=== PATIENT | female | born 1940 ===

== ENCOUNTER 2016-07-01 15:51 | Observation (INO) | payer MEDICARE, BC ==
--- NOTE | 2016-07-01 18:33 | ED ---
General Adult HPI - General Chief complaint: GI Bleed Stated complaint: RECTAL BLEEDING X 1 WEEK Time Seen by Provider: 07/01/16 18:12 Source: patient, RN notes reviewed Mode of arrival: ambulatory Limitations: no limitations - History of Present Illness Initial comments: Patient's a 75-year-old female who presents emergency room today with chief complaint of a bug stools. Patient does admit that she noticed blood in the stool 2 days ago. She states she woke up with mucus and bright red blood. States that he had normal bowel movement afterwards. States that 2 days later had another episode where some blood. States she went to the family doctor also surgeon. States she was scheduled for colonoscopy is coming Monday. Patient states was going to take the prednisone but was worried because she started noticing of blood again. States called the on-call nurse who advised come here to the emergency room. Patient does admit that she is on blood thinner due to A. fib. She denies any other complaints or symptoms. States never had colonoscopy in the past. Patient denies any recent fever, chills, shortness of breath, chest pain, back pain, nausea or vomiting, numbness or tingling, dysuria or hematuria, constipation or diarrhea, headaches or visual changes, or any other complaints. - Related Data Home Medications Medication Instructions Recorded Confirmed ALPRAZolam [Xanax] 0.75 mg PO BID 12/11/13 07/01/16 Atenolol [Tenormin] 75 mg PO BID@0700,1900 12/11/13 07/01/16 Flecainide [Tambocor] 100 mg PO BID 12/11/13 07/01/16 Rivaroxaban [Xarelto] 20 mg PO DAILY@1630 12/11/13 07/01/16 Anastrozole [Arimidex] 1 mg PO DAILY 07/01/16 07/01/16 Cholecalciferol [Vitamin D3] 5,000 unit PO DAILY 07/01/16 07/01/16 Vitamin C/Biotin [Hair, Skin and 1 tab PO DAILY 07/01/16 07/01/16 Nails] Allergies Allergy/AdvReac Type Severity Reaction Status Date / Time Penicillins Allergy Red face Verified 07/01/16 18:39 Oral steroids Allergy Red face Uncoded 07/01/16 18:39 Review of Systems ROS Statement: Those systems with pertinent positive or pertinent negative responses have been documented in the HPI. ROS Other: All systems not noted in ROS Statement are negative. Past Medical History Past Medical History: Atrial Fibrillation, CVA/TIA, Hypertension Additional Past Medical History / Comment(s): breast CA History of Any Multi-Drug Resistant Organisms: None Reported Past Surgical History: Adenoidectomy, Appendectomy, Section, Hysterectomy, Tonsillectomy Additional Past Surgical History / Comment(s): right mastectomy Past Psychological History: Anxiety Smoking Status: Former smoker Past Alcohol Use History: None Reported Past Drug Use History: None Reported General Exam - General Exam Comments Initial Comments: General: The patient is awake and alert, in no distress, and does not appear acutely ill. Eye: Pupils are equal, round and reactive to light, extra-ocular movements are intact. No nystagmus. There is normal conjunctiva bilaterally. No signs of icterus. Ears, nose, mouth and throat: There are moist mucous membranes and no oral lesions. Neck: The neck is supple, there is no tenderness or JVD. Cardiovascular: There is a regular rate and rhythm. No murmur, rub or gallop is appreciated. Respiratory: Lungs are clear to auscultation, respirations are non-labored, breath sounds are equal. No wheezes, stridor, rales, or rhonchi. Gastrointestinal: Soft, non-distended, non-tender abdomen without masses or organomegaly noted. There is no rebound or guarding present. No CVA tenderness. Bowel sounds are unremarkable. Musculoskeletal: Normal ROM, no tenderness. Strength 5/5. Sensation intact. Pulses equal bilaterally 2+. Neurological: A&O x 3. CN II-XII intact, There are no obvious motor or sensory deficits. Coordination appears grossly intact. Speech is normal. Skin: Skin is warm and dry and no rashes or lesions are noted. Psychiatric: Cooperative, appropriate mood & affect, normal judgment. : Normal rectal tone. Limitations: no limitations Course Vital Signs 07/01/16 15:58 Temperature 97.1 F L Pulse Rate 83 Respiratory 18 Rate Blood Pressure 194/84 O2 Sat by Pulse 100 Oximetry Medical Decision Making - Medical Decision Making Patient reexamined at about signs of distress. Patient's labs show stable hemoglobin. Patient's positive. Patient is on Xeralto. She also will be held. Patient will be admitted for serial CBC. Case discussed with the physician with consult to Dr. Hill who she is scheduled to have colonoscopy. - Lab Data Result diagrams: 07/01/16 18:30 07/01/16 18:30 Lab Results 07/01/16 07/01/16 07/01/16 Range/Units 18:30 18:30 18:30 WBC 6.5 (3.8-10.6) k/uL RBC 4.78 (3.80-5.40) m/uL Hgb 16.1 H (11.4-16.0) gm/dL Hct 47.3 H (34.0-46.0) % MCV 98.9 (80.0-100.0) fL MCH 33.6 (25.0-35.0) pg MCHC 34.0 (31.0-37.0) g/dL RDW 13.1 (11.5-15.5) % Plt Count 213 (150-450) k/uL Neutrophils % 64 % Lymphocytes % 21 % Monocytes % 8 % Eosinophils % 2 % Basophils % 1 % Neutrophils # 4.2 (1.3-7.7) k/uL Lymphocytes # 1.4 (1.0-4.8) k/uL Monocytes # 0.5 (0-1.0) k/uL Eosinophils # 0.1 (0-0.7) k/uL Basophils # 0.1 (0-0.2) k/uL PT (9.0-12.0) sec INR (<1.1) APTT (22.0-30.0) sec Sodium 143 (137-145) mmol/L Potassium 4.4 (3.5-5.1) mmol/L Chloride 106 (98-107) mmol/L Carbon Dioxide 25 (22-30) mmol/L Anion Gap 12 mmol/L BUN 17 (7-17) mg/dL Creatinine 0.80 (0.52-1.04) mg/dL Est GFR (MDRD) Af Amer >60 (>60 ml/min/1.73 sqM) Est GFR (MDRD) Non-Af >60 (>60 ml/min/1.73 sqM) Glucose 98 (74-99) mg/dL Calcium 9.2 (8.4-10.2) mg/dL Total Bilirubin 1.0 (0.2-1.3) mg/dL AST 26 (14-36) U/L ALT 28 (9-52) U/L Alkaline Phosphatase 120 (38-126) U/L Total Protein 7.0 (6.3-8.2) g/dL Albumin 4.1 (3.5-5.0) g/dL Stool Occult Blood Positive H (Negative) 07/01/16 Range/Units 18:30 WBC (3.8-10.6) k/uL RBC (3.80-5.40) m/uL Hgb (11.4-16.0) gm/dL Hct (34.0-46.0) % MCV (80.0-100.0) fL MCH (25.0-35.0) pg MCHC (31.0-37.0) g/dL RDW (11.5-15.5) % Plt Count (150-450) k/uL Neutrophils % % Lymphocytes % % Monocytes % % Eosinophils % % Basophils % % Neutrophils # (1.3-7.7) k/uL Lymphocytes # (1.0-4.8) k/uL Monocytes # (0-1.0) k/uL Eosinophils # (0-0.7) k/uL Basophils # (0-0.2) k/uL PT 12.4 H (9.0-12.0) sec INR 1.3 (<1.1) APTT 29.6 (22.0-30.0) sec Sodium (137-145) mmol/L Potassium (3.5-5.1) mmol/L Chloride (98-107) mmol/L Carbon Dioxide (22-30) mmol/L Anion Gap mmol/L BUN (7-17) mg/dL Creatinine (0.52-1.04) mg/dL Est GFR (MDRD) Af Amer (>60 ml/min/1.73 sqM) Est GFR (MDRD) Non-Af (>60 ml/min/1.73 sqM) Glucose (74-99) mg/dL Calcium (8.4-10.2) mg/dL Total Bilirubin (0.2-1.3) mg/dL AST (14-36) U/L ALT (9-52) U/L Alkaline Phosphatase (38-126) U/L Total Protein (6.3-8.2) g/dL Albumin (3.5-5.0) g/dL Stool Occult Blood (Negative) Disposition Clinical Impression: GI bleed Disposition: ADMITTED IP TO THIS [facility] Condition: Good Time of Disposition: 19:36
[2016-07-01 18:59] LABS: Basophils # (A) 0.1 k/uL (0-0.2); Basophils % (A) 1 %; CH 33.8; CHCM 34.3; Eosinophils # (A) 0.1 k/uL (0-0.7); Eosinophils % (A) 2 %; HCT 47.3 % (34.0-46.0); HDW 2.62; HGB 16.1 gm/dL (11.4-16.0); Luc # (Auto) 0.22; Luc % (Auto) 3; Lymphocytes # (A) 1.4 k/uL (1.0-4.8); Lymphocytes % (A) 21 %; MCH 33.6 pg (25.0-35.0); MCV 98.9 fL (80.0-100.0); Monocytes # (A) 0.5 k/uL (0-1.0); Monocytes % (A) 8 %; Neutrophils # (A) 4.2 k/uL (1.3-7.7); Neutrophils % (A) 64 %; RBC 4.78 m/uL (3.80-5.40); RDW 13.1 % (11.5-15.5); WBC 6.5 k/uL (3.8-10.6); WBC (Perox) 6.65
[2016-07-01 19:10] LABS: INR 1.3 (<1.1); Partial Thromboplastin Time 29.6 sec (22.0-30.0); Prothrombin Time 12.4 sec (9.0-12.0)
[2016-07-01 19:11] LABS: ALT 28 U/L (9-52); AST 26 U/L (14-36); Alkaline Phosphatase 120 U/L (38-126); Anion Gap 12 mmol/L; Blood Urea Nitrogen 17 mg/dL (7-17); Calcium 9.2 mg/dL (8.4-10.2); Carbon Dioxide 25 mmol/L (22-30); Chloride 106 mmol/L (98-107); Glucose 98 mg/dL (74-99); Non-African American GFR(MDRD) >60 (>60 ml/min/1.73 sqM); Potassium 4.4 mmol/L (3.5-5.1); Sodium 143 mmol/L (137-145)
[2016-07-01] MEDS ORDERED: SODIUM CHLORIDE 0.9% 1,000 ML IV ONE (19:36)
[2016-07-01] MEDS ORDERED: NALOXONE 0.4 MG/ML 1 ML VIAL IV PRN (19:36)
[2016-07-01] MEDS ORDERED: ONDANSETRON 4 MG/2 ML VIAL IVP PRN (19:36)
[2016-07-01] MEDS ORDERED: PANTOPRAZOLE 40 MG/10 ML VIAL IVP STA (19:36)
--- NOTE | 2016-07-01 19:48 | XR ---
EXAMINATION TYPE: XR KUB upright - 2V DATE OF EXAM: 07/01/2016 7:09 PM COMPARISON: NONE HISTORY: Pain with rectal bleeding for 2 weeks TECHNIQUE: 2 upright views FINDINGS: The bowel gas pattern is normal. No pneumatosis or pneumoperitoneum. The soft tissues and s keletal structures are negative for acute findings. Visualized lung bases and pleural spaces are unremarkable other than mildly elevated left hemidiaphra gm, etiology unclear. IMPRESSION: No acute radiographic process.
[2016-07-01] MEDS ORDERED: LORazepam 1 MG TAB PO STA (19:58)
[2016-07-01 20:22] LABS: Amorphous Sediment,Urine Occasional /hpf; Appearance,Urine Cloudy (Clear); Bacteria,Urine Rare /hpf; Bilirubin,Urine Negative (Negative); Glucose,Urine (UA) Negative (Negative); Ketones,Urine Negative (Negative); Leukocyte Esterase,Urine Large (Negative); Mucus,Urine Rare /hpf; Nitrite,Urine Negative (Negative); PH, Urine 5.5 (5.0-8.0); Particle Count 4644; Protein,Urine Negative (Negative); RBC,Urine 5 /hpf (0-5); Specific Gravity,Urine 1.007 (1.001-1.035); Squamous Epithelial Cell,Urine 2 /hpf (0-4); UA Billing (MACRO vs. MICRO) MICRO; Urobilinogen,Urine <2.0 mg/dL (<2.0); WBC,Urine 45 /hpf (0-5)
[2016-07-01 22:29] LABS: CH 33.4; CHCM 33.8; HDW 2.62; HGB 15.6 gm/dL (11.4-16.0); MCH 33.6 pg (25.0-35.0); MCHC 33.8 g/dL (31.0-37.0); MCV 99.3 fL (80.0-100.0); Mean Platelet Volume 9.4; RBC 4.63 m/uL (3.80-5.40); RDW 13.2 % (11.5-15.5); WBC 5.8 k/uL (3.8-10.6)
[2016-07-01] MEDS: LORazepam 1 MG TAB PO PRN (22:42)
[2016-07-01 22:55] VITALS: BMI 26.6
[2016-07-01] MEDS: FLECAINIDE 50 MG TAB PO SCH (23:40)
[2016-07-01] MEDS: ANASTROZOLE 1 MG TAB PO SCH (23:44)
[2016-07-02 07:18] LABS: Basophils # (A) 0.1 k/uL (0-0.2); Basophils % (A) 1 %; CH 33.3; CHCM 33.6; Eosinophils # (A) 0.1 k/uL (0-0.7); Eosinophils % (A) 2 %; HCT 46.6 % (34.0-46.0); HDW 2.63; HGB 15.3 gm/dL (11.4-16.0); Luc # (Auto) 0.18; Luc % (Auto) 3; Lymphocytes # (A) 1.4 k/uL (1.0-4.8); Lymphocytes % (A) 26 %; MCH 32.7 pg (25.0-35.0); MCHC 32.9 g/dL (31.0-37.0); MCV 99.6 fL (80.0-100.0); Mean Platelet Volume 7.8; Monocytes # (A) 0.4 k/uL (0-1.0); Monocytes % (A) 7 %; Neutrophils # (A) 3.3 k/uL (1.3-7.7); Neutrophils % (A) 61 %; RBC 4.68 m/uL (3.80-5.40); RDW 13.1 % (11.5-15.5); WBC 5.4 k/uL (3.8-10.6); WBC (Perox) 5.51
[2016-07-02 07:27] LABS: ALT 25 U/L (9-52); AST 19 U/L (14-36); Alkaline Phosphatase 109 U/L (38-126); Anion Gap 9 mmol/L; Blood Urea Nitrogen 13 mg/dL (7-17); Carbon Dioxide 28 mmol/L (22-30); Chloride 107 mmol/L (98-107); Glucose 95 mg/dL (74-99); INR 1.2 (<1.1); Non-African American GFR(MDRD) >60 (>60 ml/min/1.73 sqM); Potassium 4.5 mmol/L (3.5-5.1); Prothrombin Time 11.8 sec (9.0-12.0); Sodium 144 mmol/L (137-145); Total Protein 6.3 g/dL (6.3-8.2)
[2016-07-02] MEDS: FLECAINIDE 50 MG TAB PO SCH (08:29)
[2016-07-02] MEDS: ANASTROZOLE 1 MG TAB PO SCH ×2 (08:31→08:33)
[2016-07-02] MEDS: LORazepam 1 MG TAB PO PRN ×2 (09:05→15:34)
[2016-07-02] MEDS ORDERED: IOHEXOL 350 MG/ML 25 ML BOTTLE (ORAL USE) PO PRN ×2 (11:56→12:18)
[2016-07-02] MEDS: PANTOPRAZOLE 40 MG/10 ML VIAL IVP SCH (12:15)
--- NOTE | 2016-07-02 12:23 | P.GSCN ---
History of Present Illness Consult date: 07/02/16 Reason for Consult: GI bleed, mucousy diarrhea History of present illness: This is a 75-year-old female who was admitted to the hospitalist for complaints of rectal bleeding. Patient states that she started to have rectal bleeding and frequent bowel movements last week. She is seen Dr. Hill. She apparently scheduled for colonoscopy on Monday. Past Medical History Past Medical History: Atrial Fibrillation, CVA/TIA, Hypertension Additional Past Medical History / Comment(s): breast CA History of Any Multi-Drug Resistant Organisms: None Reported Past Surgical History: Adenoidectomy, Appendectomy, Section, Hysterectomy, Tonsillectomy Additional Past Surgical History / Comment(s): right mastectomy Past Psychological History: Anxiety Smoking Status: Former smoker Past Alcohol Use History: None Reported Past Drug Use History: None Reported Medications and Allergies Home Medications Medication Instructions Recorded Confirmed Type ALPRAZolam [Xanax] 0.75 mg PO BID 12/11/13 07/01/16 History Atenolol [Tenormin] 75 mg PO BID@0700,1900 12/11/13 07/01/16 History Flecainide [Tambocor] 100 mg PO BID 12/11/13 07/01/16 History Rivaroxaban [Xarelto] 20 mg PO DAILY@1630 12/11/13 07/01/16 History Anastrozole [Arimidex] 1 mg PO DAILY 07/01/16 07/01/16 History Cholecalciferol [Vitamin D3] 5,000 unit PO DAILY 07/01/16 07/01/16 History Vitamin C/Biotin [Hair, Skin and 1 tab PO DAILY 07/01/16 07/01/16 History Nails] Allergies Allergy/AdvReac Type Severity Reaction Status Date / Time Penicillins Allergy Red face Verified 07/01/16 18:39 Oral steroids Allergy Red face Uncoded 07/01/16 18:39 Surgical - Exam Vital Signs Temp Pulse Resp BP Pulse Ox 97.1 F L 83 18 194/84 100 07/01/16 15:58 07/01/16 15:58 07/01/16 15:58 07/01/16 15:58 07/01/16 15:58 - General well developed, no distress - Eyes PERRL - ENT normal pinna - Neck no masses - Respiratory normal expansion - Cardiovascular Rhythm: regular - Abdomen Abdomen: soft, non tender Results - Labs 07/02/16 07:00 07/02/16 07:00 Abnormal Lab Results - Last 24 Hours (Table) 07/02/16 Range/Units 07:00 Hct 46.6 H (34.0-46.0) % Diabetes panel 07/02/16 Range/Units 07:00 Sodium 144 (137-145) mmol/L Potassium 4.5 (3.5-5.1) mmol/L Chloride 107 (98-107) mmol/L Carbon Dioxide 28 (22-30) mmol/L BUN 13 (7-17) mg/dL Creatinine 0.79 (0.52-1.04) mg/dL Glucose 95 (74-99) mg/dL Calcium 9.0 (8.4-10.2) mg/dL AST 19 (14-36) U/L ALT 25 (9-52) U/L Alkaline Phosphatase 109 (38-126) U/L Total Protein 6.3 (6.3-8.2) g/dL Albumin 3.6 (3.5-5.0) g/dL Calcium panel 07/02/16 Range/Units 07:00 Calcium 9.0 (8.4-10.2) mg/dL Albumin 3.6 (3.5-5.0) g/dL Pituitary panel 07/02/16 Range/Units 07:00 Sodium 144 (137-145) mmol/L Potassium 4.5 (3.5-5.1) mmol/L Chloride 107 (98-107) mmol/L Carbon Dioxide 28 (22-30) mmol/L BUN 13 (7-17) mg/dL Creatinine 0.79 (0.52-1.04) mg/dL Glucose 95 (74-99) mg/dL Calcium 9.0 (8.4-10.2) mg/dL Adrenal panel 07/02/16 Range/Units 07:00 Sodium 144 (137-145) mmol/L Potassium 4.5 (3.5-5.1) mmol/L Chloride 107 (98-107) mmol/L Carbon Dioxide 28 (22-30) mmol/L BUN 13 (7-17) mg/dL Creatinine 0.79 (0.52-1.04) mg/dL Glucose 95 (74-99) mg/dL Calcium 9.0 (8.4-10.2) mg/dL Total Bilirubin 1.0 (0.2-1.3) mg/dL AST 19 (14-36) U/L ALT 25 (9-52) U/L Alkaline Phosphatase 109 (38-126) U/L Total Protein 6.3 (6.3-8.2) g/dL Albumin 3.6 (3.5-5.0) g/dL Assessment and Plan Plan: GI bleed and mucousy bowel movements. Patient will undergo colonoscopy Dr. Hill. She will receive bowel prep tomorrow.
[2016-07-02] MEDS ORDERED: cloNIDine HCL 0.1 MG TAB PO PRN (15:31)
[2016-07-02] MEDS ORDERED: hydrALAZINE HCL 20 MG/ML 1 ML VIAL IVP PRN (15:31)
[2016-07-02 15:55] LABS: Appearance,Urine Clear (Clear); Bacteria,Urine Rare /hpf; Bilirubin,Urine Negative (Negative); Glucose,Urine (UA) Negative (Negative); Ketones,Urine Negative (Negative); Leukocyte Esterase,Urine Moderate (Negative); Mucus,Urine Rare /hpf; Nitrite,Urine Negative (Negative); PH, Urine 5.5 (5.0-8.0); Particle Count 1166; Protein,Urine Negative (Negative); Specific Gravity,Urine 1.005 (1.001-1.035); Squamous Epithelial Cell,Urine <1 /hpf (0-4); UA Billing (MACRO vs. MICRO) MICRO; Urobilinogen,Urine <2.0 mg/dL (<2.0); WBC,Urine 4 /hpf (0-5)
--- NOTE | 2016-07-02 17:36 | HP ---
DATE OF ADMISSION: CHIEF COMPLAINT: Gastrointestinal bleed. HISTORY OF PRESENT ILLNESS: This 75-year-old woman with the past medical history of multiple medical problems such as history of atrial fibrillation, history of cerebrovascular accident, TIA, history of hypertension, history of breast cancer, history of anxiety being followed by Dr. Judith Loo as well as Cardiology from [facility], was complaining of passing mucus per rectum and as well as some lower gastrointestinal bleeding for last several days. The patient had some outpatient appointments with Dr. Hill and apparently colonoscopy was scheduled but because of increasing difficulties and other problems, the patient came to [facility] and was admitted for further evaluation and treatment. There is no significant fever, rigors or chills. Minimal discomfort in the abdomen was noted the first day. No history of headache, loss of consciousness, seizures. PAST MEDICAL HISTORY: History of atrial fibrillation, CVA, TIA, hypertension, history of breast cancer, adenoidectomy, appendectomy, history of anxiety. Medications prior to admission include home medications are: 1. Vitamin C. 2. Biotin 1 tablet p.o. daily. 3. Xarelto 20 mg p.o. daily. 4. Tambocor 100 mg p.o. b.i.d. 5. Vitamin D3 5000 daily. 6. Tenormin 75 mg p.o. daily. 7. Arimidex 1 mg p.o. daily. 8. Xanax 0.75 mg p.o. daily. ALLERGIES: PENICILLIN FAMILY HISTORY: No history of heart disease or strokes in the family. SOCIAL HISTORY: The patient is a director of [employer]. Previous history of smoking. No history of current smoking or alcohol intake. REVIEW OF SYSTEMS: ENT: No diminished vision. CARDIOVASCULAR: No angina or palpitations. RESPIRATORY: As mentioned earlier. GI: As mentioned earlier. : No dysuria. NERVOUS SYSTEM: As mentioned earlier. ALLERGY/IMMUNOLOGY: No asthma. MUSCULOSKELETAL: As mentioned earlier. HEMATOLOGY/ONCOLOGY: As mentioned earlier. ENDOCRINE: As mentioned earlier. CONSTITUTIONAL: As mentioned earlier. DERMATOLOGY: Negative. RHEUMATOLOGY: Negative. PSYCHIATRY: As mentioned earlier. PHYSICAL EXAMINATION: The patient is alert and oriented x3. Pulse is 53, blood pressure 219/95 improved to 153/71, respiration 16, temperature 97.2, pulse ox 97% on room air. HEENT: Conjunctivae normal. Oral mucosa moist. NECK: No jugular venous distention. CARDIOVASCULAR: S1 and S2, muffled. No S3, no S4. RESPIRATORY: Breath sounds diminished at the bases. No rhonchi, no crackles. ABDOMEN: Soft, nontender. No mass palpable. No ascites. Bowel sounds present. Otherwise, no guarding, no rigidity LEGS: No edema, no swelling. NERVOUS SYSTEM: Higher function as mentioned. Moves all four limbs. No focal motor deficits. LYMPHATIC: No lymphadenopathy in the neck, axillae or groin. SKIN: No ulcer, rash or bleeding. LABS: Hemoglobin 16.1, 15.6. and 15.3. INR is 1.3. UA noted. ASSESSMENT: 1. Acute lower gastrointestinal bleeding for evaluation, rule out colitis or diverticulosis. 2. Urinary tract infection possibly. 3. On Xarelto. 4. Atrial fibrillation. 5. History of cerebrovascular accident, transient ischemic attack. 6. Hypertension. 7. History of breast cancer. 8. History of adenoidectomy. 9. History of appendectomy. 10. History of section. 11. History of anxiety. 12. Remote history of nicotine dependence. 13. FULL CODE. RECOMMENDATIONS AND DISCUSSION: In this 75-year-old woman who presents with multiple complex medical issues, we will monitor the patient closely. Continue the current medications, symptomatic treatment. Will closely follow with Surgery for possible colonoscopy. The patient is on Xarelto also. Will also obtain a Cardiac consultation. Repeat labs will be ordered. Home medications will be continued and would also recommend to hold Xarelto for now because of continued bleeding episodes over the past one week. The prognosis is guarded because of multiple complex medical issues. Further recommendations to follow. Discussed with patient who understands. Copy of dictation forwarded to Dr. Judith Loo who is the primary physician. BALTAZAR
[2016-07-02] MEDS: ATENOLOL 25 MG TAB PO SCH (17:51)
--- NOTE | 2016-07-02 18:23 | CT ---
EXAMINATION TYPE: CT abdomen pelvis wo con DATE OF EXAM: 07/02/2016 4:24 PM COMPARISON: NONE HISTORY: Rectal bleeding x [address] DLP: 629.30 mGycm Automated exposure control for dose reduction was used. FINDINGS: There is dependent atelectasis at the lung bases. There is no pleural or pericardial fluid. There is cardiomegaly. Within the abdomen, the liver, spleen and gallbladder appear normal. Spleen is upper limits of normal in size. Both adrenal glands appear normal. There is no evidence of hydronephrosis or nephrolithiasis. Limited views of the pancreas demonstrates some pancreatic calcifications but no focal mass. There ar e vascular calcifications throughout the study. There is no significant retrocrural, iliac or inguinal adenopathy. The bladder is unremarkable. The u terus and ovaries are not visualized. There is wall thickening and pericolic inflammatory change in the rectosigmoid junction. There is ext ensive diverticular change and smooth muscle hypertrophy throughout the sigmoid region. The appendix is not visualized. Small bowel loops are unremarkable. No free fluid and no free air is seen. There are degenerative changes in the hips as well as the lower lumbar facets. There is extensive deg enerative disc disease and there are vacuum phenomena is present at L2-3 and L4-5. There is hypertrop hic spondylosis in the dorsal spine. There are retrograde listhesis of L1 on L2 and L2 on L3 which ar e degenerative in nature. IMPRESSION: 1. CARDIOMEGALY. 2. BORDERLINE SPLENOMEGALY. 3. EXTENSIVE DIVERTICULAR CHANGE. 4. MUCOSAL THICKENING AND PERICOLIC INFLAMMATORY CHANGE AT THE RECTOSIGMOID JUNCTION. THIS MAY BE SEC ONDARY TO DIVERTICULITIS. COLITIS COULD NOT BE EXCLUDED. 5. DEGENERATIVE CHANGES IN THE SPINE.
[2016-07-02] MEDS ORDERED: ATENOLOL 25 MG TAB PO SCH (19:00)
--- NOTE | 2016-07-02 20:45 | PN ---
Mrs. Pedroza is a 75-year-old female with a history of paroxysmal atrial fibrillation who presented with lower GI bleeding. She has history of atrial fibrillation on and off and has been maintained on flecainide and Xarelto and has been followed by Dr. Andres at [facility]. She has had the bleeding recently and was evaluated by Dr. Hill to undergo colonoscopy, but because of the persistent bleeding, came into the emergency room and was subsequently admitted. Patient does not feel any palpitation recently. Her breathing has been stable. She has no chest pain. No syncope. No PND, orthopnea. No peripheral edema. She had a prior cardiac workup done a few years ago and according to her, was unremarkable. Her coronary risk factors are remarkable for hypertension. She is nondiabetic, nonsmoker. Her medications include: 1. Atenolol 75 mg twice a day. 2. Flecainide 100 mg twice a day. 3. Xarelto 20 mg daily. 4. Vitamin D. REVIEW OF SYSTEMS: RESPIRATORY: She has no recent wheezing. No cough. No history of documented obstructive lung disease. GI: She had a history of GI bleeding in the past. Workup has been negative except for hemorrhoids. : No dysuria or hematuria. NERVOUS: She had the one episode of visual disturbance and subsequently diagnosed with ocular migraine. PHYSICAL EXAMINATION: A 75-year-old female; alert, oriented, in no apparent distress. Blood pressure running in the 150s with a heart rate in the 50s. According to the patient, she has significant white coat syndrome. HEAD: Normocephalic. EYES: Sclerae anicteric. NECK: Good carotid upstroke. No bruit. No jugular venous distention. LUNGS: Clear to auscultation. HEART: Regular rate and rhythm. S1, S2. No S3. No rub. ABDOMEN: Soft, nontender. Positive bowel sounds. No organomegaly. EXTREMITIES: No edema. Intact distal pulses. Lab data revealed hemoglobin of 15.3. BUN and creatinine 13 and 0.79, potassium 4.5. She is heme positive. EKG revealed sinus mechanism with sinus bradycardia and PACs. IMPRESSION: 1. Gastrointestinal bleeding. Workup in progress. 2. White coat syndrome hypertension. 3. Paroxysmal atrial fibrillation, remains in normal sinus rhythm. RECOMMENDATION: I agree with your plan of holding the Xarelto at this time. Patient is being evaluated to undergo colonoscopy on Monday. From the cardiac standpoint, there is no evidence of active arrhythmia or active disease. Depending on her progress, further recommendation will be made. Thank you for this consult. Will follow with you.
[2016-07-02] MEDS: ALPRAZolam 0.25 MG TAB PO SCH (21:07)
[2016-07-02] MEDS: LEVOFLOXACIN 500MG-D5W PMX 500 MG in DEXTROSE/WATER 1 100ML.BAG IVPB SCH (21:07)
[2016-07-02] MEDS ORDERED: FLECAINIDE 50 MG TAB PO SCH (22:00)
[2016-07-03] MEDS: ANASTROZOLE 1 MG TAB PO SCH ×2 (00:03→23:26)
[2016-07-03 01:08] LABS: Basophils % (A) 1 %; CH 33.3; CHCM 33.9; Eosinophils # (A) 0.2 k/uL (0-0.7); Eosinophils % (A) 3 %; HDW 2.61; HGB 14.4 gm/dL (11.4-16.0); Luc # (Auto) 0.21; Luc % (Auto) 4; Lymphocytes # (A) 1.6 k/uL (1.0-4.8); Lymphocytes % (A) 33 %; MCH 33.2 pg (25.0-35.0); MCHC 33.5 g/dL (31.0-37.0); MCV 98.9 fL (80.0-100.0); Mean Platelet Volume 8.5; Monocytes # (A) 0.4 k/uL (0-1.0); Monocytes % (A) 8 %; Neutrophils # (A) 2.5 k/uL (1.3-7.7); Neutrophils % (A) 51 %; RBC 4.34 m/uL (3.80-5.40); RDW 12.9 % (11.5-15.5); WBC (Perox) 4.67
[2016-07-03] MEDS: ATENOLOL 25 MG TAB PO SCH ×2 (06:30→18:36)
[2016-07-03] MEDS: CHOLECALCIFEROL 1,000 UNIT TAB PO SCH (08:14)
[2016-07-03] MEDS: PANTOPRAZOLE 40 MG/10 ML VIAL IVP SCH (08:15)
[2016-07-03] MEDS: ALPRAZolam 0.25 MG TAB PO SCH ×2 (08:16→22:03)
[2016-07-03 08:59] LABS: Basophils % (A) 1 %; CH 33.2; CHCM 33.2; Eosinophils # (A) 0.1 k/uL (0-0.7); Eosinophils % (A) 2 %; HCT 47.2 % (34.0-46.0); HDW 2.64; HGB 15.8 gm/dL (11.4-16.0); Luc % (Auto) 5; Lymphocytes # (A) 0.8 k/uL (1.0-4.8); Lymphocytes % (A) 18 %; MCH 33.8 pg (25.0-35.0); MCHC 33.5 g/dL (31.0-37.0); MCV 100.8 fL (80.0-100.0); Mean Platelet Volume 8.2; Monocytes # (A) 0.3 k/uL (0-1.0); Monocytes % (A) 7 %; Neutrophils % (A) 68 %; RBC 4.68 m/uL (3.80-5.40); RDW 13.1 % (11.5-15.5); WBC 4.5 k/uL (3.8-10.6); WBC (Perox) 4.62
[2016-07-03 09:11] LABS: Anion Gap 13 mmol/L; Blood Urea Nitrogen 10 mg/dL (7-17); Calcium 9.2 mg/dL (8.4-10.2); Carbon Dioxide 24 mmol/L (22-30); Chloride 106 mmol/L (98-107); Glucose 110 mg/dL (74-99); Non-African American GFR(MDRD) >60 (>60 ml/min/1.73 sqM); Potassium 4.4 mmol/L (3.5-5.1); Sodium 143 mmol/L (137-145)
[2016-07-03] MEDS: FLECAINIDE 50 MG TAB PO SCH ×2 (09:39→22:03)
[2016-07-03] MEDS ORDERED: PEG 3350-NA SULF,BICARB,CL/KCL 4,000 ML BOTTLE PO ONE (10:27)
--- NOTE | 2016-07-03 10:27 | P.PN ---
Subjective Principal diagnosis: Colitis The patient states she feels better today. She states she has no pain. She is wondering if she needs to stay in the hospital. Objective - Vital Signs Vital signs: Vital Signs Temp 97.4 F L 07/03/16 07:00 Pulse 64 07/03/16 07:00 Resp 16 07/03/16 07:00 BP 168/82 07/03/16 07:00 Pulse Ox 97 07/03/16 07:00 Intake & Output 07/02/16 07/03/16 07/03/16 18:59 06:59 18:59 Intake Total 300 Balance 300 Intake: Oral 300 Other: Voiding Method Toilet # Voids 3 1 - Constitutional General appearance: Present: cooperative - Gastrointestinal Gastrointestinal Comment(s): Abdomen soft. There is no significant tenderness - Labs CBC & Chem 7: 07/03/16 08:17 07/03/16 08:17 Labs: Abnormal Lab Results - Last 24 Hours (Table) 07/02/16 07/03/16 07/03/16 Range/Units 15:35 08: 08:17 Hct 47.2 H (34.0-46.0) % MCV 100.8 H (80.0-100.0) fL Lymphocytes # 0.8 L (1.0-4.8) k/uL Glucose 110 H (74-99) mg/dL Ur Leukocyte Esterase Moderate H (Negative) Urine WBC Clumps Rare H (None) /hpf Urine Bacteria Rare H (None) /hpf Urine Mucus Rare H (None) /hpf Microbiology - Last 24 Hours (Table) 07/02/16 15:35 Urine Culture - Preliminary Urine,Clean Catch Assessment and Plan Plan: CT scans performed yesterday which shows evidence of rectosigmoid inflammation. There is also extensive diverticular changes. I discussed patient that she will undergo colonoscopy Dr. Hill. I discussed through that I'm not sure Dr. Hill schedule and she will decide tomorrow when she will do her colonoscopy.
[2016-07-03] MEDS ORDERED: METOCLOPRAMIDE 5 MG TAB PO ONE (16:30)
--- NOTE | 2016-07-03 17:17 | PN ---
This 75-year-old woman who was admitted with lower gastrointestinal bleeding, mucosy diarrhea is being closely monitored. Abdominal and pelvis CAT scan has been done yesterday which showed cardiomegaly borderline splenomegaly and extensive diverticular disease and mucosal thickening and pericolic inflammatory changes at the rectus junction and degenerative joint disease of the spine was also noted. Surgery is planning colonoscopy tomorrow. Cardiology also has seen the patient and advised to continue to hold Xarelto at this time. PAST MEDICAL HISTORY: Reviewed. REVIEW OF SYSTEMS: CARDIOVASCULAR: No angina or palpitations. RESPIRATORY: As mentioned earlier. GASTROINTESTINAL: As mentioned earlier. : No dysuria. CENTRAL NERVOUS SYSTEM: No numbness or weakness. Current medications are: 1. Xanax 0.5 . 2. Arimidex 1 mg daily. 3. Tenormin 75 b.i.d. 4. Vitamin D3, 5000. 5. Catapres 0.1 q4h. 6. Tambocor, 100 mg p.o. b.i.d. 7. Apresoline 10 mg q.4h p.r.n. 8. Levaquin 500 mg every 24 hours. 9. Ativan 1 mg p.o. daily. 10. Narcan 0.2 q.2 p.r.n. 11. Zofran 4 mg q.8h p.r.n. 12. Protonix 40 mg IV daily. PHYSICAL EXAMINATION: The patient is alert and oriented times three. Pulse 64, blood pressure 160/82, respiratory rate 16, temperature 97.4, pulse ox 97% on room air. HEENT: Conjunctivae normal. Oral mucosa moist. NECK: No jugular venous distention. No carotid bruit. No lymph node enlargement. CARDIOVASCULAR: S1, S2 muffled. RESPIRATORY: Breath sounds diminished at the bases. No rhonchi. No crackles. ABDOMEN: Soft. Mild diffuse discomfort. No guarding. No rigidity. No mass palpable. Legs: No edema. No swelling. Nervous system: Higher functions as mentioned earlier. Moves all four limbs. No focal deficits. LYMPHATICS: No lymph nodes palpable in the neck, axillae or groin. SKIN: No ulcer, rash or bleeding. LABS: CMP within normal limits. Otherwise, glucose 110, UA noted. Cultures are pending, MCV 100.8. ASSESSMENT: 1. Acute lower gastrointestinal bleed for evaluation rule out colitis or diverticulitis. 2. Urinary tract infection possibly. 3. On Xarelto. 4. Atrial fibrillation. 5. History of cerebrovascular accident, transient ischemic attack. 6. Hypertension. 7. History of breast cancer. 8. History of adenoidectomy. 9. History of appendectomy 10. History of section. 11. History of anxiety. 12. Remote history of nicotine dependence. 13. FULL CODE. RECOMMENDATIONS AND DISCUSSION: Recommend to continue current medications, continue with monitoring, symptomatic treatment. Otherwise, at this time, I would recommend continue with antibiotics. Closely monitor and discussed with the patient at length and cardiology input appreciated. Colonoscopy tomorrow. Further recommendations to follow. MTDD
[2016-07-03] MEDS: LORazepam 1 MG TAB PO PRN (17:41)
[2016-07-03 19:54] LABS: Basophils # (A) 0.1 k/uL (0-0.2); Basophils % (A) 1 %; CH 33.5; CHCM 33.1; Eosinophils # (A) 0.1 k/uL (0-0.7); Eosinophils % (A) 2 %; HCT 50.2 % (34.0-46.0); HDW 2.64; HGB 16.5 gm/dL (11.4-16.0); Luc # (Auto) 0.18; Luc % (Auto) 3; Lymphocytes # (A) 1.4 k/uL (1.0-4.8); Lymphocytes % (A) 26 %; MCH 33.3 pg (25.0-35.0); MCHC 32.8 g/dL (31.0-37.0); MCV 101.7 fL (80.0-100.0); Macrocytosis Slight; Mean Platelet Volume 8.1; Monocytes # (A) 0.5 k/uL (0-1.0); Monocytes % (A) 8 %; Neutrophils # (A) 3.3 k/uL (1.3-7.7); Neutrophils % (A) 60 %; RBC 4.94 m/uL (3.80-5.40); RDW 13.1 % (11.5-15.5); WBC 5.6 k/uL (3.8-10.6); WBC (Perox) 5.55
[2016-07-03] MEDS: LEVOFLOXACIN 500MG-D5W PMX 500 MG in DEXTROSE/WATER 1 100ML.BAG IVPB SCH (20:52)
[2016-07-04] MEDS ORDERED: METOCLOPRAMIDE 5 MG TAB PO ONE (05:00)
[2016-07-04] MEDS: ATENOLOL 25 MG TAB PO SCH ×2 (06:31→17:30)
[2016-07-04] MEDS: PANTOPRAZOLE 40 MG/10 ML VIAL IVP SCH (07:51)
[2016-07-04 09:08] LABS: Anion Gap 18 mmol/L; Blood Urea Nitrogen 7 mg/dL (7-17); Calcium 9.8 mg/dL (8.4-10.2); Carbon Dioxide 19 mmol/L (22-30); Chloride 107 mmol/L (98-107); Glucose 85 mg/dL (74-99); Non-African American GFR(MDRD) >60 (>60 ml/min/1.73 sqM); Potassium 4.8 mmol/L (3.5-5.1); Sodium 144 mmol/L (137-145)
[2016-07-04] MEDS: ALPRAZolam 0.25 MG TAB PO SCH ×2 (09:15→20:57)
[2016-07-04] MEDS: CHOLECALCIFEROL 1,000 UNIT TAB PO SCH (09:29)
[2016-07-04] MEDS: FLECAINIDE 50 MG TAB PO SCH ×2 (09:36→20:58)
[2016-07-04 09:59] LABS: Basophils % (A) 1 %; CH 33.1; Eosinophils # (A) 0.1 k/uL (0-0.7); Eosinophils % (A) 2 %; HDW 2.63; Luc % (Auto) 3; Lymphocytes % (A) 27 %; MCH 32.9 pg (25.0-35.0); MCHC 32.6 g/dL (31.0-37.0); Mean Platelet Volume 8.4; Monocytes # (A) 0.3 k/uL (0-1.0); Monocytes % (A) 8 %; Neutrophils # (A) 2.3 k/uL (1.3-7.7); Neutrophils % (A) 60 %; RBC 5.15 m/uL (3.80-5.40); RDW 13.1 % (11.5-15.5); WBC 3.8 k/uL (3.8-10.6); WBC (Perox) 3.63
[2016-07-04] MEDS ORDERED: LACTATED RINGERS 1,000 ML IV ONE (14:28)
[2016-07-04] MEDS ORDERED: LIDOCAINE 1% INJ 10MG/ML (20 ML MDV) ONE (14:40)
[2016-07-04] MEDS ORDERED: PROPOFOL 10 MG/ML 20 ML VIAL IV ONE (14:40)
--- NOTE | 2016-07-04 14:45 | P.PN ---
Progress Note - Text The patient had been scheduled for colonoscopy with possible hemorrhoid banding today. Will proceed here.
--- NOTE | 2016-07-04 15:10 | P.PCN ---
Date of Procedure: 07/04/16 Preoperative Diagnosis: Rectal bleeding, change in bowel habits Postoperative Diagnosis: Same, atypical mucosa 20 cm with possible stricture 30 cm Procedure(s) Performed: Incomplete colonoscopy with biopsy Anesthesia: MAC Surgeon: Elana Hill Pathology: other (20 cm) Condition: stable Disposition: PACU Indications for Procedure: The patient had been worked up as outpatient because of change in bowel habits with diarrhea and rectal bleeding. She had had a oh patient colonoscopy scheduled today. However, She was admitted to the hospital Monday due to the complaints of bleeding and prepped over the weekend. Operative Findings: The patient is taken to the endoscopy suite where colonoscope is passed to about 30 cm. At 20 cm there is an area of mucosal edema and erythema. I'm able to pass the scope beyond that to about 30 cm however at that location there is either severe angulation or stricture. She was repositioned several times and risk perforation so the procedure was discontinued at that point. The scope was withdrawn to 30 cm and several cold biopsies were obtained of the mucosa. She had some small internal hemorrhoids on retroflexion of the scope. She tolerated the procedure without difficulty and is taken recovery room in satisfactory condition. I'll discuss this with patient and family. She needs a barium enema to evaluate the area further. Further recommendations to follow.
--- NOTE | 2016-07-04 16:17 | P.PN ---
Progress Note - Text The colonoscopy was unable to be completed due to either an acute angulation of the colon or a stricture at 30 cm. There was localized mucosal atypia and edema at 30 cm. This is possibly due to inflammatory bowel disease or less likely malignancy. This was discussed with patient and family. Additional testing is ordered. I will see her on with further recommendations to follow.
[2016-07-04] MEDS: LORazepam 1 MG TAB PO PRN (16:30)
--- NOTE | 2016-07-04 17:45 | PN ---
This 75 -year-old woman who was admitted with lower gastrointestinal bleeding and significant mucus in the abdomen was suspected to have colitis or diverticulitis. The patient is being closely monitored. The patient has been scheduled for colonoscopy today by surgery. No chest pain. No palpitations. No fever. Patient has go apparently panic attack and anxiety this morning. On exam, alert and oriented times three. Pulse 56, blood pressure ntd , respirations 19, temperature 97.7, pulse ox 97% on room air. HEENT: Conjunctivae normal. NECK: No jugular venous distention. CARDIOVASCULAR: S1, S2 muffled. RESPIRATORY: Breath sounds diminished at the bases. No rhonchi, no crackles. ABDOMEN: Soft, nontender. No mass palpable. LEGS: No edema. No swelling. CENTRAL NERVOUS SYSTEM: No focal deficits. LABS: MCV 101. WBC 3.8. ASSESSMENT: 1. Gastrointestinal bleeding for evaluation rule out colitis or diverticulitis. 2. Urinary tract infection possibly, was on Xarelto, on hold. 3. Atrial fibrillation, proximal. 4. History of cerebrovascular accident, transient ischemic attack. 5. Hypertension. 6. History of breast cancer. 7. History of adenoidectomy. 8. History of appendectomy. 9. History of section. 10. History of anxiety. 11. Remote history nicotine dependence. 12. FULL CODE. RECOMMENDATIONS AND DISCUSSION: In this 75-year-old woman who presented with multiple complex medical issues, we will monitor the patient closely. Continue the current medications. Continue symptomatic treatment. Otherwise, repeat labs. Otherwise, colonoscopy with surgery. Guarded prognosis. Further recommendations to follow. MTDD
[2016-07-04 18:20] LABS: Basophils % (A) 1 %; CH 33.4; CHCM 33.2; Eosinophils # (A) 0.1 k/uL (0-0.7); Eosinophils % (A) 2 %; HCT 48.8 % (34.0-46.0); HDW 2.64; HGB 16.1 gm/dL (11.4-16.0); Luc # (Auto) 0.14; Luc % (Auto) 3; Lymphocytes # (A) 1.1 k/uL (1.0-4.8); Lymphocytes % (A) 26 %; MCH 33.5 pg (25.0-35.0); MCHC 33.1 g/dL (31.0-37.0); MCV 101.1 fL (80.0-100.0); Mean Platelet Volume 7.6; Monocytes # (A) 0.3 k/uL (0-1.0); Monocytes % (A) 8 %; Neutrophils # (A) 2.7 k/uL (1.3-7.7); Neutrophils % (A) 61 %; RBC 4.82 m/uL (3.80-5.40); RDW 13.1 % (11.5-15.5); WBC 4.5 k/uL (3.8-10.6); WBC (Perox) 4.51
[2016-07-04 23:37] VITALS: RESP 20
[2016-07-04] MEDS: ANASTROZOLE 1 MG TAB PO SCH (23:38)
[2016-07-05] MEDS: ATENOLOL 25 MG TAB PO SCH (05:38)
[2016-07-05 07:30] VITALS: BP 130/65; PULSE 55; TEMP 98.1
[2016-07-05] MEDS: PANTOPRAZOLE 40 MG/10 ML VIAL IVP SCH (07:33)
[2016-07-05] MEDS: CHOLECALCIFEROL 1,000 UNIT TAB PO SCH (07:33)
[2016-07-05] MEDS: ALPRAZolam 0.25 MG TAB PO SCH (07:33)
[2016-07-05 09:49] LABS: Basophils % (A) 1 %; CH 33.5; CHCM 33.7; Eosinophils # (A) 0.1 k/uL (0-0.7); Eosinophils % (A) 2 %; HDW 2.62; HGB 16.6 gm/dL (11.4-16.0); Luc # (Auto) 0.14; Luc % (Auto) 3; Lymphocytes # (A) 1.2 k/uL (1.0-4.8); Lymphocytes % (A) 22 %; MCH 33.1 pg (25.0-35.0); MCHC 33.2 g/dL (31.0-37.0); MCV 99.9 fL (80.0-100.0); Mean Platelet Volume 7.9; Monocytes # (A) 0.4 k/uL (0-1.0); Monocytes % (A) 8 %; Neutrophils # (A) 3.4 k/uL (1.3-7.7); Neutrophils % (A) 64 %; RBC 5.01 m/uL (3.80-5.40); WBC 5.2 k/uL (3.8-10.6); WBC (Perox) 5.39
[2016-07-05] MEDS: FLECAINIDE 50 MG TAB PO SCH (09:56)
[2016-07-05 11:06] LABS: Anion Gap 16 mmol/L; Blood Urea Nitrogen 10 mg/dL (7-17); Calcium 9.7 mg/dL (8.4-10.2); Carbon Dioxide 21 mmol/L (22-30); Chloride 104 mmol/L (98-107); Glucose 84 mg/dL (74-99); Non-African American GFR(MDRD) >60 (>60 ml/min/1.73 sqM); Potassium 4.5 mmol/L (3.5-5.1); Sodium 141 mmol/L (137-145)
--- NOTE | 2016-07-06 13:53 | DS ---
DATE OF ADMISSION: 07/01/2016 DATE OF DISCHARGE: 07/05/2016 DATE OF SERVICE: 07/05/2016 FINAL DIAGNOSES: 1. Acute gastrointestinal bleeding for evaluation to rule out colitis or diverticulitis, status post colonoscopy. 2. Urinary tract infection, possibly. 3. Was on Xarelto, on hold. 4. Atrial fibrillation, paroxysmal. 5. History of cerebrovascular accident, transient ischemic attack. 6. Hypertension. 7. History of breast cancer. 8. History of adenoidectomy. 9. History of appendectomy. 10. History of section. 11. Anxiety, not otherwise specified. 12. Remote history of nicotine dependence. 13. FULL CODE. DISCHARGE DISPOSITION: Patient will be discharged in a stable condition with guarded prognosis. HISTORY OF PRESENT ILLNESS: This is a 75-year-old woman with a past medical history of multiple medical problems admitted with acute GI bleeding and as well as significant mucus in the blood. Patient was treated conservatively. Dr. Hill was consulted and Dr. Hill performed a colonoscopy that showed multiple findings including atypical mucosa 20 cm and possible stricture of 30 cm. Biopsies were taken. Dr. Hill has recommended the patient to followup patient in the outpatient setting with barium enema and the biopsy reports. On exam, vitals are stable. CARDIOVASCULAR SYSTEM: S1, S2. ABDOMEN: Soft. NERVOUS SYSTEM: No focal deficits. The patient was kept in the hospital because of the recurrent symptoms and multiple medical issues as mentioned earlier which was not possible in an outpatient setting. The prognosis is extremely guarded because of the multiple medical issues. Patient is extremely anxious as the patient also had an episode of panic attack while in the hospital one morning. See orders and multiple consultations and other notes for further details. Discharge advice: Diet is clear liquids until the barium enema and Xarelto on hold to be restarted after the barium testing and after clearance from Surgery. Other medications are: 1. Xanax 0.75p.o. b.i.d. 2. Arimidex 1 mg daily. 3. Tenormin 75 mg p.o. b.i.d. 4. Vitamin D3 five thousand daily. 5. Tambocor 100 mg p.o. b.i.d. Follow up with Dr. Treviño after discharge. Please follow up with Dr. Hill's detailed endoscopic research for further information.
== END 2016-07-05 13:52 | disposition home or self-care (01) ==
LOC: EC 15:51 → 5MS5E 20:57 → 4MS4W 07-02 10:31
PROVIDERS: ADMIT Hospitalist; ATTEND Hospitalist
DX: K92.2 Gastrointestinal hemorrhage, unspecified (principal); Z79.01 Long term (current) use of anticoagulants; Z79.811 Long term (current) use of aromatase inhibitors; I48.0 Paroxysmal atrial fibrillation; Z86.73 Personal history of transient ischemic attack (TIA), and cerebral infarction without residual deficits; I11.9 Hypertensive heart disease without heart failure; Z85.3 Personal history of malignant neoplasm of breast; Z90.11 Acquired absence of right breast and nipple; Z90.710 Acquired absence of both cervix and uterus; Z87.891 Personal history of nicotine dependence; F41.9 Anxiety disorder, unspecified; K64.8 Other hemorrhoids
CPT/HCPCS: 96374 ×2; 99285 ×2; 36415; 93005; 88305; 80053 ×2; 80048 ×3; 82378; 85025 ×5; 85027; 85610 ×2; 85730; 82272; 81001 ×2; 87040; 87324; 83993; 87086; 74000; 74176; 45380; 96375; G0378 ×5; J0360; J1956 ×2; J2001; S0170 ×3; J2704; C9113 ×4; 96365; 96366; 96376

== ENCOUNTER → 2016-07-06 | Outpatient (CLI) | payer MEDICARE, BC ==
--- NOTE | 2016-07-06 15:57 | FL ---
EXAMINATION TYPE: FL barium enema DATE OF EXAM: 07/06/2016 11:30 AM COMPARISON: NONE HISTORY: Incomplete colonoscopy TECHNIQUE: A double contrast barium enema study is performed. Contrast refluxed through the colon. T his was drained and then refilled with air. Multiple images were obtained with fluoroscopy and overhe ad radiographs. FINDINGS: Cable Spooler view of the abdomen is obtained and felt to be noncontributory. Contrast fills the cecum. Some reflux into the terminal ileum was evident. There are a few small scattered diverticuli within the redundant sigmoid colon. No persistent filling defects are evident. No circumferential area of narrowing is evident. Left and right lateral decubit us views are obtained. IMPRESSION: 1. Mild diverticulosis. 2. No suspicious changes within the colon.
== END | disposition home or self-care (01) ==
LOC: RADFLMAIN 09:04
PROVIDERS: ATTEND Hospitalist
DX: K57.30 Diverticulosis of large intestine without perforation or abscess without bleeding (principal)
CPT/HCPCS: 74270

== ENCOUNTER → 2017-08-09 | Outpatient (CLI) | payer MEDICARE, BC ==
--- NOTE | 2017-08-09 21:11 | US ---
EXAMINATION TYPE: US thyroid st tissue head/neck DATE OF EXAM: 08/09/2017 COMPARISON: 05/21/2013 thyroid ultrasound CLINICAL HISTORY: E04.1 SINGLE THYROID NODULE. GLAND SIZE: Right Lobe: 5.2 x 2.0 x 1.8 cm Overall Parenchyma: heterogenous Left Lobe: 5.1 x 2.3 x 2.0 cm Overall Parenchyma: heterogeneous Isthmus Thickness: 0.4 cm NODULES RIGHT: # of nodules measured on right: 3 1. 1.6 X 0.9 x 1.5 cm hypoechoic mixed nodule at the mid pole with well-defined margins; . This no dule is wider than tall and shows intranodular vascularity. Prior size: 1.6 x 1.0 x 1.6 cm 2. 0.6 X 0.5 x 0.7 cm hypoechoic cystic nodule at the mid pole with well-defined margins; . This no dule is wider than tall and shows no intranodular vascularity. Prior size: Not previously measured 3. 0.8 X 0.3 x 0.6 cm echogenic solid calcified nodule at the lower pole with well-defined margins; . This nodule is wider than tall and shows no intranodular vascularity. Prior size: 0.8 cm LEFT: # of nodules measured on left: 1 1. 2.4 X 1.5 x 2.0 cm hypoechoic solid nodule at the mid pole with well-defined margins; interrupte d peripheral calcification. This nodule is wider than tall and shows intranodular vascularity. Prior size: 2.2 x 1.5 x 1.8 cm ISTHMUS: # of nodules measured in the isthmus: 0 Bilateral neck scanned, no evidence of lymphadenopathy. Redemonstration of heterogeneous normal-sized thyroid with scattered stable nodules. No new suspiciou s nodules are identified IMPRESSION: Heterogeneous multinodular normal-sized thyroid redemonstrated felt Stable. No new nodules are seen.
== END | disposition home or self-care (01) ==
LOC: RADUSWWP 16:07
PROVIDERS: ATTEND Family Medicine
DX: E04.1 Nontoxic single thyroid nodule (principal); E04.2 Nontoxic multinodular goiter
CPT/HCPCS: 76536

== ENCOUNTER → 2017-11-17 | Outpatient (CLI) | payer MEDICARE, BC ==
--- NOTE | 2017-11-17 08:28 | CT ---
EXAMINATION TYPE: CT brain wo con DATE OF EXAM: 11/17/2017 HISTORY: Head injury, history of breast CA CT DLP: 1121 mGycm. Automated Exposure Control for Dose Reduction was Utilized. TECHNIQUE: CT scan of the head is performed without contrast. COMPARISON: Prior CT brain August 11, 2010. FINDINGS: There is no acute intracranial hemorrhage or midline shift identified. There is diffuse v entricular and sulcal prominence consistent with diffuse age-related cerebral atrophy. There is low- attenuation in the periventricular white matter consistent with chronic small vessel ischemic change. The globes are intact and the visualized sinuses are clear. The calvarium is intact. IMPRESSION: No acute intracranial hemorrhage or midline shift. There is mild diffuse cerebral atrop hy and chronic small vessel ischemic change redemonstrated. Slight progression from 2011 CT is noted .
== END | disposition home or self-care (01) ==
LOC: RADCTMAIN 07:53
PROVIDERS: ATTEND Internal Medicine Medical Oncology
DX: C50.411 Malignant neoplasm of upper-outer quadrant of right female breast (principal); G31.9 Degenerative disease of nervous system, unspecified; I67.82 Cerebral ischemia
CPT/HCPCS: 70450

== ENCOUNTER → 2018-02-07 | Outpatient (CLI) | payer MEDICARE, BC ==
[2018-02-07 12:24] LABS: Basophils % (A) 1 %; Eosinophils % (A) 0 %; HCT 43.4 % (34.0-46.0); HGB 13.6 gm/dL (11.4-16.0); Hypochromasia Slight; Lymphocytes % (A) 27 %; MCH 29.8 pg (25.0-35.0); MCHC 31.5 g/dL (31.0-37.0); MCV 94.5 fL (80.0-100.0); Monocytes # (A) 0.3 k/uL (0-1.0); Monocytes % (A) 7 %; Neutrophils # (A) 2.3 k/uL (1.3-7.7); Neutrophils % (A) 61 %; Platelet Count 206 k/uL (150-450); RBC 4.59 m/uL (3.80-5.40); WBC 3.8 k/uL (3.8-10.6)
[2018-02-07 14:30] LABS: Erythrocyte Sedimentation Rate 20 mm/hr (0-20)
[2018-02-07 17:54] LABS: Albumin 4.2 g/dL (3.80-4.90); Albumin/Globulin Ratio 1.83 (1.20-2.10); Anion Gap 6.9 mmol/L (4.00-12.00); Calcium 9.1 mg/dL (8.7-10.3); Carbon Dioxide 24.1 mmol/L (21.6-31.8); Globulin 2.3 g/dL (2.1-3.7); Potassium 4.3 mmol/L (3.5-5.5); Total Protein 6.5 g/dL (6.2-8.2)
[2018-02-07 18:48] LABS: Rheumatoid Factor 10 IU/mL (0-15)
== END | disposition home or self-care (01) ==
LOC: LABWHC1 11:20
PROVIDERS: ATTEND Family Medicine
DX: D72.819 Decreased white blood cell count, unspecified (principal); I10 Essential (primary) hypertension
CPT/HCPCS: 36415; 80053; 84443; 85025; 85652; 86038; 86431

== ENCOUNTER → 2018-04-12 | Outpatient (CLI) | payer MEDICARE, BC ==
[2018-04-12 16:32] LABS: Albumin/Globulin Ratio 1.67 (1.20-2.10); Anion Gap 10.4 mmol/L (4.00-12.00); Calcium 8.7 mg/dL (8.7-10.3); Carbon Dioxide 23.6 mmol/L (21.6-31.8); Globulin 2.4 g/dL (1.6-3.3); Potassium 4.1 mmol/L (3.5-5.5); Total Protein 6.4 g/dL (6.2-8.2)
== END ==
LOC: LABWHC1 10:22
PROVIDERS: ATTEND Internal Medicine Medical Oncology
DX: C50.411 Malignant neoplasm of upper-outer quadrant of right female breast (principal)
CPT/HCPCS: 36415; 80053

== ENCOUNTER → 2018-06-19 | Outpatient (CLI) | payer MEDICARE, BC ==
--- NOTE | 2018-06-20 09:08 | US ---
EXAMINATION TYPE: US kidneys/renal and bladder DATE OF EXAM: 06/19/2018 COMPARISON: NONE CLINICAL HISTORY: R31.0 GROSS HEMATURIA. EXAM MEASUREMENTS: Right Kidney: 9.8 x 3.8 x 4.6 cm Left Kidney: 10.4 x 4.5 x 4.5 cm Right Kidney: No hydronephrosis or masses seen Left Kidney: No hydronephrosis or masses seen Bladder: Mild urinary bladder wall thickening. Bilateral Jets seen: yes Normal Post Void Residual: There is no evidence for hydronephrosis at this point in time. No nephrolithiasis is seen. No desiree s are identified. The urinary bladder is anechoic. Bilateral ureteral jets are seen. IMPRESSION: Mild urinary bladder wall thickening of uncertain etiology.
== END | disposition home or self-care (01) ==
LOC: RADUSWWP 16:12
PROVIDERS: ATTEND Urology
DX: N32.89 Other specified disorders of bladder (principal)
CPT/HCPCS: 76770

== ENCOUNTER → 2018-08-20 | Outpatient (CLI) | payer MEDICARE, BC ==
[2018-08-20 10:25] LABS: Basophils % (A) 0 %; Eosinophils % (A) 1 %; HCT 42.5 % (34.0-46.0); Hypochromasia Slight; Lymphocytes # (A) 0.9 k/uL (1.0-4.8); Lymphocytes % (A) 28 %; MCH 29.4 pg (25.0-35.0); MCHC 30.7 g/dL (31.0-37.0); MCV 95.8 fL (80.0-100.0); Mean Platelet Volume 8.3; Monocytes # (A) 0.2 k/uL (0-1.0); Monocytes % (A) 6 %; Neutrophils # (A) 1.9 k/uL (1.3-7.7); Neutrophils % (A) 61 %; Platelet Count 194 k/uL (150-450); RBC 4.44 m/uL (3.80-5.40); RDW 15.7 % (11.5-15.5); WBC 3.1 k/uL (3.8-10.6)
[2018-08-20 17:29] LABS: Albumin/Globulin Ratio 1.67 (1.60-3.17); Anion Gap 12.4 mmol/L (4.00-12.00); Calcium 8.5 mg/dL (8.7-10.3); Carbon Dioxide 22.6 mmol/L (21.6-31.8); Globulin 2.4 g/dL (1.6-3.3); Potassium 4.5 mmol/L (3.5-5.5); Total Bilirubin 0.8 mg/dL (0.2-1.2); Total Protein 6.4 g/dL (6.2-8.2)
== END | disposition home or self-care (01) ==
LOC: LABWHC1 09:18
PROVIDERS: ATTEND Internal Medicine Gastroenterology
DX: R94.5 Abnormal results of liver function studies (principal)
CPT/HCPCS: 36415; 80053; 85025

== ENCOUNTER 2018-09-28 09:47 | Emergency (ER) | payer MEDICARE, BC ==
[2018-09-28 09:55] VITALS: RESP 18
--- NOTE | 2018-09-28 10:49 | ED ---
General Adult HPI - General Chief complaint: ENT Stated complaint: cough/weakness Time Seen by Provider: 09/28/18 10:07 Source: patient, RN notes reviewed, old records reviewed Mode of arrival: ambulatory Limitations: no limitations - History of Present Illness Initial comments: Patient is a 70-year-old female presents restarted today with 3 weeks of cough, and fatigue. Patient states that she was treated for sinus infection with Ceftin year, possibly 2 weeks ago. She completed 10 day course of the Ceftin. Patient states she is continued to have coughing. She states this to dry cough. She saw her PCP and then was started on loratadine and montelukast. Patient states that she has had no specific fevers this time. She denies any change in urination or bowel habits. Denies any associated chest pain. - Related Data Home Medications Medication Instructions Recorded Confirmed ALPRAZolam [Xanax] 0.75 mg PO BID 12/11/13 07/01/16 Atenolol [Tenormin] 75 mg PO BID@0700,1900 12/11/13 07/01/16 Flecainide [Tambocor] 100 mg PO BID 12/11/13 07/01/16 Anastrozole [Arimidex] 1 mg PO DAILY 07/01/16 07/01/16 Cholecalciferol [Vitamin D3] 5,000 unit PO DAILY 07/01/16 07/01/16 Previous Rx's Medication Instructions Recorded LORazepam [Ativan] 0.5 mg PO BID #8 tab 03/19/17 Azithromycin [Zithromax Z-pack] 250 mg PO DIRECTED #6 tab 09/28/18 Promethazine/Dextromethorphan 5 ml PO TID #120 ml 09/28/18 [Phenergan DM Syrup] Allergies Allergy/AdvReac Type Severity Reaction Status Date / Time Penicillins Allergy Red face Verified 09/28/18 09:50 Oral steroids Allergy Red face Uncoded 09/28/18 09:50 Review of Systems ROS Statement: Those systems with pertinent positive or pertinent negative responses have been documented in the HPI. ROS Other: All systems not noted in ROS Statement are negative. Past Medical History Past Medical History: Atrial Fibrillation, Hypertension Additional Past Medical History / Comment(s): breast CA. colitis. History of Any Multi-Drug Resistant Organisms: None Reported Past Surgical History: Adenoidectomy, Appendectomy, Section, Hysterectomy, Tonsillectomy Additional Past Surgical History / Comment(s): right lumpectomy. left ovary removed 1967. Past Psychological History: Anxiety Smoking Status: Former smoker Past Alcohol Use History: None Reported Past Drug Use History: None Reported General Exam - General Exam Comments Initial Comments: This is a 78-year-old female. Alert and oriented 3. No significant distress. Limitations: no limitations General appearance: alert, in no apparent distress Head exam: Present: atraumatic, normocephalic, normal inspection Eye exam: Present: normal appearance, PERRL, EOMI. Absent: scleral icterus, conjunctival injection, periorbital swelling ENT exam: Present: normal exam, mucous membranes moist, other (Boggy erythematous turbinates.) Neck exam: Present: normal inspection. Absent: tenderness, meningismus, lymphadenopathy Respiratory exam: Present: normal lung sounds bilaterally. Absent: respiratory distress, wheezes, rales, rhonchi, stridor Cardiovascular Exam: Present: regular rate, normal rhythm, normal heart sounds. Absent: systolic murmur, diastolic murmur, rubs, gallop, clicks GI/Abdominal exam: Present: soft, normal bowel sounds. Absent: distended, tenderness, guarding, rebound, rigid Extremities exam: Present: normal inspection, full ROM, normal capillary refill. Absent: tenderness, pedal edema, joint swelling, calf tenderness Back exam: Present: normal inspection Course Vital Signs 09/28/18 09/28/18 09/28/18 09:50 11:00 11:07 Temperature 99 F Pulse Rate 58 L 60 60 Respiratory 18 Rate Blood Pressure 181/71 O2 Sat by Pulse 95 Oximetry EKG Findings - EKG Comments: EKG Findings:: EKG performed at 1126 or sinus bradycardia with sinus arrhythmia. Ventricular rate of 55 beats were minute. Was 28 and also conspicuous ration 102 ms. QT QTc is 470/457 ms. Medical Decision Making - Medical Decision Making 70-year-old female with cough congestion, fatigue for the past few days. She states the cough however 3 weeks. This demonstrated to have relatively clear. Vital signs are stable. Patient concerned that things were getting worse into her chest came in for chest x-ray. Chest shows possibility of early infiltrate right heart size. Patient EKG was reviewed and normal. Patient's was started on IV fluids lab work obtained. Lab work shows normal white blood cell count. Given IV dose of Solu-Medrol and Rocephin to cover for pneumonia. I discussed the case with the Patient for treatment are Patient would benefit from outpatient treatment as well. Patient states she agrees to be treated outpatient with close follow up her primary care doctor. Will discharge Patient with azithromycin. Her questions answered. - Lab Data Result diagrams: 09/28/18 11:19 09/28/18 11: Lab Results 09/28/18 09/28/18 Range/Units 11:19 11:19 WBC 9.2 (3.8-10.6) k/uL RBC 4.08 (3.80-5.40) m/uL Hgb 12.1 (11.4-16.0) gm/dL Hct 38.0 (34.0-46.0) % MCV 93.1 (80.0-100.0) fL MCH 29.7 (25.0-35.0) pg MCHC 31.9 (31.0-37.0) g/dL RDW 14.7 (11.5-15.5) % Plt Count 250 (150-450) k/uL Neutrophils % 82 % Lymphocytes % 11 % Monocytes % 5 % Eosinophils % 0 % Basophils % 0 % Neutrophils # 7.5 (1.3-7.7) k/uL Lymphocytes # 1.0 (1.0-4.8) k/uL Monocytes # 0.4 (0-1.0) k/uL Eosinophils # 0.0 (0-0.7) k/uL Basophils # 0.0 (0-0.2) k/uL Sodium 139 (137-145) mmol/L Potassium 4.4 (3.5-5.1) mmol/L Chloride 107 (98-107) mmol/L Carbon Dioxide 22 (22-30) mmol/L Anion Gap 10 mmol/L BUN 15 (7-17) mg/dL Creatinine 0.80 (0.52-1.04) mg/dL Est GFR (CKD-EPI)AfAm 82 (>60 ml/min/1.73 sqM) Est GFR (CKD-EPI)NonAf 71 (>60 ml/min/1.73 sqM) Glucose 106 H (74-99) mg/dL Calcium 8.9 (8.4-10.2) mg/dL Total Bilirubin 0.9 (0.2-1.3) mg/dL AST 31 (14-36) U/L ALT 24 (9-52) U/L Alkaline Phosphatase 134 H (38-126) U/L Total Protein 6.9 (6.3-8.2) g/dL Albumin 3.6 (3.5-5.0) g/dL - Radiology Data Radiology results: report reviewed Borderline heart size and chronic proximal changes. 2 peripheral left basilar atelectasis versus early developing infiltrate. Disposition Clinical Impression: Pneumonia Disposition: HOME SELF-CARE Condition: Good Instructions (If sedation given, give patient instructions): Community Acquired Pneumonia (ED) Additional Instructions: Continue ALLERGY decongestant medicine. Use the cough syrup and complete antibiotic as prescribed. Have close follow-up with her primary care doctor. Return to the emergency department if any alarming signs or symptoms occur. Prescriptions: Promethazine/Dextromethorphan [Phenergan DM Syrup] 5 ml PO TID #120 ml Azithromycin [Zithromax Z-pack] 250 mg PO DIRECTED #6 tab Is patient prescribed a controlled substance at d/c from ED?: No Referrals: Judith Loo MD [Primary Care Provider] - 1-2 days Time of Disposition: 12:21
--- NOTE | 2018-09-28 10:49 | XR ---
EXAMINATION TYPE: XR chest 2V DATE OF EXAM: 09/28/2018 COMPARISON: 03/24/2013 HISTORY: 78-year-old female with pain TECHNIQUE: PA and lateral views FINDINGS: Heart borderline in size. Some mild patchy peripheral left basilar density. Diffuse interstitial prom inence appears chronic. Elongation of the thoracic aorta. IMPRESSION: 1. Borderline heart size and chronic parenchymal changes. 2. New patchy peripheral left basilar atelectasis versus early developing infiltrate.
[2018-09-28] MEDS ORDERED: methylPREDNISolone SOD SUCCI 125 MG/2 ML VIAL IM ONE (10:52)
[2018-09-28] MEDS ORDERED: cefTRIAXone 1,000 MG VIAL (IM USE) IM STA (10:52)
[2018-09-28] MEDS ORDERED: AZITHROMYCIN 500 MG TAB PO STA (10:52)
[2018-09-28] MEDS ORDERED: IPRATROPIUM-ALBUTEROL 3 ML NEB INHALATION STA (10:52)
[2018-09-28] MEDS ORDERED: cefTRIAXone IN SWFI 1,000 MG/10 ML SYRINGE IVP STA (11:20)
[2018-09-28] MEDS ORDERED: methylPREDNISolone SOD SUCCI 125 MG/2 ML VIAL IV STA (11:21)
[2018-09-28 11:46] LABS: Basophils % (A) 0 %; Eosinophils % (A) 0 %; HGB 12.1 gm/dL (11.4-16.0); Lymphocytes % (A) 11 %; MCH 29.7 pg (25.0-35.0); MCHC 31.9 g/dL (31.0-37.0); MCV 93.1 fL (80.0-100.0); Mean Platelet Volume 7.5; Monocytes # (A) 0.4 k/uL (0-1.0); Monocytes % (A) 5 %; Neutrophils # (A) 7.5 k/uL (1.3-7.7); Neutrophils % (A) 82 %; Platelet Count 250 k/uL (150-450); RBC 4.08 m/uL (3.80-5.40); RDW 14.7 % (11.5-15.5); WBC 9.2 k/uL (3.8-10.6)
[2018-09-28 11:54] LABS: Albumin 3.6 g/dL (3.5-5.0); Calcium 8.9 mg/dL (8.4-10.2); Potassium 4.4 mmol/L (3.5-5.1); Total Bilirubin 0.9 mg/dL (0.2-1.3); Total Protein 6.9 g/dL (6.3-8.2)
[2018-09-28 12:25] VITALS: BP 143/56; PULSE 52; TEMP 98.3
== END 2018-09-28 12:35 | disposition home or self-care (01) ==
LOC: EC 09:47
DX: J18.9 Pneumonia, unspecified organism (principal); I48.91 Unspecified atrial fibrillation; I10 Essential (primary) hypertension; F41.9 Anxiety disorder, unspecified; Z85.3 Personal history of malignant neoplasm of breast; Z87.891 Personal history of nicotine dependence; Z79.899 Other long term (current) drug therapy; Z88.0 Allergy status to penicillin; Z88.8 Allergy status to other drugs, medicaments and biological substances; Z53.8 Procedure and treatment not carried out for other reasons
CPT/HCPCS: 36415; 94640; 80053; 85025; 87040; 71046; 99285; 96374; 96375; J2930; J0696

== ENCOUNTER → 2018-11-15 | Outpatient (CLI) | payer MEDICARE, BC ==
[2018-11-15 10:52] LABS: Basophils # (A) 0.1 k/uL (0-0.2); Basophils % (A) 1 %; Eosinophils % (A) 1 %; HCT 37.2 % (34.0-46.0); HGB 11.2 gm/dL (11.4-16.0); Hypochromasia Marked; Lymphocytes # (A) 1.1 k/uL (1.0-4.8); Lymphocytes % (A) 33 %; MCH 27.8 pg (25.0-35.0); MCHC 30.1 g/dL (31.0-37.0); MCV 92.3 fL (80.0-100.0); Monocytes # (A) 0.3 k/uL (0-1.0); Monocytes % (A) 8 %; Neutrophils # (A) 1.8 k/uL (1.3-7.7); Neutrophils % (A) 53 %; Platelet Count 229 k/uL (150-450); RBC 4.03 m/uL (3.80-5.40); WBC 3.3 k/uL (3.8-10.6)
[2018-11-15 16:06] LABS: African American GFR (CKD) 55.7 (60.0-200.0); Albumin 4.1 g/dL (3.80-4.90); Albumin/Globulin Ratio 1.78 (1.60-3.17); Anion Gap 8.9 mmol/L (4.00-12.00); BUN/Creat Ratio 23.64 Ratio (12.00-20.00); Calcium 8.7 mg/dL (8.7-10.3); Carbon Dioxide 21.1 mmol/L (21.6-31.8); Globulin 2.3 g/dL (1.6-3.3); Potassium 4.8 mmol/L (3.5-5.5); Total Bilirubin 0.8 mg/dL (0.3-1.2); Total Protein 6.4 g/dL (6.2-8.2)
== END | disposition home or self-care (01) ==
LOC: LABWHC1 09:35
PROVIDERS: ATTEND Internal Medicine Gastroenterology
DX: R94.5 Abnormal results of liver function studies (principal)
CPT/HCPCS: 36415; 80053; 85025

== ENCOUNTER → 2018-12-26 | Outpatient (CLI) | payer MEDICARE, BC ==
[2018-12-26 14:03] LABS: HCT 34.2 % (34.0-46.0); HGB 10.6 gm/dL (11.4-16.0); Hypochromasia Marked; MCH 26.1 pg (25.0-35.0); Mean Platelet Volume 7.6; Platelet Count 244 k/uL (150-450); RBC 4.06 m/uL (3.80-5.40); RDW 15.1 % (11.5-15.5); WBC 3.8 k/uL (3.8-10.6)
[2018-12-26 14:07] LABS: MCV 84.4 fL (80.0-100.0)
[2018-12-26 14:16] LABS: Lymphocytes # (M) 0.95 k/uL (1.0-4.8); Monocytes # (M) 0.49 k/uL (0-1.0); Neutrophils % (M) 62 %; Nucleated Red Blood Cells 0 /100 WBC (0-0); Total Cells Counted 100
== END | disposition home or self-care (01) ==
LOC: LABWHC1 12:42
PROVIDERS: ATTEND Nurse Practitioner
DX: K92.1 Melena (principal)
CPT/HCPCS: 36415; 85025

== ENCOUNTER 2018-12-28 07:54 | Day surgery (SDC) | payer MEDICARE, BC ==
[2018-12-27 09:00] VITALS: BMI 25.8
[~2018-12-28 07:54] MED LIST: LACTATED RINGERS 1,000 ML IV SCH
[2018-12-28] MEDS ORDERED: LIDOCAINE 1% 20 ML VIAL (10MG/ML) FOR IV START INTRADERMA ONE (08:35)
[2018-12-28] MEDS ORDERED: LIDOCAINE 1% INJ 10MG/ML (20 ML MDV) ONE (08:56)
[2018-12-28] MEDS ORDERED: PROPOFOL 10 MG/ML 20 ML VIAL IV ONE (08:56)
--- NOTE | 2018-12-28 09:21 | P.PCN ---
Date of Procedure: 12/28/18 Procedure(s) Performed: BRIEF HISTORY: Patient is a 78-year-old, pleasant, white female, scheduled for an upper endoscopy as a part of evaluation of anemia and melena for the last 1 week duration. She has A. fib and has been on Xarelto which has been on hold for 2 days. Last blood was 10.3 g/dL. His and scheduled for an upper endoscopy to evaluate further. PROCEDURE PERFORMED: Esophagogastroduodenoscopy with biopsy and argon plasma coagulation. PREOPERATIVE DIAGNOSIS: Melena/anemia of 1 day duration. IV sedation per anesthesia. PROCEDURE: After informed consent was obtained, the patient was brought into the endoscopy unit. IV sedation was administered by Anesthesia under continuous monitoring. Initially the Olympus GIF-140 video endoscope was inserted into the mouth. Esophagus intubated without any difficulty. It was gradually advanced into the stomach and duodenum and carefully examined. The bulb and the second part of the duodenum appeared normal. The scope at this time was withdrawn to the stomach, adequately insufflated with air, and upon careful examination, mucosa of the antrum, body, and has diffuse gastritis and several small areas with some old blood noted , though there was no active bleeding. Using argon plasma coagulation the small erythematous spots were all coagulated. Biopsies were also done from the antrum to rule out H. pylori infection. The cardia and the fundus appeared normal. The scope was then withdrawn into the esophagus. The GE junction was located at 39 cm from the incisors. The esophagus appeared normal. There were no erosions or ulcerations seen and the patient tolerated the procedure well. IMPRESSION: 1. Diffuse gastritis involving the body and antrum of the stomach with several small erythematous areas with old blood status post argon plasma coagulation. 2. No evidence of esophagitis or peptic ulcer disease. RECOMMENDATIONS: The findings of this examination were discussed with the patient as well as a family. She'll be started on Prilosec 20 mg daily. She will resume Xarelto today. She will follow with the biopsy results and will be seen in office in 3-4 weeks..
[2018-12-28 09:23] VITALS: TEMP 98.3
[2018-12-28 09:37] VITALS: BP 178/78; PULSE 78; RESP 18
== END 2018-12-28 09:54 | disposition home or self-care (01) ==
LOC: ORWHC2ENDO 07:54
PROVIDERS: ATTEND Internal Medicine Gastroenterology
DX: D64.9 Anemia, unspecified (principal); K92.1 Melena; K29.50 Unspecified chronic gastritis without bleeding; I10 Essential (primary) hypertension; I48.91 Unspecified atrial fibrillation; G43.B0 Ophthalmoplegic migraine, not intractable; K52.9 Noninfective gastroenteritis and colitis, unspecified; Z87.891 Personal history of nicotine dependence; Z87.01 Personal history of pneumonia (recurrent); Z85.3 Personal history of malignant neoplasm of breast; Z79.01 Long term (current) use of anticoagulants; Z79.899 Other long term (current) drug therapy; Z88.0 Allergy status to penicillin; Z88.8 Allergy status to other drugs, medicaments and biological substances; Z90.710 Acquired absence of both cervix and uterus; Z90.89 Acquired absence of other organs; Z90.49 Acquired absence of other specified parts of digestive tract; Z98.890 Other specified postprocedural states
CPT/HCPCS: 88305; 43239; 43255; J2001; J2704

== ENCOUNTER → 2019-02-11 | Outpatient (CLI) | payer MEDICARE, BC ==
[2019-02-11 14:22] LABS: Anisocytosis Slight; HCT 32.1 % (34.0-46.0); HGB 9.9 gm/dL (11.4-16.0); Hypochromasia Marked; MCHC 30.7 g/dL (31.0-37.0); MCV 84.5 fL (80.0-100.0); Mean Platelet Volume 7.9; Platelet Count 266 k/uL (150-450); RBC 3.79 m/uL (3.80-5.40); RDW 17.8 % (11.5-15.5); WBC 4.1 k/uL (3.8-10.6)
[2019-02-11 15:22] LABS: Basophils # (M) 0.08 k/uL (0-0.2); Lymphocytes # (M) 1.31 k/uL (1.0-4.8); Monocytes # (M) 0.25 k/uL (0-1.0); Neutrophils % (M) 60 %; Nucleated Red Blood Cells 0 /100 WBC (0-0); Total Cells Counted 100
[2019-02-11 21:28] LABS: % Iron Saturation 59.38 (12.00-45.00)
[2019-02-11 21:39] LABS: Ferritin 15.8 ng/mL (10.0-291.0)
== END | disposition home or self-care (01) ==
LOC: LABWHC1 12:36
PROVIDERS: ATTEND Internal Medicine Gastroenterology
DX: K92.1 Melena (principal)
CPT/HCPCS: 36415; 82728; 83540; 83550; 85025

== ENCOUNTER → 2019-02-25 | Outpatient (CLI) | payer MEDICARE, BC ==
[2019-02-25 13:00] LABS: Anisocytosis Slight; HCT 35.4 % (34.0-46.0); Hypochromasia Marked; MCH 26.8 pg (25.0-35.0); MCHC 31.1 g/dL (31.0-37.0); MCV 86.4 fL (80.0-100.0); Mean Platelet Volume 7.1; Platelet Count 258 k/uL (150-450); RDW 19.4 % (11.5-15.5); WBC 4.5 k/uL (3.8-10.6)
[2019-02-25 13:20] LABS: Lymphocytes # (M) 0.86 k/uL (1.0-4.8); Monocytes # (M) 0.32 k/uL (0-1.0); Neutrophils # (M) 3.33 k/uL (1.3-7.7); Neutrophils % (M) 74 %; Nucleated Red Blood Cells 0 /100 WBC (0-0); Total Cells Counted 100
[2019-02-25 13:22] LABS: Poikilocytosis (M) Present
[2019-02-25 19:11] LABS: % Iron Saturation 17.15 (12.00-45.00)
== END | disposition home or self-care (01) ==
LOC: LABWHC1 11:41
PROVIDERS: ATTEND Internal Medicine Gastroenterology
DX: K92.1 Melena (principal)
CPT/HCPCS: 36415; 82728; 83540; 83550; 85025

== ENCOUNTER → 2019-03-05 | Day surgery (SDC) | payer MEDICARE, BC ==
[2019-02-27 11:25] VITALS: BMI 25.1
[~2019-03-05] MED LIST changes: -LACTATED RINGERS 1,000 ML IV SCH; +SIMETHICONE 40 MG/0.6 ML DROPS 2,000 MG/30 ML BOTTLE PO ONE
== END ==
LOC: ORWHC2ENDO 07:03
PROVIDERS: ATTEND Internal Medicine Gastroenterology
DX: D50.0 Iron deficiency anemia secondary to blood loss (chronic) (principal); K29.70 Gastritis, unspecified, without bleeding; K52.9 Noninfective gastroenteritis and colitis, unspecified; K57.30 Diverticulosis of large intestine without perforation or abscess without bleeding; I48.91 Unspecified atrial fibrillation; Z79.01 Long term (current) use of anticoagulants; Z88.8 Allergy status to other drugs, medicaments and biological substances; Z88.0 Allergy status to penicillin
CPT/HCPCS: 91110

== ENCOUNTER → 2019-04-25 | Outpatient (CLI) | payer MEDICARE, BC ==
[2019-04-25 11:57] LABS: Anisocytosis Slight; Basophils % (A) 1 %; Eosinophils % (A) 0 %; HCT 39.5 % (34.0-46.0); HGB 12.2 gm/dL (11.4-16.0); Hypochromasia Moderate; Lymphocytes # (A) 1.1 k/uL (1.0-4.8); Lymphocytes % (A) 25 %; MCH 27.6 pg (25.0-35.0); MCHC 30.9 g/dL (31.0-37.0); MCV 89.3 fL (80.0-100.0); Mean Platelet Volume 8.9; Monocytes # (A) 0.3 k/uL (0-1.0); Monocytes % (A) 6 %; Neutrophils # (A) 2.9 k/uL (1.3-7.7); Neutrophils % (A) 64 %; Platelet Count 242 k/uL (150-450); RBC 4.42 m/uL (3.80-5.40); RDW 18.7 % (11.5-15.5); WBC 4.5 k/uL (3.8-10.6)
[2019-04-25 16:31] LABS: % Iron Saturation 4.03 (12.00-45.00); Ferritin 10.4 ng/mL (10.0-291.0)
== END | disposition home or self-care (01) ==
LOC: LABWHC1 10:57
PROVIDERS: ATTEND Internal Medicine Gastroenterology
DX: K92.1 Melena (principal)
CPT/HCPCS: 36415; 82728; 83540; 83550; 85025

== ENCOUNTER → 2019-06-20 | Day surgery (SDC) | payer MEDICARE, BC ==
[2019-06-19 09:51] VITALS: BMI 25.1
[~2019-06-20] MED LIST changes: +ATROPINE SULFATE 0.1 MG/ML 10ML SYRINGE ONE; +GLYCOPYRROLATE 0.2 MG/ML 2 ML VIAL ONE; +LACTATED RINGERS 1,000 ML IV SCH; +LIDOCAINE 1% (10MG/ML) FOR IV START INTRADERMA PRN; +LIDOCAINE 1% INJ 10MG/ML (20 ML MDV) ONE; +PROPOFOL 10 MG/ML 20 ML VIAL IV ONE; -SIMETHICONE 40 MG/0.6 ML DROPS 2,000 MG/30 ML BOTTLE PO ONE
[2019-06-20 09:53] VITALS: TEMP 98.4
--- NOTE | 2019-06-20 11:00 | P.PCN ---
Date of Procedure: 06/20/19 Procedure(s) Performed: BRIEF HISTORY: Patient is a 78-year-old pleasant female scheduled for an elective colonoscopy as a part of abnormal CT colonography that was done last week. It revealed a 3.5 cm x 3 cm broad-based polyp in the ascending colon. Patient has been on Xarelto for A. fib which is on hold for the last 2 days. PROCEDURE PERFORMED: Colonoscopy with submucosal injection, snare polypectomy, Endo Clip placement and tattooing with Unique ink. PREOPERATIVE DIAGNOSIS: Abnormal CT colonography that showed a large ascending colon polyp. IV sedation per Anesthesia. PROCEDURE: After informed consent was obtained, the patient, was brought into the endoscopy unit. IV sedation was administered by Anesthesia under continuous monitoring. Digital rectal examination was normal. Initially the Olympus CF-160 flexible video colonoscope was then inserted in the rectum, gradually advanced into the cecum without any difficulty. Careful examination was performed as the scope was gradually being withdrawn. Ileocecal valve and the appendiceal orifice were visualized and appeared normal. Prep was excellent. In the base of the cecum there were 2 nonbleeding arterial venous malformations measuring about 5 mm and 1 cm in size seen and no endoscopic intervention done. In the ascending colon there was a 4 x 4 centimeters broad-based polyp with central depression noted. It appeared noncancerous and hence I decided to proceed with polypectomy. Submucosal injection was performed with orise, and approximately 7 mL was injected. Following this snare polypectomy was performed in a piecemeal fashion and almost 75% the polyp was removed. At this time endoclips were placed at the site of polypectomy to prevent post-polypectomy bleed. Tattooing was performed using Unique ink in the proximal and distal margin of the polyp. The transverse colon, descending colon, sigmoid colon, and rectum appeared normal. Scattered sigmoidal diverticulosis seen. Retroflexion was performed in the rectum and no lesions were seen. The patient tolerated the procedure well. IMPRESSION: 1. A 4 x 4 cm broad based polyp involving the mid ascending colon status post submucosal injection followed by snare polypectomy, Endo Clip placement and tattooing with Unique ink (75% the polyp removed) 2. 2 nonbleeding arterial venous malformation is noted in the base of the cecum. 3. Scattered sigmoid diverticulosis. RECOMMENDATIONS: Findings of this examination were discussed with the patient as well as her family. She'll be seen in office next week to discuss the biopsy results and will plan a repeat colonoscopy versus surgical intervention.
[2019-06-20 11:13] VITALS: BP 166/74; PULSE 49; RESP 20
== END ==
LOC: ORWHC2ENDO 09:26
PROVIDERS: ATTEND Internal Medicine Gastroenterology
DX: D12.2 Benign neoplasm of ascending colon (principal); Q27.33 Arteriovenous malformation of digestive system vessel; K57.30 Diverticulosis of large intestine without perforation or abscess without bleeding; I48.91 Unspecified atrial fibrillation; I10 Essential (primary) hypertension; E78.5 Hyperlipidemia, unspecified; K21.9 Gastro-esophageal reflux disease without esophagitis; Z88.0 Allergy status to penicillin; Z79.01 Long term (current) use of anticoagulants; Z79.899 Other long term (current) drug therapy; Z79.811 Long term (current) use of aromatase inhibitors; Z85.3 Personal history of malignant neoplasm of breast; Z98.890 Other specified postprocedural states; Z88.8 Allergy status to other drugs, medicaments and biological substances; Z87.891 Personal history of nicotine dependence
CPT/HCPCS: 88305; 45385; 45381; J2001; J0461; J2704; 45382

== ENCOUNTER → 2019-11-28 | Outpatient (CLI) | payer MEDICARE, BC ==
--- NOTE | 2019-11-28 15:20 | XR ---
EXAMINATION TYPE: XR sacrum coccyx DATE OF EXAM: 11/28/2019 COMPARISON: NONE HISTORY: 79-year-old female sacrococcygeal disorders, coccyx pain, M53.3 TECHNIQUE: 3 views FINDINGS: SI joints appear symmetric and intact. There may be some mild degenerative subarticular sclerosis on the right. Suboptimal delineation to the articular side of the sacrum. No displaced or angulated sacr al or coccygeal fracture seen. IMPRESSION: There may be mild degenerative change at the right SI joint. No displaced or angulated temporal bone fracture seen.
== END | disposition home or self-care (01) ==
LOC: RADXRMAIN 14:37
PROVIDERS: ATTEND Family Medicine
DX: M53.3 Sacrococcygeal disorders, not elsewhere classified (principal)
CPT/HCPCS: 72220

== ENCOUNTER → 2020-05-06 | Outpatient (CLI) | payer MEDICARE, BC | END | disposition home or self-care (01) | LOC: LABWHC1 16:04 | PROVIDERS: ATTEND Internal Medicine Cardiovascular Disease | DX: I48.0 Paroxysmal atrial fibrillation (principal) | CPT/HCPCS: 36415; 80181 ==

== ENCOUNTER 2020-08-20 08:51 | Emergency (ER) | payer MEDICARE, BC ==
--- NOTE | 2020-08-20 09:20 | ED ---
General Adult HPI - General Chief complaint: GI Bleed Stated complaint: Rectal bleeding Time Seen by Provider: 08/20/20 09:01 Source: patient Mode of arrival: wheelchair Limitations: no limitations - History of Present Illness Initial comments: Dictation was produced using Spot[employer] dictation software. please excuse any grammatical, word or spelling errors. This patient was cared for during a federal and state declared state of emergency secondary to Covid 19 Chief Complaint: 79-year-old female past medical history of A. fib, take ant icoagulation, clonic polyps presents emergency department for GI bleeding History of Present Illness: 79-year-old female presents to the emergency department for GI bleeding. Patient has since history of large colonic polyps. She is known to our surgeon Dr. Maynor Whitten and one of our GI doctors Dr. Treviño. Back in June patient had a colonoscopy showed large mucosal polyp. Patient was referred to [facility] for clonic tonic rollover due to availability of specialized instrumentation. 3 days ago patient had this colonoscopy with 2 polyps removed and a large mucosal polyp removed. Patient is doing fine post- procedurally until this morning she had a large episode of profuse GI bleeding. Patient is scared. She denies any nausea vomiting. She has no abdominal pain. Denies any fever, chills or night sweats. The ROS documented in this emergency department record has been reviewed and confirmed by me. Those systems with pertinent positive or negative responses have been documented in the HPI. All other systems are other negative and/or noncontributory. PHYSICAL EXAM: General Impression: Alert and oriented x3, not in acute distress HEENT: Normocephalic atraumatic, extra-ocular movements intact, pupils equal and reactive to light bilaterally, mucous membranes moist. Cardiovascular: Heart regular rate and rhythm Chest: Able to complete full sentences, no retractions, no tachypnea Abdomen: abdomen soft, non-tender, non-distended, no organomegaly Musculoskeletal: Pulses present and equal in all extremities, no peripheral edema Motor: no focal deficits noted Neurological: CN II-XII grossly intact, no focal motor or sensory deficits noted Skin: Intact with no visualized rashes Psych: Normal affect and mood ED course: 79-year-old male presents to the emergency department for profuse GI bleeding status post mucosal resection polypectomy done at [facility]. Triage Vital signs upon arrival shows blood pressure 223/89, worse vital signs within acceptable limits. Dr. Levine was contacted and sent down his nurse practitioner to evaluate the patient at bedside.. They did evaluate colonoscopy report that patient has at bedside. Their recommendation was transferred back to [facility] under the care of GI doctor , Dr. Santos. Dr. Levine explains that there are limitations to the instrumentation capabilities. Repeat blood pressure is still hypertensive. Patient started on hydralazine for BP control. Case discussed with Dr. Guadarrama at [facility] who is willing to accept patients care. This is blood pressure is improved after labetalol admi nistration. Patient given Protonix. Patient not actively bleeding at this time and has stable vital signs. No indication for Xarelto reversal or aggressive blood transfusion. Patient will be transferred for direct admission to [facility]. - Related Data Home Medications Medication Instructions Recorded Confirmed Flecainide [Tambocor] 100 mg PO BID 12/11/13 06/19/19 Anastrozole [Arimidex] 1 mg PO DAILY 07/01/16 06/19/19 Cholecalciferol [Vitamin D3] 5,000 unit PO DAILY 07/01/16 06/19/19 Mesalamine [Lialda] 4 tab PO DAILY 12/27/18 06/19/19 Rivaroxaban [Xarelto] 20 mg PO DAILY 12/27/18 06/19/19 Sertraline [Zoloft] 50 mg PO HS 12/27/18 06/19/19 Vitamin C/Biotin [Hair, Skin and 1 each PO DAILY 12/27/18 06/19/19 Nails] atenoloL [Tenormin] 50 mg PO QAM 12/27/18 06/19/19 hydrALAZINE HCL [Apresoline] 25 mg PO BID 12/27/18 06/19/19 lisinopriL 40 mg PO QAM 12/27/18 06/19/19 Ferrous Sulfate [Feosol] 325 mg PO DAILY 02/27/19 06/19/19 Omeprazole 20 mg PO QAM 02/27/19 06/19/19 Allergies Allergy/AdvReac Type Severity Reaction Status Date / Time Penicillins AdvReac Red face Verified 08/20/20 09:00 Oral steroids AdvReac Red face Uncoded 08/20/20 09:00 Review of Systems ROS Statement: Those systems with pertinent positive or pertinent negative responses have been documented in the HPI. ROS Other: All systems not noted in ROS Statement are negative. Past Medical History Past Medical History: Atrial Fibrillation, Cancer, Hypertension Additional Past Medical History / Comment(s): hx rt breast CA-2017-no radiation or chemo. colitis. hx of ocular migraine History of Any Multi-Drug Resistant Organisms: None Reported Past Surgical History: Adenoidectomy, Appendectomy, Section, Hysterectomy, Tonsillectomy Additional Past Surgical History / Comment(s): right lumpectomy. left ovary removed 1967. Past Anesthesia/Blood Transfusion Reactions: No Reported Reaction Past Psychological History: Anxiety Smoking Status: Never smoker Past Alcohol Use History: None Reported Past Drug Use History: None Reported - Past Family History Mother Family Medical History: Cancer General Exam Limitations: no limitations Course Vital Signs 08/20/20 08/20/20 08/20/20 08:53 10:26 11:20 Temperature 97.8 F 98 F Pulse Rate 60 57 L 59 L Respiratory 18 18 22 Rate Blood Pressure 223/89 238/100 207/79 O2 Sat by Pulse 96 98 98 Oximetry 08/20/20 11:33 Temperature Pulse Rate Respiratory Rate Blood Pressure 198/85 O2 Sat by Pulse Oximetry Medical Decision Making - Lab Data Result diagrams: 08/20/20 09:23 08/20/20 09:23 Lab Results 08/20/20 08/20/20 08/20/20 Range/Units 09:23 09:23 09:23 WBC 5.4 (3.8-10.6) k/uL RBC 4.45 (3.80-5.40) m/uL Hgb 14.2 (11.4-16.0) gm/dL Hct 44.8 (34.0-46.0) % MCV 100.5 H (80.0-100.0) fL MCH 32.0 (25.0-35.0) pg MCHC 31.8 (31.0-37.0) g/dL RDW 13.9 (11.5-15.5) % Plt Count 171 (150-450) k/uL MPV 9.1 Neutrophils % 67 % Lymphocytes % 22 % Monocytes % 5 % Eosinophils % 3 % Basophils % 1 % Neutrophils # 3.6 (1.3-7.7) k/uL Lymphocytes # 1.2 (1.0-4.8) k/uL Monocytes # 0.3 (0-1.0) k/uL Eosinophils # 0.2 (0-0.7) k/uL Basophils # 0.0 (0-0.2) k/uL Macrocytosis Slight PT 10.4 (9.0-12.0) sec INR 1.0 (<1.2) APTT 27.2 (22.0-30.0) sec Sodium 140 (137-145) mmol/L Potassium 4.4 (3.5-5.1) mmol/L Chloride 109 H (98-107) mmol/L Carbon Dioxide 23 (22-30) mmol/L Anion Gap 8 mmol/L BUN 27 H (7-17) mg/dL Creatinine 1.07 H (0.52-1.04) mg/dL Est GFR (CKD-EPI)AfAm 57 (>60 ml/min/1.73 sqM) Est GFR (CKD-EPI)NonAf 50 (>60 ml/min/1.73 sqM) Glucose 105 H (74-99) mg/dL Calcium 8.7 (8.4-10.2) mg/dL Coronavirus (PCR) (Not Detectd) Blood Type Blood Type Recheck Bld Type Recheck Status Antibody Screen Spec Expiration Date 08/20/20 08/20/20 Range/Units 09:53 10:30 WBC (3.8-10.6) k/uL RBC (3.80-5.40) m/uL Hgb (11.4-16.0) gm/dL Hct (34.0-46.0) % MCV (80.0-100.0) fL MCH (25.0-35.0) pg MCHC (31.0-37.0) g/dL RDW (11.5-15.5) % Plt Count (150-450) k/uL MPV Neutrophils % % Lymphocytes % % Monocytes % % Eosinophils % % Basophils % % Neutrophils # (1.3-7.7) k/uL Lymphocytes # (1.0-4.8) k/uL Monocytes # (0-1.0) k/uL Eosinophils # (0-0.7) k/uL Basophils # (0-0.2) k/uL Macrocytosis PT (9.0-12.0) sec INR (<1.2) APTT (22.0-30.0) sec Sodium (137-145) mmol/L Potassium (3.5-5.1) mmol/L Chloride (98-107) mmol/L Carbon Dioxide (22-30) mmol/L Anion Gap mmol/L BUN (7-17) mg/dL Creatinine (0.52-1.04) mg/dL Est GFR (CKD-EPI)AfAm (>60 ml/min/1.73 sqM) Est GFR (CKD-EPI)NonAf (>60 ml/min/1.73 sqM) Glucose (74-99) mg/dL Calcium (8.4-10.2) mg/dL Coronavirus (PCR) Not Detected (Not Detectd) Blood Type O Positive Blood Type Recheck No Previous Record Bld Type Recheck Status CABO Indicated Antibody Screen NEGATIVE Spec Expiration Date 08/23/2020 - 235 Critical Care Time Critical Care Time: Yes Total Critical Care Time: 33 Disposition Clinical Impression: GI bleed Disposition: OTHER INSTITUTION NOT DEFINED Condition: Fair Referrals: Judith Loo MD [Primary Care Provider] - 1-2 days - Out of Hospital Transfer - Req. Specs Out of Hospital Transfer - Requested Specifics: [facility])
[2020-08-20 09:38] LABS: Basophils % (A) 1 %; Eosinophils # (A) 0.2 k/uL (0-0.7); Eosinophils % (A) 3 %; HCT 44.8 % (34.0-46.0); HGB 14.2 gm/dL (11.4-16.0); Lymphocytes # (A) 1.2 k/uL (1.0-4.8); Lymphocytes % (A) 22 %; MCHC 31.8 g/dL (31.0-37.0); MCV 100.5 fL (80.0-100.0); Macrocytosis Slight; Mean Platelet Volume 9.1; Monocytes # (A) 0.3 k/uL (0-1.0); Monocytes % (A) 5 %; Neutrophils # (A) 3.6 k/uL (1.3-7.7); Neutrophils % (A) 67 %; Platelet Count 171 k/uL (150-450); RBC 4.45 m/uL (3.80-5.40); RDW 13.9 % (11.5-15.5); WBC 5.4 k/uL (3.8-10.6)
[2020-08-20 09:46] LABS: Partial Thromboplastin Time 27.2 sec (22.0-30.0); Prothrombin Time 10.4 sec (9.0-12.0)
[2020-08-20 09:53] LABS: Calcium 8.7 mg/dL (8.4-10.2); Potassium 4.4 mmol/L (3.5-5.1)
[2020-08-20] MEDS ORDERED: LABETALOL 5 MG/ML VIAL MDV IVP STA (10:27)
[2020-08-20] MEDS ORDERED: hydrALAZINE HCL 20 MG/ML 1 ML VIAL IVP STA ×3 (10:29→11:56)
[2020-08-20] MEDS ORDERED: PANTOPRAZOLE 40 MG/10 ML VIAL IVP STA (11:39)
[2020-08-20] MEDS ORDERED: LORazepam 2 MG/ML INJ IV STA (13:08)
[2020-08-20 14:13] LABS: HCT 39.3 % (34.0-46.0); HGB 13.7 gm/dL (11.4-16.0); MCH 34.6 pg (25.0-35.0); MCHC 34.7 g/dL (31.0-37.0); MCV 99.7 fL (80.0-100.0); Mean Platelet Volume 8.7; Platelet Count 145 k/uL (150-450); RBC 3.95 m/uL (3.80-5.40); RDW 13.3 % (11.5-15.5); WBC 4.3 k/uL (3.8-10.6)
[2020-08-20 16:04] VITALS: RESP 18; TEMP 97.7
[2020-08-20 17:01] VITALS: BP 178/79; PULSE 65
== END 2020-08-20 18:58 | disposition other institution (70) ==
LOC: EC 08:51
DX: K92.2 Gastrointestinal hemorrhage, unspecified (principal); I48.91 Unspecified atrial fibrillation; I10 Essential (primary) hypertension; G43.909 Migraine, unspecified, not intractable, without status migrainosus; F41.9 Anxiety disorder, unspecified; Z20.822 Contact with and (suspected) exposure to COVID-19; Z87.19 Personal history of other diseases of the digestive system; Z85.3 Personal history of malignant neoplasm of breast; Z79.01 Long term (current) use of anticoagulants; Z88.0 Allergy status to penicillin; Z90.721 Acquired absence of ovaries, unilateral
CPT/HCPCS: 99291 ×2; 96374 ×2; 96375 ×3; 96376 ×2; 36415; 86900; 86901; 80048; 85025; 85027; 85610; 85730; 86850; 87635; J2060; J0360; C9113

== ENCOUNTER 2020-12-23 08:18 | Inpatient (IN) | payer MEDICARE, BC ==
[2020-12-23] MEDS ORDERED: SODIUM CHLORIDE 0.9% 1,000 ML IV STA (08:41)
[2020-12-23] MEDS ORDERED: MORPHINE SULFATE 4 MG/ML SYRINGE IV STA (08:41)
[2020-12-23] MEDS ORDERED: ONDANSETRON 4 MG/2 ML VIAL IVP STA (08:41)
--- NOTE | 2020-12-23 08:52 | ED ---
General Adult HPI - General Chief complaint: Abdominal Pain Stated complaint: Abd pain Time Seen by Provider: 12/23/20 08:30 Source: patient, family, RN notes reviewed Mode of arrival: ambulatory Limitations: no limitations - History of Present Illness Initial comments: 80-year-old female with atrial fibrillation, hypertension, colitis, diverticulosis presents to the emergency room for abdominal pain. Patient states yesterday she started to have a lower abdominal pain. Patient states it starts on the left and radiates to the right. She admits to nausea but denies vomiting. Patient denies diarrhea but does state she has had some mucousy stool with streaks of blood. Patient does take Xarelto for afib. Patient states she has had several colonoscopies within the past few years for removal of a polyp. Was told she has diverticulosis. She denies fevers. Patient has no other complaints at this time including shortness of breath, chest pain, vomiting, headache, or visual changes. - Related Data Home Medications Medication Instructions Recorded Confirmed Flecainide [Tambocor] 100 mg PO BID 12/11/13 06/19/19 Anastrozole [Arimidex] 1 mg PO DAILY 07/01/16 06/19/19 Cholecalciferol [Vitamin D3] 5,000 unit PO DAILY 07/01/16 06/19/19 Mesalamine [Lialda] 4 tab PO DAILY 12/27/18 06/19/19 Rivaroxaban [Xarelto] 20 mg PO DAILY 12/27/18 06/19/19 Sertraline [Zoloft] 50 mg PO HS 12/27/18 06/19/19 Vitamin C/Biotin [Hair, Skin and 1 each PO DAILY 12/27/18 06/19/19 Nails] atenoloL [Tenormin] 50 mg PO QAM 12/27/18 06/19/19 hydrALAZINE HCL [Apresoline] 25 mg PO BID 12/27/18 06/19/19 lisinopriL 40 mg PO QAM 12/27/18 06/19/19 Ferrous Sulfate [Feosol] 325 mg PO DAILY 02/27/19 06/19/19 Omeprazole 20 mg PO QAM 02/27/19 06/19/19 Allergies Allergy/AdvReac Type Severity Reaction Status Date / Time Penicillins AdvReac Red face Verified 12/23/20 08:24 Oral steroids AdvReac Red face Uncoded 08/20/20 09:00 Review of Systems ROS Statement: Those systems with pertinent positive or pertinent negative responses have been documented in the HPI. ROS Other: All systems not noted in ROS Statement are negative. Past Medical History Past Medical History: Atrial Fibrillation, Cancer, Hypertension Additional Past Medical History / Comment(s): hx rt breast CA-2017-no radiation or chemo. colitis. hx of ocular migraine History of Any Multi-Drug Resistant Organisms: None Reported Past Surgical History: Adenoidectomy, Appendectomy, Section, Hysterectomy, Tonsillectomy Additional Past Surgical History / Comment(s): right lumpectomy. left ovary removed 1967. colon polyp removal Past Anesthesia/Blood Transfusion Reactions: No Reported Reaction Past Psychological History: Anxiety Smoking Status: Never smoker Past Alcohol Use History: None Reported Past Drug Use History: None Reported - Past Family History Mother Family Medical History: Cancer General Exam Limitations: no limitations General appearance: alert, in no apparent distress Head exam: Present: atraumatic Eye exam: Present: normal appearance, PERRL, EOMI. Absent: scleral icterus, conjunctival injection ENT exam: Present: normal exam, mucous membranes moist Neck exam: Present: normal inspection, full ROM. Absent: tenderness Respiratory exam: Present: normal lung sounds bilaterally. Absent: respiratory distress, wheezes Cardiovascular Exam: Present: regular rate, normal rhythm, normal heart sounds GI/Abdominal exam: Present: soft, tenderness (Mild left lower quadrant abdominal tenderness and suprapubic tenderness), normal bowel sounds. Absent: distended, guarding, rebound Rectal exam: Present: normal inspection, normal rectal tone, other (Mitzi PIÑA at bedside) Neurological exam: Present: alert Course Vital Signs 12/23/20 12/23/20 08:24 10:25 Temperature 98 F 101.3 F H Pulse Rate 60 50 L Respiratory 18 19 Rate Blood Pressure 170/72 171/66 O2 Sat by Pulse 94 L 91 L Oximetry EKG Findings - EKG Comments: EKG Findings:: Junctional rhythm, ventricular rate 47, QRS duration 106, QTC 449 Medical Decision Making - Medical Decision Making Patient presents with initially normal vitals. She did end up developing a fever of 101.3 with a bradycardic pulse rate of 50. She does have a history of bradycardia. EKG obtained showed a junctional rhythm. Laboratory vision did show mild acidosis. CMP is unremarkable. Urinalysis is unremarkable. Coronavirus is not detected. CT abdomen and pelvis shows findings consistent with severe acute diverticulitis and enhancing flagmen noted in the left ovary region. Possible fistula. Cannot exclude contained perforation. Suspect positive occult blood is related to diverticulitis. Case was discussed with Dr. Odom. Requests medicine admission. Updated the patient is on blood thinners, does not feel this is surgical. Admission accepted by Dr. Ji. Patient was started on Levaquin and Flagyl given he has a history of penicillin ALLERGY of skin turning red. Sepsis diagnosis made at 1037, blood cultures and antibiotics given within 3 hours of diagnosis. Lactic acid is normal. Patient does not require 30 mL's per kilo of fluid. - Lab Data Result diagrams: 12/23/20 08:55 12/23/20 08:55 Lab Results 12/23/20 12/23/20 12/23/20 Range/Units 08:55 08:55 08:55 WBC 11.4 H (3.8-10.6) k/uL RBC 4.54 (3.80-5.40) m/uL Hgb 14.0 (11.4-16.0) gm/dL Hct 42.3 (34.0-46.0) % MCV 93.3 (80.0-100.0) fL MCH 30.9 (25.0-35.0) pg MCHC 33.1 (31.0-37.0) g/dL RDW 15.4 (11.5-15.5) % Plt Count 234 (150-450) k/uL MPV 9.6 Neutrophils % 89 % Lymphocytes % 5 % Monocytes % 4 % Eosinophils % 1 % Basophils % 0 % Neutrophils # 10.2 H (1.3-7.7) k/uL Lymphocytes # 0.6 L (1.0-4.8) k/uL Monocytes # 0.5 (0-1.0) k/uL Eosinophils # 0.1 (0-0.7) k/uL Basophils # 0.0 (0-0.2) k/uL Sodium 136 L (137-145) mmol/L Potassium 4.0 (3.5-5.1) mmol/L Chloride 103 (98-107) mmol/L Carbon Dioxide 22 (22-30) mmol/L Anion Gap 11 mmol/L BUN 20 H (7-17) mg/dL Creatinine 0.88 (0.52-1.04) mg/dL Est GFR (CKD-EPI)AfAm 72 (>60 ml/min/1.73 sqM) Est GFR (CKD-EPI)NonAf 63 (>60 ml/min/1.73 sqM) Glucose 146 H (74-99) mg/dL Plasma Lactic Acid Mitch (0.7-2.0) mmol/L Calcium 9.0 (8.4-10.2) mg/dL Total Bilirubin 2.1 H (0.2-1.3) mg/dL AST 24 (14-36) U/L ALT 17 (4-34) U/L Alkaline Phosphatase 130 H (38-126) U/L Total Protein 6.7 (6.3-8.2) g/dL Albumin 3.7 (3.5-5.0) g/dL Amylase 47 (30-110) U/L Lipase 69 (23-300) U/L Urine Color Yellow Urine Appearance Clear (Clear) Urine pH 5.5 (5.0-8.0) Ur Specific Snyder 1.050 H (1.001-1.035) Urine Protein 1+ H (Negative) Urine Glucose (UA) Negative (Negative) Urine Ketones Negative (Negative) Urine Blood Negative (Negative) Urine Nitrite Negative (Negative) Urine Bilirubin Negative (Negative) Urine Urobilinogen <2.0 (<2.0) mg/dL Ur Leukocyte Esterase Negative (Negative) Urine RBC 1 (0-5) /hpf Urine WBC <1 (0-5) /hpf Urine Mucus Rare H (None) /hpf Stool Occult Blood (Negative) Coronavirus (PCR) (Not Detectd) 12/23/20 12/23/20 12/23/20 Range/Units 08:55 08:55 10:27 WBC (3.8-10.6) k/uL RBC (3.80-5.40) m/uL Hgb (11.4-16.0) gm/dL Hct (34.0-46.0) % MCV (80.0-100.0) fL MCH (25.0-35.0) pg MCHC (31.0-37.0) g/dL RDW (11.5-15.5) % Plt Count (150-450) k/uL MPV Neutrophils % % Lymphocytes % % Monocytes % % Eosinophils % % Basophils % % Neutrophils # (1.3-7.7) k/uL Lymphocytes # (1.0-4.8) k/uL Monocytes # (0-1.0) k/uL Eosinophils # (0-0.7) k/uL Basophils # (0-0.2) k/uL Sodium (137-145) mmol/L Potassium (3.5-5.1) mmol/L Chloride (98-107) mmol/L Carbon Dioxide (22-30) mmol/L Anion Gap mmol/L BUN (7-17) mg/dL Creatinine (0.52-1.04) mg/dL Est GFR (CKD-EPI)AfAm (>60 ml/min/1.73 sqM) Est GFR (CKD-EPI)NonAf (>60 ml/min/1.73 sqM) Glucose (74-99) mg/dL Plasma Lactic Acid Mitch 1.0 (0.7-2.0) mmol/L Calcium (8.4-10.2) mg/dL Total Bilirubin (0.2-1.3) mg/dL AST (14-36) U/L ALT (4-34) U/L Alkaline Phosphatase (38-126) U/L Total Protein (6.3-8.2) g/dL Albumin (3.5-5.0) g/dL Amylase (30-110) U/L Lipase (23-300) U/L Urine Color Urine Appearance (Clear) Urine pH (5.0-8.0) Ur Specific Snyder (1.001-1.035) Urine Protein (Negative) Urine Glucose (UA) (Negative) Urine Ketones (Negative) Urine Blood (Negative) Urine Nitrite (Negative) Urine Bilirubin (Negative) Urine Urobilinogen (<2.0) mg/dL Ur Leukocyte Esterase (Negative) Urine RBC (0-5) /hpf Urine WBC (0-5) /hpf Urine Mucus (None) /hpf Stool Occult Blood Positive H (Negative) Coronavirus (PCR) Not Detected (Not Detectd) Disposition Clinical Impression: Diverticulitis, Fever, Leukocytosis, Bradycardia Disposition: ADMITTED IP TO THIS HOSP Referrals: Judith Loo MD [Primary Care Provider] - 1-2 days Time of Disposition: 11:41
[2020-12-23 09:09] LABS: Basophils % (A) 0 %; Eosinophils # (A) 0.1 k/uL (0-0.7); Eosinophils % (A) 1 %; HCT 42.3 % (34.0-46.0); Lymphocytes # (A) 0.6 k/uL (1.0-4.8); Lymphocytes % (A) 5 %; MCH 30.9 pg (25.0-35.0); MCHC 33.1 g/dL (31.0-37.0); MCV 93.3 fL (80.0-100.0); Mean Platelet Volume 9.6; Monocytes # (A) 0.5 k/uL (0-1.0); Monocytes % (A) 4 %; Neutrophils # (A) 10.2 k/uL (1.3-7.7); Neutrophils % (A) 89 %; Platelet Count 234 k/uL (150-450); RBC 4.54 m/uL (3.80-5.40); RDW 15.4 % (11.5-15.5); WBC 11.4 k/uL (3.8-10.6)
[2020-12-23 09:42] LABS: Albumin 3.7 g/dL (3.5-5.0); Total Bilirubin 2.1 mg/dL (0.2-1.3); Total Protein 6.7 g/dL (6.3-8.2)
[2020-12-23] MEDS ORDERED: ACETAMINOPHEN TAB 500 MG TAB PO STA (10:18)
--- NOTE | 2020-12-23 10:37 | CT ---
EXAMINATION TYPE: CT abdomen pelvis w con DATE OF EXAM: 12/23/2020 HISTORY: History of breast cancer with left lower quadrant pain CT DLP: 1194mGycm Automated Exposure Control for Dose Reduction was Utilized. CONTRAST: CT scan of the abdomen and pelvis is performed without oral but with IV Contrast, patient injected wi th 100 mL of Isovue 300. COMPARISON: Prior CT July 02, 2016 FINDINGS: LUNG BASES: Dependent atelectasis in the bases. Elevated left hemidiaphragm with mild to moderate lef t greater than right bibasilar linear scarring and/or atelectasis. Additional left basilar chronic co nsolidation and/or atelectasis. Cardiomegaly is redemonstrated. LIVER/GB: Hypodense lesion anteriorly consistent with simple thin-walled 1.5 cm cyst axial image 24 i ncidentally noted. PANCREAS: No significant abnormality is seen. SPLEEN: No significant abnormality is seen. ADRENALS: Thickening to left adrenal gland redemonstrated. KIDNEYS: Symmetric cortical medullary uptake and excretion without hydronephrosis seen bilaterally. M ildly distended bladder. BOWEL: Slightly suboptimal evaluation of bowel without enteric contrast. Stomach poorly distended and thus suboptimally evaluated. No suspicious small or large bowel dilatation is seen. Occasional scattered colonic diverticula with most prominent diverticulosis in the sigmoid colon. The re is moderate to severe concentric wall thickening with moderate to severe ill-defined fluid and fat stranding in the left pelvis. CT findings consistent with acute diverticulitis. No well-formed fluid collection or thick walled drainable abscess. There is however an recent left ovary superior to the acute diverticulitis heterogeneous 6.3 x 2.9 cm area of suspected fluid collection thought to reflect enhancing phlegmon axial image 73. Prior visualized normal left ovary not seen. This area is contigu ous with draining ovarian veins superior to this. Organizing complex abscess needs to be considered. Cannot exclude underlying fistula. Some small foci of air are concerning for contained perforation ve rsus tiny diverticula, for reference some suspicious foci of air near diverticulum anteriorly on axia l image 80 proximal sigmoid colon level. Cecum slightly low-lying into the right pelvis coronal image 29 for reference. UTERUS/ADNEXA: Uterus surgically absent or markedly atrophic. At the level of left ovary there is inc reased heterogeneity and prominence axial image 73 contiguous with draining left ovarian veins. Enhan cing phlegmon. Prominent but subcentimeter lymph nodes near this level are present. LYMPH NODES: No greater than 1cm abdominal or pelvic lymph nodes are appreciated. OSSEOUS STRUCTURES: Grade 1 retrolisthesis L1 on L2 and L2 on L3. Moderate disc space narrowing and v acuum disc phenomenon at these levels. Mild to moderate multilevel anterior and lateral spurring. OTHER: Moderate calcified plaque of the aorta extends into branch vessels. IMPRESSION: CT findings consistent with a severe acute diverticulitis sigmoid colon centered left pel vis. Enhancing organizing phlegmon noted in region of left ovary. Possible fistula. Cannot exclude co ntained perforation. Surgical consultation is advised.
--- NOTE | 2020-12-23 10:54 | XR ---
EXAMINATION TYPE: XR chest 2V DATE OF EXAM: 12/23/2020 COMPARISON: Prior chest x-ray September 28, 2018. Same day CT abdomen and pelvis study. HISTORY: Fever. TECHNIQUE: Frontal and lateral views of the chest are obtained. FINDINGS: There is chronic interstitial changes bilaterally and elevated left hemidiaphragm redemons trated. No suspicious new focal airspace opacity, pleural effusion, or pneumothorax is seen. The card iac silhouette size is stable and enlarged. Underlying scoliotic curvature is present. IMPRESSION: Cardiomegaly and chronic changes without new acute infiltrate.
[2020-12-23 11:00] LABS: Appearance,Urine Clear (Clear); Bilirubin,Urine Negative (Negative); Blood,Urine Negative (Negative); Color,Urine Yellow; Glucose,Urine (UA) Negative (Negative); Ketones,Urine Negative (Negative); Leukocyte Esterase,Urine Negative (Negative); Mucus,Urine Rare /hpf; Nitrite,Urine Negative (Negative); PH, Urine 5.5 (5.0-8.0); Protein,Urine 1+ (Negative); RBC,Urine 1 /hpf (0-5); Urobilinogen,Urine <2.0 mg/dL (<2.0); WBC,Urine <1 /hpf (0-5)
[2020-12-23] MEDS ORDERED: PIPERACILLIN-TAZOBACTAM 3.375 GM in SODIUM CHLORIDE 0.9% 100 ML IVPB STA (11:07)
[2020-12-23] MEDS ORDERED: LEVOFLOXACIN 750MG-D5W PMX 750 MG in DEXTROSE/WATER 1 150ML.BAG IVPB STA (11:26)
[2020-12-23] MEDS ORDERED: metroNIDAZOLE-NS PMX 500 MG in SALINE 1 100ML.BAG IVPB STA (11:26)
[2020-12-23] MEDS ORDERED: MORPHINE SULFATE 4 MG/ML SYRINGE IV PRN (11:41)
[2020-12-23] MEDS ORDERED: NALOXONE 0.4 MG/ML 1 ML VIAL IV PRN (11:41)
[2020-12-23] MEDS: SODIUM CHLORIDE 0.9% 1,000 ML IV SCH ×2 (11:53→20:34)
--- NOTE | 2020-12-23 13:25 | P.HPIM ---
History of Present Illness Patient is a pleasant 80-year-old female with known history of atrial fibrillation came in the with comments of left lower quadrant abdominal pain severe in nature denied any diarrhea but this did see some streaks of blood patient had a CT of the abdomen which showed severe diverticulitis with phlegmon and a microperforation cannot be ruled out. Patient denied any fever chills although patient did have high-grade fever here did have leukocytosis. Case was discussed with the Gen. surgery they recommended admission to the medicine patient is being admitted to medicine with the IV antibiotics patient will be started on Rocephin and metronidazole. REVIEW OF SYSTEMS: CONSTITUTIONAL: No fever, no malaise, no fatigue. HEENT: No recent visual problems or hearing problems. Denied any sore throat. CARDIOVASCULAR: No chest pain, orthopnea, PND, no palpitations, no syncope. PULMONARY: No shortness of breath, no cough, no hemoptysis. GASTROINTESTINAL: As mentioned in HPI NEUROLOGICAL: No headaches, no weakness, no numbness. HEMATOLOGICAL: Denies any bleeding or petechiae. GENITOURINARY: Denies any burning micturition, frequency, or urgency. MUSCULOSKELETAL/RHEUMATOLOGICAL: Denies any joint pain, swelling, or any muscle pain. ENDOCRINE: Denies any polyuria or polydipsia. The rest of the 14-point review of systems is negative. PHYSICAL EXAMINATION: GENERAL: The patient is alert and oriented x3, not in any acute distress. Well developed, well nourished. HEENT: Pupils are round and equally reacting to light. EOMI. No scleral icterus. No conjunctival pallor. Normocephalic, atraumatic. No pharyngeal erythema. No thyromegaly. CARDIOVASCULAR: S1 and S2 present. No murmurs, rubs, or gallops. PULMONARY: Chest is clear to auscultation, no wheezing or crackles. ABDOMEN: Soft, tenderness in the left lower quadrant nondistended, normoactive bowel sounds. No palpable organomegaly. MUSCULOSKELETAL: No joint swelling or deformity. EXTREMITIES: No cyanosis, clubbing, or pedal edema. NEUROLOGICAL: Gross neurological examination did not reveal any focal deficits. SKIN: No rashes. Assessment and plan -Acute diverticulitis, sepsis secondary to diverticulitis: Patient will be continued on above-mentioned antibodies that is Rocephin and metronidazole general surgery will be consulted because of the concerns of microperforation patient does have a phlegmon on the computed tomography scan. -Atrial fibrillation: Patient is presently rate controlled patient probably has proximal A. fib continue with anticoagulation for now and EKG showing junctional rhythm, patient is on Xarelto -Hypertension: Patient is bit hypotensive we'll cut down the dose of lisinopril hold off on hydrochlorothiazide patient is also bradycardic because of which I'll hold off on atenolol. Patient will be continued on flecainide DVT prophylaxis: On anticoagulation as mentioned above Past Medical History Past Medical History: Atrial Fibrillation, Cancer, Hypertension Additional Past Medical History / Comment(s): hx rt breast CA-2016-no radiation or chemo. colitis. hx of ocular migraine History of Any Multi-Drug Resistant Organisms: None Reported Past Surgical History: Adenoidectomy, Appendectomy, Section, Hysterectomy, Tonsillectomy Additional Past Surgical History / Comment(s): right lumpectomy. left ovary removed 1967. colon polyp removal Past Anesthesia/Blood Transfusion Reactions: No Reported Reaction Past Psychological History: Anxiety Smoking Status: Never smoker Past Alcohol Use History: None Reported Additional Past Alcohol Use History / Comment(s): quit smoking 20 years ago Past Drug Use History: None Reported - Past Family History Mother Family Medical History: Cancer Medications and Allergies Home Medications Medication Instructions Recorded Confirmed Type Flecainide [Tambocor] 100 mg PO BID 12/11/13 12/23/20 History Anastrozole [Arimidex] 1 mg PO DAILY 07/01/16 12/23/20 History Rivaroxaban [Xarelto] 20 mg PO HS 12/27/18 12/23/20 History Sertraline [Zoloft] 50 mg PO HS 12/27/18 12/23/20 History hydrALAZINE HCL [Apresoline] 25 mg PO BID 12/27/18 12/23/20 History lisinopriL 40 mg PO DAILY 12/27/18 12/23/20 History Cholecalciferol (Vitamin D3) 125 mcg PO DAILY 12/23/20 12/23/20 History [Vitamin D3 (125 MCG = 5,000 IU)] atenoloL [Tenormin] 25 mg PO DAILY 12/23/20 12/23/20 History Allergies Allergy/AdvReac Type Severity Reaction Status Date / Time Penicillins AdvReac Red face Verified 12/23/20 11:52 Oral steroids AdvReac Red face Uncoded 12/23/20 11:52 Physical Exam Vitals: Vital Signs Temp Pulse Resp BP Pulse Ox 12/23/20 12:00 99.1 F 51 L 18 115/70 95 12/23/20 10:25 101.3 F H 50 L 19 171/66 91 L 12/23/20 08:24 98 F 60 18 170/72 94 L Intake and Output 12/22/20 12/23/20 12/23/20 22:59 06:59 14:59 Other: Weight 83.915 kg Results CBC & Chem 7: 12/23/20 08:55 12/23/20 08:55 Labs: Abnormal Lab Results - Last 24 Hours (Table) 12/23/20 12/23/20 12/23/20 Range/Units 08:55 08:55 08:55 WBC 11.4 H (3.8-10.6) k/uL Neutrophils # 10.2 H (1.3-7.7) k/uL Lymphocytes # 0.6 L (1.0-4.8) k/uL Sodium 136 L (137-145) mmol/L BUN 20 H (7-17) mg/dL Glucose 146 H (74-99) mg/dL Total Bilirubin 2.1 H (0.2-1.3) mg/dL Alkaline Phosphatase 130 H (38-126) U/L Ur Specific [place] 1.050 H (1.001-1.035) Urine Protein 1+ H (Negative) Urine Mucus Rare H (None) /hpf Stool Occult Blood (Negative) 12/23/20 Range/Units 08:55 WBC (3.8-10.6) k/uL Neutrophils # (1.3-7.7) k/uL Lymphocytes # (1.0-4.8) k/uL Sodium (137-145) mmol/L BUN (7-17) mg/dL Glucose (74-99) mg/dL Total Bilirubin (0.2-1.3) mg/dL Alkaline Phosphatase (38-126) U/L Ur Specific [place] (1.001-1.035) Urine Protein (Negative) Urine Mucus (None) /hpf Stool Occult Blood Positive H (Negative) Thrombosis Risk Factor Assmnt - Choose All That Apply Each Factor Represents 1 point: Age 41-60 years Each Risk Factor Represents 2 Points: Age 61-74 years Thrombosis Risk Factor Assessment Total Risk Factor Score: 3 Thrombosis Risk Factor Assessment Level: Moderate Risk
--- NOTE | 2020-12-23 15:55 | P.GSCN ---
<Karey Cruz - Last Filed: 12/23/20 15:37> History of Present Illness Consult date: 12/23/20 History of present illness: CHIEF COMPLAINT: Left lower quadrant abdominal pain HISTORY OF PRESENT ILLNESS: This is a 80-year-old female with a known past medical history of diverticulosis, AVMs, atrial fibrillation anticoagulated with Xarelto, noncancerous colon polyp that was difficult to remove and required procedure to be completed at [facility] by GI specialist, breast cancer 2017 status post lumpectomy and hypertension. Surgical history includes appendectomy, , hysterectomy and bilateral oophorectomy. Patient presents to the hospital with complaints of left lower quadrant pain that started yesterday morning with sudden severe onset. Patient is nauseated. Patient reports the pain was so severe she could not stand up straight. She was also having low grade fevers at home. Patient also reports that her stools have been streaked with blood. She did have a fever of 101.3 and white count elevated 11.4 on admission. Computed tomography scan abdomen and pelvis shows CT findings consistent with severe acute diverticulitis sigmoid colon centered left pelvis. Enhancing organizing phlegmon noted in the region of the left ovary. Possible fistula. Cannot exclude contained perforation. Patient has been admitted to the hospital for an acute diverticulitis. She's been started on antibiotics. Surgical service has been consult in regards to diverticulitis. Since being admitted to the hospital patient's pain has improved. Patient denies any prior history of diverticulitis. PAST MEDICAL HISTORY: See list. PAST SURGICAL HISTORY: See list. MEDICATIONS: See list. ALLERGIES: See list. SOCIAL HISTORY: No illicit drug use. REVIEW OF SYSTEMS: CONSTITUTIONAL: Denies fever or chills. HEENT: Denies blurred vision, vision changes, or eye pain. Denies hemoptysis ENDOCRINE: Denies heat or cold intolerance. CARDIOVASCULAR: Denies chest pain or pressure. RESPIRATORY: No shortness of breath. GASTROINTESTINAL: Please refer to HPI. NEURO: Denies history of seizures. PSYCH: No depression or suicidal ideation HEMATOLOGIC: Denies bleeding disorders. LYMPHATIC: The patient denies any lumps and bumps around the neck. GENITOURINARY: Denies any blood in urine or increased urinary frequency. MUSCULOSKELETAL: Denies myalgias. Denies joint swelling. Denies decreased range of motion beyond patients baseline. SKIN: Denies pruitis. Denies rash. PHYSICAL EXAM: VITAL SIGNS: Reviewed GENERAL: Well-developed in no acute distress. HEENT: No sclera icterus. Extraocular movements grossly intact. Moist buccal mucosa. Head is atraumatic, normocephalic. Hears conversational speech. No nasal drainage. NECK: Supple without lymphadenopathy. CHEST: Non-labored respirations and equal bilateral excursions. CARDIOVASCULAR: Palpable 2+ radial pulses. ABDOMEN: Soft. Nondistended. Minimal tenderness to palpation in the left lower quadrant MUSCULOSKELETAL: No clubbing or cyanosis. NEUROLOGIC: No focal or lateralizing signs. Cranial nerves II through XII grossly intact. PSYCH: Appropriate affect. Alert and oriented to person, place and time. SKIN: Well perfused. Good skin turgor. LABORATORY DATA: WBC is 11.4 hemoglobin 14 platelets 234 sodium 136 potassium 4.0 BUN 20 creatinine 0.88 glucose 146 lactic 1.0 Total bilirubin 2.1 LFTs are normal alk phos 130 lipase 69 Urinalysis negative for infection Stool for occult blood positive COVID-19 not detected IMAGING: Computed tomography scan findings as stated above Chest x-ray cardiomegaly and chronic changes without new acute infiltrate EKG junctional rhythm ASSESSMENT: 1. Acute diverticulitis of sigmoid colon with phlegmon. Computed tomography scan also noted concerns for possible fistula and cannot exclude contained perforation. 2. Sepsis secondary to diverticulitis 3. History of diverticulosis 4. History of noncancerous colon polyp 5. Atrial fibrillation anticoagulated with Xarelto 6. History of breast cancer status post lumpectomy PLAN: -Continue medical treatment for diverticulitis -Continue IV antibiotics -Continue IV fluids -Continue clear liquids -Continue pain medication as needed -We will continue to observe patient Thank you for this consultation Physician Yarn Dumper note has been reviewed by physician. Signing provider agrees with the documented findings, assessment, and plan of care. Past Medical History Past Medical History: Atrial Fibrillation, Cancer, Hypertension Additional Past Medical History / Comment(s): hx rt breast CA-2016-no radiation or chemo. colitis. hx of ocular migraine History of Any Multi-Drug Resistant Organisms: None Reported Past Surgical History: Adenoidectomy, Appendectomy, Section, Hys terectomy, Tonsillectomy Additional Past Surgical History / Comment(s): right lumpectomy. left ovary removed 1967. colon polyp removal Past Anesthesia/Blood Transfusion Reactions: No Reported Reaction Past Psychological History: Anxiety Smoking Status: Never smoker Past Alcohol Use History: None Reported Additional Past Alcohol Use History / Comment(s): quit smoking 20 years ago Past Drug Use History: None Reported - Past Family History Mother Family Medical History: Cancer Medications and Allergies Home Medications Medication Instructions Recorded Confirmed Type Flecainide [Tambocor] 100 mg PO BID 12/11/13 12/23/20 History Anastrozole [Arimidex] 1 mg PO DAILY 07/01/16 12/23/20 History Rivaroxaban [Xarelto] 20 mg PO HS 12/27/18 12/23/20 History Sertraline [Zoloft] 50 mg PO HS 12/27/18 12/23/20 History hydrALAZINE HCL [Apresoline] 25 mg PO BID 12/27/18 12/23/20 History lisinopriL 40 mg PO DAILY 12/27/18 12/23/20 History Cholecalciferol (Vitamin D3) 125 mcg PO DAILY 12/23/20 12/23/20 History [Vitamin D3 (125 MCG = 5,000 IU)] atenoloL [Tenormin] 25 mg PO DAILY 12/23/20 12/23/20 History Allergies Allergy/AdvReac Type Severity Reaction Status Date / Time Penicillins AdvReac Red face Verified 12/23/20 11:52 Oral steroids AdvReac Red face Uncoded 12/23/20 11:52 Surgical - Exam Vital Signs Temp Pulse Resp BP Pulse Ox 98 F 60 18 170/72 94 L 12/23/20 08:24 12/23/20 08:24 12/23/20 08:24 12/23/20 08:24 12/23/20 08:24 Results - Labs 12/23/20 08:55 12/23/20 08:55 Abnormal Lab Results - Last 24 Hours (Table) 12/23/20 12/23/20 12/23/20 Range/Units 08:55 08:55 08:55 WBC 11.4 H (3.8-10.6) k/uL Neutrophils # 10.2 H (1.3-7.7) k/uL Lymphocytes # 0.6 L (1.0-4.8) k/uL Sodium 136 L (137-145) mmol/L BUN 20 H (7-17) mg/dL Glucose 146 H (74-99) mg/dL Total Bilirubin 2.1 H (0.2-1.3) mg/dL Alkaline Phosphatase 130 H (38-126) U/L Ur Specific [place] 1.050 H (1.001-1.035) Urine Protein 1+ H (Negative) Urine Mucus Rare H (None) /hpf Stool Occult Blood (Negative) 12/23/20 Range/Units 08:55 WBC (3.8-10.6) k/uL Neutrophils # (1.3-7.7) k/uL Lymphocytes # (1.0-4.8) k/uL Sodium (137-145) mmol/L BUN (7-17) mg/dL Glucose (74-99) mg/dL Total Bilirubin (0.2-1.3) mg/dL Alkaline Phosphatase (38-126) U/L Ur Specific [place] (1.001-1.035) Urine Protein (Negative) Urine Mucus (None) /hpf Stool Occult Blood Positive H (Negative) Diabetes panel 12/23/20 Range/Units 08:55 Sodium 136 L (137-145) mmol/L Potassium 4.0 (3.5-5.1) mmol/L Chloride 103 (98-107) mmol/L Carbon Dioxide 22 (22-30) mmol/L BUN 20 H (7-17) mg/dL Creatinine 0.88 (0.52-1.04) mg/dL Glucose 146 H (74-99) mg/dL Calcium 9.0 (8.4-10.2) mg/dL AST 24 (14-36) U/L ALT 17 (4-34) U/L Alkaline Phosphatase 130 H (38-126) U/L Total Protein 6.7 (6.3-8.2) g/dL Albumin 3.7 (3.5-5.0) g/dL Calcium panel 12/23/20 Range/Units 08:55 Calcium 9.0 (8.4-10.2) mg/dL Albumin 3.7 (3.5-5.0) g/dL Pituitary panel 12/23/20 Range/Units 08:55 Sodium 136 L (137-145) mmol/L Potassium 4.0 (3.5-5.1) mmol/L Chloride 103 (98-107) mmol/L Carbon Dioxide 22 (22-30) mmol/L BUN 20 H (7-17) mg/dL Creatinine 0.88 (0.52-1.04) mg/dL Glucose 146 H (74-99) mg/dL Calcium 9.0 (8.4-10.2) mg/dL Adrenal panel 12/23/20 Range/Units 08:55 Sodium 136 L (137-145) mmol/L Potassium 4.0 (3.5-5.1) mmol/L Chloride 103 (98-107) mmol/L Carbon Dioxide 22 (22-30) mmol/L BUN 20 H (7-17) mg/dL Creatinine 0.88 (0.52-1.04) mg/dL Glucose 146 H (74-99) mg/dL Calcium 9.0 (8.4-10.2) mg/dL Total Bilirubin 2.1 H (0.2-1.3) mg/dL AST 24 (14-36) U/L ALT 17 (4-34) U/L Alkaline Phosphatase 130 H (38-126) U/L Total Protein 6.7 (6.3-8.2) g/dL Albumin 3.7 (3.5-5.0) g/dL <Saranya Odom - Last Filed: 12/24/20 21:58> History of Present Illness History of present illness: Patient seen and evaluated. CHIEF COMPLAINT: Diverticulitis HISTORY OF PRESENT ILLNESS: The patient is an 80-year-old female with history of breast cancer, colon polyp resection, atrial fibrillation who was admitted with acute onset lower abdominal pain. Diagnostic studies demonstrated diverticulitis. As a result she was admitted. Patient is a blood thinner. She is seeking no surgical intervention. She denies any prior episodes. She does report eating tomatoes prior to her abdominal pain. She also reports a history of at least 7 colonoscopies in the last 1-1/2 years due to resection of her colon polyp. "I like to take care of myself, exercise." Patient reports her last episode involved complete removal of polyp with hemorrhage and requiring admission to [facility] in August 2020, 4 months ago. Currently, patient came in with lower abdominal pain that is improving. PAST MEDICAL HISTORY: See list and reviewed PAST SURGICAL HISTORY: See list and reviewed MEDICATIONS: See list and reviewed ALLERGIES: See list and reviewed SOCIAL HISTORY: See list and reviewed FAMILY HISTORY: See list and reviewed REVIEW OF ORGAN SYSTEMS: CONSTITUTIONAL: No fevers or chills. EYES: Denies any trouble with vision. No glasses. HEENT: No difficulties with hearing. No nosebleeds. No difficulty swallowing. RESPIRATORY: Denies pneumonia. Denies any troubles with breathing or dyspnea on exertion. CARDIOVASCULAR: Has atrial fibrillation. GASTROINTESTINAL: History of large colon polyp resection including diverticulitis upon current admission. GENITOURINARY: Denies any blood in urine or increased urinary frequency. NEUROLOGICAL: Denies any numbness or tingling along the distal extremities. No seizure disorders or headaches. MUSCULOSKELETAL: Has back pain, stiffness or joint arthritis. SKIN: No current skin cancer. No rash. PSYCHIATRIC: Has depression. No suicidal thoughts. ENDOCRINE: Denies current thyroid disorders. Denies any blood sugar glucose intolerance. HEME/LYMPHATIC: Denies any lumps and bumps around the neck. No recent deep venous thrombosis. Chronic blood thinners for HIV fibrillation. ALLERGY/IMMUNOLOGY: No immunoglobulin therapy. No immune deficiencies. BREAST: History of breast cancer without chemoradiation. PHYSICAL EXAM: VITALS: Reviewed CONSTITUTIONAL: Well developed and in no acute distress. EYES: Conjuctivae without sclera icterus. Extraocular movements grossly intact. HEAD, EARS, NOSE, THROAT: Moist buccal mucosa. Head is atraumatic, normocephalic. Hears conversational speech. No nasal drainage. NECK: No JV distention. No thyroidomegaly. RESPIRATORY: Non-labored respirations and equal bilateral excursions. No gross wheezes. CARDIOVASCULAR: Irregular rate and rhythm. Ex ABDOMEN: Tender lower abdomen. No peritonitis. MUSCULOSKELETAL: Nail and fingers with good capillary refill. SKIN: Warm and well perfused with good skin turgor. NEUROLOGIC: Cranial nerves II through XII grossly intact. No focal or lateralizing signs. PSYCH: Appropriate affect. Alert and oriented to person, place and time. Displays appropriate insight. CLINCAL LABS: Reviewed. WBC on admission of 11,000. Urinalysis positive for protein. IMAGING: Independently reviewed CT of the abdomen and pelvis demonstrates moderate redundancy of sigmoid colon including transverse colon. Diverticulitis identified along the sigmoid colon. No free air identified. No bowel obstruction identified. This is my independent interpretation. RADIOLOGY: Report reviewed of the CT of the abdomen and pelvis with phlegmon left pelvis 6 x 3 cm. ASSESSMENT: 1. Complex sigmoid diverticulitis PLAN: 1. At this time, recommend IV fluid hydration and IV antibiotics. 2. Continue blood thinner. Thank you for this kind consultation. Surgical - Exam Vital Signs Temp Pulse Resp BP Pulse Ox 98 F 60 18 170/72 94 L 12/23/20 08:24 12/23/20 08:24 12/23/20 08:24 12/23/20 08:24 12/23/20 08:24 Results - Labs 12/24/20 05:21 12/24/20 05:21 Abnormal Lab Results - Last 24 Hours (Table) 12/24/20 12/24/20 Range/Units 05:21 05:21 RBC 3.75 L (4.10-5.20) X 10*6/uL Hgb 11.3 L (12.0-15.0) g/dL Hct 36.2 L (37.2-46.3) % MCHC 31.2 L (32.0-37.0) g/dL RDW 15.9 H (11.5-14.5) % BUN/Creatinine Ratio 21.11 H (12.00-20.00) Ratio Calcium 8.0 L (8.7-10.3) mg/dL Microbiology - Last 24 Hours (Table) 12/23/20 11:20 Blood Culture - Preliminary Blood No Growth after 24 hours 12/23/20 11:10 Blood Culture - Preliminary Blood No Growth after 24 hours Diabetes panel 12/24/20 Range/Units 05:21 Sodium 138 (135-145) mmol/L Potassium 4.3 (3.5-5.5) mmol/L Chloride 106 (96-109) mmol/L Carbon Dioxide 22.6 (21.6-31.8) mmol/L BUN 19.0 (9.0-27.0) mg/dL Creatinine 0.9 (0.6-1.5) mg/dL Glucose 91 (70-110) mg/dL Calcium 8.0 L (8.7-10.3) mg/dL Calcium panel 12/24/20 Range/Units 05:21 Calcium 8.0 L (8.7-10.3) mg/dL Pituitary panel 12/24/20 Range/Units 05:21 Sodium 138 (135-145) mmol/L Potassium 4.3 (3.5-5.5) mmol/L Chloride 106 (96-109) mmol/L Carbon Dioxide 22.6 (21.6-31.8) mmol/L BUN 19.0 (9.0-27.0) mg/dL Creatinine 0.9 (0.6-1.5) mg/dL Glucose 91 (70-110) mg/dL Calcium 8.0 L (8.7-10.3) mg/dL Adrenal panel 12/24/20 Range/Units 05:21 Sodium 138 (135-145) mmol/L Potassium 4.3 (3.5-5.5) mmol/L Chloride 106 (96-109) mmol/L Carbon Dioxide 22.6 (21.6-31.8) mmol/L BUN 19.0 (9.0-27.0) mg/dL Creatinine 0.9 (0.6-1.5) mg/dL Glucose 91 (70-110) mg/dL Calcium 8.0 L (8.7-10.3) mg/dL Assessment and Plan (1) Perforation of sigmoid colon due to diverticulitis Current Visit: Yes Status: Acute Code(s): K57.20 - DVTRCLI OF LG INT W PERFORATION AND ABSCESS W/O BLEEDING SNOMED Code(s): 6401002921871940 (2) Anticoagulant long-term use Current Visit: Yes Status: Acute Code(s): Z79.01 - RN PROCEDURES (CURRENT) USE OF ANTICOAGULANTS SNOMED Code(s): 151498534 (3) Atrial fibrillation Current Visit: Yes Status: Acute Code(s): I48.91 - UNSPECIFIED ATRIAL FIBRILLATION SNOMED Code(s): 67435273 (4) History of breast cancer Current Visit: Yes Status: Acute Code(s): Z85.3 - PERSONAL HISTORY OF MALIGNANT NEOPLASM OF BREAST SNOMED Code(s): 700031732 (5) Leukocytosis Current Visit: Yes Status: Acute Code(s): D72.829 - ELEVATED WHITE BLOOD CELL COUNT, UNSPECIFIED SNOMED Code(s): 652774065
[2020-12-23] MEDS ORDERED: PIPERACILLIN-TAZOBACTAM 3.375 GM in SODIUM CHLORIDE 0.9% 100 ML IVPB SCH (16:00)
[2020-12-23] MEDS: RIVAROXABAN 20 MG TAB PO SCH (19:43)
[2020-12-23] MEDS: metroNIDAZOLE-NS PMX 500 MG in SALINE 1 100ML.BAG IVPB SCH (20:32)
[2020-12-23] MEDS: FLECAINIDE 50 MG TAB PO SCH (20:32)
[2020-12-23] MEDS: SERTRALINE 50 MG TAB PO SCH (20:32)
[2020-12-24] MEDS: metroNIDAZOLE-NS PMX 500 MG in SALINE 1 100ML.BAG IVPB SCH ×2 (04:34→12:00)
[2020-12-24] MEDS: ANASTROZOLE 1 MG TAB PO SCH (07:19)
[2020-12-24] MEDS: lisinopriL 20 MG TAB PO SCH (07:19)
[2020-12-24] MEDS: FLECAINIDE 50 MG TAB PO SCH ×2 (07:20→20:16)
[2020-12-24] MEDS ORDERED: cefTRIAXone IN SWFI 1,000 MG/10 ML SYRINGE IVP SCH (09:00)
[2020-12-24] MEDS ORDERED: LEVOFLOXACIN 750MG-D5W PMX 750 MG in DEXTROSE/WATER 1 150ML.BAG IVPB SCH (09:00)
[2020-12-24 09:32] LABS: HCT 36.2 % (37.2-46.3); HGB 11.3 g/dL (12.0-15.0); MCH 30.1 pg (27.0-32.0); MCHC 31.2 g/dL (32.0-37.0); MCV 96.5 fL (80.0-97.0); Mean Platelet Volume 12.1 fL (9.5-12.2); Platelet Count 184 X 10*3/uL (140-440); RBC 3.75 X 10*6/uL (4.10-5.20); RDW 15.9 % (11.5-14.5); WBC 8.87 X 10*3/uL (4.50-10.00)
[2020-12-24 11:21] LABS: Anion Gap 9.4 mmol/L (4.00-12.00); BUN/Creat Ratio 21.11 Ratio (12.00-20.00); Carbon Dioxide 22.6 mmol/L (21.6-31.8); Non-African American GFR(CKD) 60.4 (60.0-200.0); Potassium 4.3 mmol/L (3.5-5.5)
[2020-12-24] MEDS: SODIUM CHLORIDE 0.9% 1,000 ML IV SCH ×3 (11:59→20:17)
--- NOTE | 2020-12-24 13:03 | P.PN ---
<Karey Cruz - Last Filed: 12/24/20 12:58> Subjective Progress Note Date: 12/24/20 CHIEF COMPLAINT: Abdominal pain HISTORY OF PRESENT ILLNESS: Circumflex service is following regards to patient's acute diverticulitis. She reports decrease in her left lower quadrant abdominal pain. She denies any nausea vomiting. She did have urinary retention and required to be straight cathed. She denies any nausea or vomiting. Afebrile. WBC has normalized at 8.87 HGB 11.3 PHYSICAL EXAM: VITAL SIGNS: Reviewed GENERAL: Well-developed in no acute distress. HEENT: No sclera icterus. Extraocular movements grossly intact. Moist buccal mucosa. Head is atraumatic, normocephalic. Hears conversational speech. No nasal dr ainage. NECK: Supple without lymphadenopathy. CHEST: Non-labored respirations and equal bilateral excursions. CARDIOVASCULAR: Palpable 2+ radial pulses. ABDOMEN: Soft. Nondistended. Minimal tenderness with palpation left lower quadrant MUSCULOSKELETAL: No clubbing or cyanosis. NEUROLOGIC: No focal or lateralizing signs. Cranial nerves II through XII grossly intact. PSYCH: Appropriate affect. Alert and oriented to person, place and time. SKIN: Well perfused. Good skin turgor. ASSESSMENT: 1. Acute diverticulitis of sigmoid colon with phlegmon. Computed tomography scan also noted concerns for possible fistula and cannot exclude contained perforation. 2. Sepsis secondary to diverticulitis 3. History of diverticulosis 4. History of noncancerous colon polyp 5. Atrial fibrillation anticoagulated with Xarelto 6. History of breast cancer status post lumpectomy PLAN: -No surgical intervention planned -Continue conservative management for diverticulitis -Continue IV antibiotics -Continue IV fluids -Continue pain medication as needed -Advance diet to full liquids Physician Street Flusher Driver note has been reviewed by physician. Signing provider agrees with the documented findings, assessment, and plan of care. Objective - Vital Signs Vital signs: Vital Signs Temp 98.2 F 12/24/20 08:00 Pulse 55 L 12/24/20 10:18 Resp 16 12/24/20 08:00 BP 129/74 12/24/20 10:18 Pulse Ox 97 12/24/20 08:00 Intake & Output 12/23/20 12/24/20 12/24/20 18:59 06:59 18:59 Intake Total 1760 Output Total 600 Balance -600 1760 Weight 83.915 kg Intake: Intake, IV Titration 1760 Amount Sodium Chloride 0.9% 1, 1560 000 ml @ 130 mls/hr IV . Q7H42M [facility] Rx#:[id number] metroNIDAZOLE-NS PMX 500 200 mg In Saline 1 100ml.bag @ 100 mls/hr IVPB Q8H [facility] Rx#:[id number] Output: Urine 600 Straight 600 Post Void Residual 0 Other: Voiding Method Self-Catheterization # Voids 1 - Labs CBC & Chem 7: 12/24/20 05:21 12/24/20 05:21 Labs: Abnormal Lab Results - Last 24 Hours (Table) 12/24/20 12/24/20 Range/Units 05:21 05:21 RBC 3.75 L (4.10-5.20) X 10*6/uL Hgb 11.3 L (12.0-15.0) g/dL Hct 36.2 L (37.2-46.3) % MCHC 31.2 L (32.0-37.0) g/dL RDW 15.9 H (11.5-14.5) % BUN/Creatinine Ratio 21.11 H (12.00-20.00) Ratio Calcium 8.0 L (8.7-10.3) mg/dL <Saranya Odom - Last Filed: 12/24/20 22:03> Subjective Patient seen and evaluated CHIEF COMPLAINT: Diverticulitis HISTORY OF PRESENT ILLNESS: The patient is an 80-year-old female with history of breast cancer, colon polyp resection, atrial fibrillation who was admitted with acute onset lower abdominal pain. She reports improvement of abdominal pain. She is Tylenol liquid diet. She has a Mcclellan catheter due to urinary retention. She denies any stool in her urine. She denies blood in her urine. "I do not want surgery." REVIEW OF ORGAN SYSTEMS: No fevers or chills. No chest pain. No shortness of breath. PHYSICAL EXAM: VITALS: Reviewed CONSTITUTIONAL: Well developed and in no acute distress. EYES: Conjuctivae without sclera icterus. Extraocular movements grossly intact. HEAD, EARS, NOSE, THROAT: Moist buccal mucosa. Head is atraumatic, normocephalic. Hears conversational speech. No nasal drainage. RESPIRATORY: Non-labored respirations and equal bilateral excursions. No gross wheezes. CARDIOVASCULAR: Irregular rate and rhythm. ABDOMEN: Tender lower abdomen. No peritonitis. MUSCULOSKELETAL: Nail and fingers with good capillary refill. SKIN: Warm and well perfused with good skin turgor. NEUROLOGIC: Cranial nerves II through XII grossly intact. No focal or lateralizing signs. PSYCH: Appropriate affect. Alert and oriented to person, place and time. Displays appropriate insight. : Mcclellan with dark urine. Clear. No cloudy sedimentation. CLINCAL LABS: Reviewed. WBC on admission of 11,000 now normal, over 8000 RECORDS: Colonoscopy reviewed 4 cm broad-based ascending colon polyp, now resected. ASSESSMENT: 1. Complex sigmoid diverticulitis PLAN: 1. Clinically she is improving. Continue IV antibiotics. 2. Continue blood thinners. 3. Conservative management per patient request. Objective - Vital Signs Vital signs: Vital Signs Temp 97.9 F 12/24/20 14:00 Pulse 53 L 12/24/20 14:00 Resp 16 12/24/20 14:00 BP 160/64 12/24/20 14:00 Pulse Ox 88 L 12/24/20 14:00 Intake & Output 12/23/20 12/24/20 12/24/20 18:59 06:59 18:59 Intake Total 1760 1980 Output Total 600 1000 Balance -600 1760 980 Weight 83.915 kg 83.915 kg Intake: Intake, IV Titration 1760 1380 Amount Levofloxacin 750Mg-D5w 150 Pmx 750 mg In Dextrose/ Water 1 150ml.bag @ 100 mls/hr IVPB DAILY [facility] Rx# :[id number] Sodium Chloride 0.9% 1, 1560 1030 000 ml @ 130 mls/hr IV . Q7H42M [facility] Rx#:[id number] cefTRIAXone 2 gm In 100 Sodium Chloride 0.9% 50 ml @ 100 mls/hr IVPB Q24H [facility] Rx#:[id number] metroNIDAZOLE-NS PMX 500 200 100 mg In Saline 1 100ml.bag @ 100 mls/hr IVPB Q8H [facility] Rx#:[id number] Oral 600 Output: Urine 600 1000 Straight 600 1000 Post Void Residual 0 Other: Voiding Method Self-Catheterization # Voids 1 - Labs CBC & Chem 7: 12/24/20 05:21 12/24/20 05:21 Labs: Abnormal Lab Results - Last 24 Hours (Table) 12/24/20 12/24/20 Range/Units 05:21 05:21 RBC 3.75 L (4.10-5.20) X 10*6/uL Hgb 11.3 L (12.0-15.0) g/dL Hct 36.2 L (37.2-46.3) % MCHC 31.2 L (32.0-37.0) g/dL RDW 15.9 H (11.5-14.5) % BUN/Creatinine Ratio 21.11 H (12.00-20.00) Ratio Calcium 8.0 L (8.7-10.3) mg/dL Microbiology - Last 24 Hours (Table) 12/23/20 11:20 Blood Culture - Preliminary Blood No Growth after 24 hours 12/23/20 11:10 Blood Culture - Preliminary Blood No Growth after 24 hours Assessment and Plan (1) Anticoagulant long-term use Current Visit: Yes Status: Acute Code(s): Z79.01 - HALFWAY (CURRENT) USE OF ANTICOAGULANTS SNOMED Code(s): 090008482 (2) Atrial fibrillation Current Visit: Yes Status: Acute Code(s): I48.91 - UNSPECIFIED ATRIAL FIBRI LLATION SNOMED Code(s): 22349561 (3) Perforation of sigmoid colon due to diverticulitis Current Visit: Yes Status: Acute Code(s): K57.20 - DVTRCLI OF LG INT W PERFORATION AND ABSCESS W/O BLEEDING SNOMED Code(s): 6098772548791115
--- NOTE | 2020-12-24 14:25 | P.PN ---
Subjective Progress Note Date: 12/24/20 History of Present Illness Patient is a pleasant 80-year-old female with known history of atrial fibrillation came in the with comments of left lower quadrant abdominal pain severe in nature denied any diarrhea but this did see some streaks of blood patient had a CT of the abdomen which showed severe diverticulitis with phlegmon and a microperforation cannot be ruled out. Patient denied any fever chills although patient did have high-grade fever here did have leukocytosis. Case was discussed with the Gen. surgery they recommended admission to the medicine patient is being admitted to medicine with the IV antibiotics patient will be started on Rocephin and metronidazole. Enter 12/24/2020 Patient is evaluated today sitting up in the bed. She states that her abdominal pain has improved on 23 out of 10. She states that is in her left lower quadrant. It is exacerbated by food at times. She is continued on IV antibiotics and IV fluids. Patient will be evaluated today by surgical services. However there is no recreation currently for any surgical intervention. Patient has a history of multiple colonoscopies in an attempt to remove a large polyp, this is a however completed at [facility] which she developed a GI bleed after that was ultimately cauterized. Laboratory reveals a white count of 8.7, hemoglobin 11.3. Sodium level is repeated at 138, BUN and c reatinine are within normal limits, coronavirus negative. Patient does have a positive occult blood. Chest x-ray on admission revealed cardiomegaly and chronic changes without new acute infiltrate. Vital signs remained stable, temp 98.2, heart rate 55 sinus bradycardia, blood pressure 129/74, 97% on 2 L simple cannula. Patient currently denies any nausea vomiting, diarrhea or blood in the stool. Patient is on hormonal therapy for a history of breast cancer with Arimidex. ROS Constitutional: Denied any fatigue denied any fever. Cardio vascular: denied any chest pain, palpitations Gastrointestinal denied any nausea vomiting, reports intermittent left lower quadrant abdominal pain 2/10 Pulmonary: Denied any shortness of breath cough Neurologic denied any new focal deficits All inpatient medications were reviewed and appropriate changes in these medications as dictated in the interval history and assessment and plan. PHYSICAL EXAMINATION: GENERAL: The patient is alert and oriented x3, not in any acute distress. Well developed, well nourished. HEENT: Pupils are round and equally reacting to light. EOMI. No scleral icterus. No conjunctival pallor. Normocephalic, atraumatic. No pharyngeal erythema. No thyromegaly. CARDIOVASCULAR: S1 and S2 present. No murmurs, rubs, or gallops. PULMONARY: Chest is clear to auscultation, no wheezing or crackles. ABDOMEN: Soft, tender LLQ, nondistended, normoactive bowel sounds. No palpable organomegaly. MUSCULOSKELETAL: No joint swelling or deformity. EXTREMITIES: No cyanosis, clubbing, or pedal edema. NEUROLOGICAL: Gross neurological examination did not reveal any focal deficits. SKIN: No rashes. Assessment and plan -Acute diverticulitis, sepsis secondary to diverticulitis: Patient will be co ntinued on above-mentioned antibodies that is Rocephin and metronidazole general surgery will be consulted because of the concerns of microperforation patient does have a phlegmon on the computed tomography scan. -History of paroxysmal atrial fibrillation - EKG showing junctional rhythm, patient is on Xarelto -Hypertension: Patient is bit hypotensive we'll cut down the dose of lisinopril hold off on hydrochlorothiazide patient is also bradycardic because of which I'll hold off on atenolol. Patient will be continued on flecainide -History of breast cancer in 2017, right lumpectomy, continue on oral hormone therapy -Anemia, most likely an acute GI bleed secondary to acute diverticulitis, unable to rule out microperforation, occult blood positive, continue to monitor trends. Patient denies any blood in her bowels. Anxiety continue on Zoloft DVT prophylaxis: Xarelto Plan continue with current IV antibiotics, Xarelto, monitor hemoglobin. Appreciate surgical consultation. Patient has been advanced to a full liquid diet. Objective - Vital Signs Vital signs: Vital Signs Temp 98.2 F 12/24/20 08:00 Pulse 55 L 12/24/20 10:18 Resp 16 12/24/20 08:00 BP 129/74 12/24/20 10:18 Pulse Ox 97 12/24/20 08:00 Intake & Output 12/23/20 12/24/20 12/24/20 18:59 06:59 18:59 Intake Total 1760 Output Total 600 Balance -600 1760 Weight 83.915 kg Intake: Intake, IV Titration 1760 Amount Sodium Chloride 0.9% 1, 1560 000 ml @ 130 mls/hr IV . Q7H42M [facility] Rx#:[id number] metroNIDAZOLE-NS PMX 500 200 mg In Saline 1 100ml.bag @ 100 mls/hr IVPB Q8H [facility] Rx#:[id number] Output: Urine 600 Straight 600 Post Void Residual 0 Other: Voiding Method Self-Catheterization # Voids 1 - Labs CBC & Chem 7: 12/24/20 05:21 12/24/20 05:21 Labs: Abnormal Lab Results - Last 24 Hours (Table) 12/23/20 12/24/20 Range/Units 08:55 05:21 RBC 3.75 L (4.10-5.20) X 10*6/uL Hgb 11.3 L (12.0-15.0) g/dL Hct 36.2 L (37.2-46.3) % MCHC 31.2 L (32.0-37.0) g/dL RDW 15.9 H (11.5-14.5) % Ur Specific [place] 1.050 H (1.001-1.035) Urine Protein 1+ H (Negative) Urine Mucus Rare H (None) /hpf Assessment and Plan Time with Patient: Greater than 30
[2020-12-24 14:29] VITALS: BMI 27.3
[2020-12-24] MEDS: SERTRALINE 50 MG TAB PO SCH (20:16)
[2020-12-24] MEDS: RIVAROXABAN 20 MG TAB PO SCH (20:16)
[2020-12-24] MEDS: metroNIDAZOLE 500 MG TAB PO SCH (20:16)
[2020-12-25] MEDS: SODIUM CHLORIDE 0.9% 1,000 ML IV SCH ×2 (04:40→12:28)
[2020-12-25] MEDS: metroNIDAZOLE 500 MG TAB PO SCH ×2 (04:56→12:30)
[2020-12-25 07:49] VITALS: RESP 16
[2020-12-25] MEDS: lisinopriL 20 MG TAB PO SCH (08:09)
[2020-12-25] MEDS: FLECAINIDE 50 MG TAB PO SCH (08:09)
[2020-12-25] MEDS: ANASTROZOLE 1 MG TAB PO SCH (08:10)
[2020-12-25 09:07] LABS: Basophils # (A) 0.04 X 10*3/uL (0.00-0.10); Basophils % (A) 0.7 %; Eosinophils # (A) 0.04 X 10*3/uL (0.04-0.35); Eosinophils % (A) 0.7 %; HGB 11.6 g/dL (12.0-15.0); Lymphocytes # (A) 0.66 X 10*3/uL (0.90-5.00); Lymphocytes % (A) 11.1 %; MCH 29.7 pg (27.0-32.0); MCHC 31.4 g/dL (32.0-37.0); MCV 94.6 fL (80.0-97.0); Mean Platelet Volume 12.1 fL (9.5-12.2); Monocytes # (A) 0.57 X 10*3/uL (0.20-1.00); Monocytes % (A) 9.6 %; Neutrophils # (A) 4.62 X 10*3/uL (1.80-7.70); Neutrophils % (A) 77.6 %; Platelet Count 185 X 10*3/uL (140-440); RBC 3.91 X 10*6/uL (4.10-5.20); RDW 15.8 % (11.5-14.5); WBC 5.95 X 10*3/uL (4.50-10.00)
--- NOTE | 2020-12-25 11:04 | P.PN ---
<Karey Cruz - Last Filed: 12/25/20 10:56> Subjective Progress Note Date: 12/25/20 CHIEF COMPLAINT: Abdominal pain HISTORY OF PRESENT ILLNESS: Surgical service is following in regards to patient's acute diverticulitis. Patient continues to have improvement in her pain. She reports now the pain is intermittent. And currently has no pain. She denies any nausea or vomiting. Denies any bowel movement. She is tres erating the full liquid diet. She had Mcclellan catheter inserted for urinary retention. She complained of rapid beating of her heart early this morning. Medicine service has ordered EKG. Afebrile. Elevated BP. WBC 5.95 hemoglobin 11.6 platelets 185 PHYSICAL EXAM: VITAL SIGNS: Reviewed GENERAL: Well-developed in no acute distress. HEENT: No sclera icterus. Extraocular movements grossly intact. Moist buccal mucosa. Head is atraumatic, normocephalic. Hears conversational speech. No nasal d rainage. NECK: Supple without lymphadenopathy. CHEST: Non-labored respirations and equal bilateral excursions. CARDIOVASCULAR: Palpable 2+ radial pulses. ABDOMEN: Soft. Nondistended. Nontender MUSCULOSKELETAL: No clubbing or cyanosis. NEUROLOGIC: No focal or lateralizing signs. Cranial nerves II through XII grossly intact. PSYCH: Appropriate affect. Alert and oriented to person, place and time. SKIN: Well perfused. Good skin turgor. ASSESSMENT: 1. Acute diverticulitis of sigmoid colon with phlegmon. 2. Sepsis secondary to diverticulitis 3. History of diverticulosis 4. History of noncancerous colon polyp 5. Atrial fibrillation anticoagulated with Xarelto 6. History of breast cancer status post lumpectomy PLAN: -No surgical intervention planned -Continue conservative management for diverticulitis -Continue IV antibiotics -Continue IV fluids -Continue pain medication as needed -Advance diet to low fiber -Encourage patient to ambulate Physician Migrant Leader note has been reviewed by physician. Signing provider agrees with the documented findings, assessment, and plan of care. Objective - Vital Signs Vital signs: Vital Signs Temp 98.8 F 12/25/20 07:48 Pulse 82 12/25/20 08:26 Resp 16 12/25/20 07:48 BP 180/79 12/25/20 07:48 Pulse Ox 89 L 12/25/20 07:48 Intake & Output 12/24/20 12/25/2012/25/21 18:59 06:59 18:59 Intake Total 1980 Output Total 1000 800 Balance 980 -800 Weight 83.915 kg Intake: Intake, IV Titration 1380 Amount Levofloxacin 750Mg-D5w 150 Pmx 750 mg In Dextrose/ Water 1 150ml.bag @ 100 mls/hr IVPB DAILY [facility] Rx# :[id number] Sodium Chloride 0.9% 1, 1030 000 ml @ 130 mls/hr IV . Q7H42M [facility] Rx#:[id number] cefTRIAXone 2 gm In 100 Sodium Chloride 0.9% 50 ml @ 100 mls/hr IVPB Q24H [facility] Rx#:[id number] metroNIDAZOLE-NS PMX 500 100 mg In Saline 1 100ml.bag @ 100 mls/hr IVPB Q8H [facility] Rx#:[id number] Oral 600 Output: Urine 1000 800 Straight 1000 Other: Voiding Method Indwelling Catheter Indwelling Catheter - Labs CBC & Chem 7: 12/25/20 06:22 12/24/20 05:21 Labs: Abnormal Lab Results - Last 24 Hours (Table) 12/24/20 12/25/20 Range/Units 05:21 06:22 RBC 3.91 L (4.10-5.20) X 10*6/uL Hgb 11.6 L (12.0-15.0) g/dL Hct 37.0 L (37.2-46.3) % MCHC 31.4 L (32.0-37.0) g/dL RDW 15.8 H (11.5-14.5) % Lymphocytes # 0.66 L (0.90-5.00) X 10*3/uL BUN/Creatinine Ratio 21.11 H (12.00-20.00) Ratio Calcium 8.0 L (8.7-10.3) mg/dL Microbiology - Last 24 Hours (Table) 12/23/20 11:20 Blood Culture - Preliminary Blood No Growth after 24 hours 12/23/20 11:10 Blood Culture - Preliminary Blood No Growth after 24 hours <Saranya Odom - Last Filed: 12/25/20 16:18> Subjective Patient seen and evaluated with above. CHIEF COMPLAINT: Diverticulitis HISTORY OF PRESENT ILLNESS: The patient is an 80-year-old female presents with, peridiverticulitis. She reports routine urinary retention during prior hospital admissions. Otherwise abdominal pain moderately improved since admission. She is tolerating low residue diet. REVIEW OF ORGAN SYSTEMS: No fevers or chills. No chest pain. No shortness of breath. PHYSICAL EXAM: VITALS: Reviewed CONSTITUTIONAL: Well developed and in no acute distress. EYES: Conjuctivae without sclera icterus. Extraocular movements grossly intact. HEAD, EARS, NOSE, THROAT: Moist buccal mucosa. Head is atraumatic, normocephalic. Hears conversational speech. No nasal drainage. RESPIRATORY: Non-labored respirations and equal bilateral excursions. No gross wheezes. CARDIOVASCULAR: Irregular rate and rhythm. ABDOMEN: Tender lower abdomen. No peritonitis. MUSCULOSKELETAL: Nail and fingers with good capillary refill. SKIN: Warm and well perfused with good skin turgor. NEUROLOGIC: Cranial nerves II through XII grossly intact. No focal or lateralizing signs. PSYCH: Appropriate affect. Alert and oriented to person, place and time. Displays appropriate insight. CLINCAL LABS: Reviewed. WBC over 5000. ASSESSMENT: 1. Complicated sigmoid diverticulitis PLAN: 1. Patient is stable for discharge from a surgical standpoint with follow-up as outpatient. 2. Continue IV antibiotics Objective - Vital Signs Vital signs: Vital Signs Temp 98.6 F 12/25/20 14:00 Pulse 59 L 12/25/20 14:00 Resp 16 12/25/20 14:00 BP 169/74 12/25/20 14:00 Pulse Ox 98 12/25/20 14:00 Intake & Output 12/24/20 12/25/20 12/25/20 18:59 06:59 18:59 Intake Total 1980 Output Total 1000 800 Balance 980 -800 Weight 83.915 kg Intake: Intake, IV Titration 1380 Amount Levofloxacin 750Mg-D5w 150 Pmx 750 mg In Dextrose/ Water 1 150ml.bag @ 100 mls/hr IVPB DAILY [facility] Rx# :[id number] Sodium Chloride 0.9% 1, 1030 000 ml @ 130 mls/hr IV . Q7H42M [facility] Rx#:[id number] cefTRIAXone 2 gm In 100 Sodium Chloride 0.9% 50 ml @ 100 mls/hr IVPB Q24H [facility] Rx#:[id number] metroNIDAZOLE-NS PMX 500 100 mg In Saline 1 100ml.bag @ 100 mls/hr IVPB Q8H [facility] Rx#:[id number] Oral 600 Output: Urine 1000 800 Straight 1000 Other: Voiding Method Indwelling Catheter Indwelling Catheter - Labs CBC & Chem 7: 12/25/20 06:22 12/24/20 05:21 Labs: Abnormal Lab Results - Last 24 Hours (Table) 12/25/20 Range/Units 06:22 RBC 3.91 L (4.10-5.20) X 10*6/uL Hgb 11.6 L (12.0-15.0) g/dL Hct 37.0 L (37.2-46.3) % MCHC 31.4 L (32.0-37.0) g/dL RDW 15.8 H (11.5-14.5) % Lymphocytes # 0.66 L (0.90-5.00) X 10*3/uL Microbiology - Last 24 Hours (Table) 12/23/20 11:10 Blood Culture - Preliminary Blood No Growth after 48 hours 12/23/20 11:20 Blood Culture - Preliminary Blood No Growth after 48 hours Assessment and Plan (1) Anticoagulant long-term use Current Visit: Yes Status: Acute Code(s): Z79.01 - BUSINESS MANAGEMENT MANAGER (CURRENT) USE OF ANTICOAGULANTS SNOMED Code(s): 075516454 (2) Atrial fibrillation Current Visit: Yes Status: Acute Code(s): I48.91 - UNSPECIFIED ATRIAL FIBRILLATION SNOMED Code(s): 63032546 (3) Perforation of sigmoid colon due to diverticulitis Current Visit: Yes Status: Acute Code(s): K57.20 - DVTRCLI OF LG INT W PERFORATION AND ABSCESS W/O BLEEDING SNOMED Code(s): 7820822778800305
[2020-12-25 14:46] VITALS: BP 169/74; PULSE 59; TEMP 98.6
[2020-12-25 18:03] LABS: African American GFR (CKD) 80.7 (60.0-200.0); Anion Gap 8.8 mmol/L (4.00-12.00); Carbon Dioxide 19.2 mmol/L (21.6-31.8); Magnesium 1.6 mg/dL (1.5-2.4); Non-African American GFR(CKD) 69.6 (60.0-200.0); Potassium 4.2 mmol/L (3.5-5.5)
[2020-12-25] MEDS ORDERED: FLECAINIDE 50 MG TAB PO SCH (21:00)
--- NOTE | 2020-12-25 21:29 | P.DS ---
Providers Date of admission: 12/23/20 12:08 Attending physician: Isabel Ji Consults: 12/23/20 11:42 Consult Physician Routine Consulting Provider: Saranya Odom Consult Reason/Comments: diverticulitis, Do you want consulting provider notified?: Already Contacted Primary care physician: Judith Loo Hospital Course: Final Diagnosis -Acute diverticulitis with phlegmon, sepsis secondary to diverticulitis: cannot rule out microperforation, general surgery consultation -History of paroxysmal atrial fibrillation - Xarelto, EKG shows SB with 1* AV Block -Hypertension: Patient is bit hypotensive we'll cut down the dose of lisinopril hold off on hydrochlorothiazide patient is also bradycardic because of which I'll hold off on atenolol. Patient will be continued on flecainide -History of breast cancer in 2017, right lumpectomy, continue on oral hormone therapy -Anemia, most likely an acute GI bleed secondary to acute diverticulitis, unable to rule out microperforation, occult blood positive, continue to monitor trends. Anxiety continue on Zoloft DVT prophylaxis: Xarelto Discharge Disposition Patient is discharged home on a low fiber diet and increase as tolerated. Pt can continue on xarelto, no signs of an active bleed, hemoglobin is stable. Repeat labs as an outpatient. Pt will f/u with PCP - Dr Judith Loo and Gen Surg. Hospital Course This is a pleasant 80 year old female who presents to the for sharp LLQ that is severe in nature. Patient denies diarrhea, but does report some streaks of blood. CT of the abdomen in the demonstrated severe diverticulitis with p hlegmon and a microperforation that cannot be ruled out. Pt denied any fever or chills, however, on admission patient had leukocytosis of 11.4, and a temp of 101.3. Patient was started on IV rocephin and had a consult to general surgery. Patient was placed on a clear liquid diet. Chest xray demonstrated cardiomegaly and chronic changes without new acute illness. Pt has a past medical history significant for paroxsymal atrial fibrillation, stable on xarelto, breast cancer with oral hormone therapy, hypertension, and in the last year pt had 7 colonoscopies at multiple facilities. Ultimately patient had a colonoscopy at [facility] and a sizable polyp was removed. Patient had a colonoscopy at [facility] in June of 2019, pathology from the ascending colon was positive for adenoma. Surgery services cleared the patient for discharge on oral antbiotics with flagyl and ceftin to complete therapy and to follow up with PCP, and surgery in the office. Patient had a james catheter placed for urinary retention on admission. It was removed on the day of discharge. Patient initially had difficulty voiding, however, was able to prior to discharge. on 12/25/20 Patient experienced a brief moment of chest fluttering, denied chest pain, pressure, dizziness, lightheadedness. EKG was taken and she was found to be in sinus bradycarday with a first degree AV block. There was no evidence for any ST or T wave changes. Pts flecainide dose was decreased, and beta rebeca was placed on hold. Pts lisinopril was decreased. Pt needs to follow up with her chromium plater for this. Leukocytosis has resolved, 5.95. Hgb is stable at 11.6. Chloride 110, and CO2 19.2. Magnesium was 1.6. 12/25/2020 On assessment, pt denies abominal pain. She denies n/v or diarrhea, and denies blood in the stool. Pt is tolerating a diet well. She denies chest pain, or palpitations. Denies cough and shortness of breath. Surgery has cleared the patient for discharge on oral antibiotic therapy with metronidazole and ceftin. Patient had a consult with the attending physician. Vital signs today, T-98.6, HR - 59, BP - 169/74. Labs are as described above. Lungs are clear to auscultation, S1 and S2 present, regular rate and rhythm, abdomen soft, nondistended, positive bowel sounds. There is no pedal edema and focal neurological exam is negative. Pt will repeat labs on discharge. Pt is educated to report back to the ER if she experiences any rectal bleeding or an increase in symptoms after discharge. Please see medication reconciliation for a list of current medications. Thank you for allowing us to participate in the care of this patient. Patient Condition at Discharge: Stable Plan - Discharge Summary Discharge Rx Participant: No New Discharge Prescriptions: New Flecainide [Tambocor] 75 mg PO BID #60 tab Cefuroxime Axetil [Ceftin] 500 mg PO BID 7 Days #14 tab metroNIDAZOLE [Flagyl] 500 mg PO Q8H 7 Days #21 tab lisinopriL [Zestril] 20 mg PO DAILY #30 tab Continue Anastrozole [Arimidex] 1 mg PO DAILY Sertraline [Zoloft] 50 mg PO HS hydrALAZINE HCL [Apresoline] 25 mg PO BID Rivaroxaban [Xarelto] 20 mg PO HS Cholecalciferol (Vitamin D3) [Vitamin D3 (125 MCG = 5,000 IU)] 125 mcg PO DAILY Discontinued Flecainide [Tambocor] 100 mg PO BID lisinopriL 40 mg PO DAILY atenoloL [Tenormin] 25 mg PO DAILY Discharge Medication List Anastrozole [Arimidex] 1 mg PO DAILY 07/01/16 [History] Rivaroxaban [Xarelto] 20 mg PO HS 12/27/18 [History] Sertraline [Zoloft] 50 mg PO HS 12/27/18 [History] hydrALAZINE HCL [Apresoline] 25 mg PO BID 12/27/18 [History] Cholecalciferol (Vitamin D3) [Vitamin D3 (125 MCG = 5,000 IU)] 125 mcg PO DAILY 12/23/20 [History] Cefuroxime Axetil [Ceftin] 500 mg PO BID 7 Days #14 tab 12/25/20 [Rx] Flecainide [Tambocor] 75 mg PO BID #60 tab 12/25/20 [Rx] lisinopriL [Zestril] 20 mg PO DAILY #30 tab 12/25/20 [Rx] metroNIDAZOLE [Flagyl] 500 mg PO Q8H 7 Days #21 tab 12/25/20 [Rx] Follow up Appointment(s)/Referral(s): Judith Loo MD [Primary Care Provider] - 1-2 days (Office closed. Please call office Monday for your appointment. Thank you.) Saranya Odom MD [STAFF PHYSICIAN] - 01/05/21 5:00 pm Ambulatory/Diagnostic Orders: Complete Blood Count w/diff [LAB.AMB] Time Frame: 3 Days, Location: None Selected Patient Instructions/Handouts: Diverticulitis (DC), Diverticulitis Diet (DC) Activity/Diet/Wound Care/Special Instructions: Continue following diet recommendations, initial low fiber until follow-up Discharge Disposition: HOME SELF-CARE
== END 2020-12-25 19:03 | disposition home or self-care (01) | DRG 871 ==
LOC: EC 08:18 → 4SSUR 12:08
PROVIDERS: ADMIT Internal Medicine; ATTEND Internal Medicine
DX: A41.9 Sepsis, unspecified organism (principal); K57.21 Diverticulitis of large intestine with perforation and abscess with bleeding; E87.2 Acidosis; D64.9 Anemia, unspecified; F41.9 Anxiety disorder, unspecified; I10 Essential (primary) hypertension; I95.9 Hypotension, unspecified; I44.0 Atrioventricular block, first degree; I48.0 Paroxysmal atrial fibrillation; Z79.01 Long term (current) use of anticoagulants; Z79.899 Other long term (current) drug therapy; Z85.3 Personal history of malignant neoplasm of breast; Z87.891 Personal history of nicotine dependence; Z88.0 Allergy status to penicillin; Z90.710 Acquired absence of both cervix and uterus; Z90.721 Acquired absence of ovaries, unilateral; Z86.010 Personal history of colon polyps; Z20.822 Contact with and (suspected) exposure to COVID-19; Z98.890 Other specified postprocedural states; Z90.49 Acquired absence of other specified parts of digestive tract; Z90.89 Acquired absence of other organs; Z88.8 Allergy status to other drugs, medicaments and biological substances; Z79.890 Hormone replacement therapy
CPT/HCPCS: 36415; 71046; 74177; 80048; 80053; 81001; 82150; 82272; 83605; 83690; 83735; 85025; 85027; 87040; 87635; 93005; 96361; 96365; 96375; 99285

== ENCOUNTER → 2022-02-22 | Outpatient (CLI) | payer MEDICARE, BC | END | disposition home or self-care (01) | LOC: LABWHC1 10:25 | PROVIDERS: ATTEND Internal Medicine Medical Oncology | DX: Z53.9 Procedure and treatment not carried out, unspecified reason (principal) ==

== ENCOUNTER 2022-11-26 14:26 | Emergency (ER) | payer BC, MEDICARE ==
[2022-11-26 14:33] VITALS: BP 163/64; PULSE 47; RESP 16
--- NOTE | 2022-11-26 15:03 | ED ---
General Adult HPI - General Chief complaint: Head Injury Stated complaint: FALL ON THINNERS Time Seen by Provider: 11/26/22 14:48 Source: patient, RN notes reviewed, old records reviewed Mode of arrival: ambulatory Limitations: no limitations - History of Present Illness Initial comments: 82-year-old female presents status post trip and fall with head injury. Patient is currently on Xarelto. Patient states she was going up the stairs, tripped on the final step falling into the wall. She states she fell into the corner of the wall striking both sides of her forehead. No loss consciousness. No neck pain. This was mechanical in nature. - Related Data Home Medications Medication Instructions Recorded Confirmed Anastrozole [Arimidex] 1 mg PO DAILY 07/01/16 12/23/20 Rivaroxaban [Xarelto] 20 mg PO HS 12/27/18 12/23/20 Sertraline [Zoloft] 50 mg PO HS 12/27/18 12/23/20 hydrALAZINE HCL [Apresoline] 25 mg PO BID 12/27/18 12/23/20 Cholecalciferol (Vitamin D3) 125 mcg PO DAILY 12/23/20 12/23/20 [Vitamin D3 (125 MCG = 5,000 IU)] Previous Rx's Medication Instructions Recorded Flecainide [Tambocor] 75 mg PO BID #60 tab 12/25/20 cefUROXime axetiL [Ceftin] 500 mg PO BID 7 Days #14 tab 12/25/20 lisinopriL [Zestril] 20 mg PO DAILY #30 tab 12/25/20 metroNIDAZOLE [Flagyl] 500 mg PO Q8H 7 Days #21 tab 12/25/20 Allergies Allergy/AdvReac Type Severity Reaction Status Date / Time Penicillins AdvReac Red face Verified 11/26/22 14:29 Oral steroids AdvReac Red face Uncoded 11/26/22 14:29 Review of Systems ROS Statement: Those systems with pertinent positive or pertinent negative responses have been documented in the HPI. ROS Other: All systems not noted in ROS Statement are negative. Past Medical History Past Medical History: Atrial Fibrillation, Cancer, Hypertension Additional Past Medical History / Comment(s): hx rt breast CA-2017-no radiation or chemo. colitis. hx of ocular migraine History of Any Multi-Drug Resistant Organisms: None Reported Past Surgical History: Adenoidectomy, Appendectomy, Section, Hysterectomy, Tonsillectomy Additional Past Surgical History / Comment(s): right lumpectomy. left ovary removed 1967. colon polyp removal Past Anesthesia/Blood Transfusion Reactions: No Reported Reaction Past Psychological History: Anxiety Smoking Status: Never smoker Past Alcohol Use History: None Reported Past Drug Use History: None Reported - Past Family History Mother Family Medical History: Cancer General Exam Limitations: no limitations General appearance: alert, in no apparent distress Head exam: Present: other (Right temporal hematoma no laceration) Eye exam: Present: normal appearance, PERRL, EOMI ENT exam: Present: normal exam Neck exam: Present: normal inspection, tenderness, full ROM Respiratory exam: Present: normal lung sounds bilaterally. Absent: respiratory distress Cardiovascular Exam: Present: normal rhythm, bradycardia GI/Abdominal exam: Present: soft. Absent: distended, tenderness, guarding Extremities exam: Present: normal inspection, normal capillary refill. Absent: pedal edema Neurological exam: Present: alert, oriented X3, CN II-XII intact. Absent: motor sensory deficit Psychiatric exam: Present: normal affect, normal mood Skin exam: Present: warm, dry, intact Course Vital Signs 11/26/22 14:30 Pulse Rate 47 L Respiratory 16 Rate Blood Pressure 163/64 O2 Sat by Pulse 99 Oximetry Medical Decision Making - Medical Decision Making Was pt. sent in by a medical professional or institution ([facility], ORDER ENTRY, urgent care, hospital, or [facility]...) When possible be specific @ -No Did you speak to anyone other than the patient for history (EMS, parent, family, police, friend...)? What history was obtained from this source @ -No Did you review nursing and triage notes (agree or disagree)? Why? @ -I reviewed and agree with nursing and triage notes Were old charts reviewed (outside hosp., previous admission, EMS record, old EKG, old radiological studies, urgent care reports/EKG's, [facility] records)? Report findings @ -No old charts were reviewed Differential Diagnosis (chest pain, altered mental status, abdominal pain women, abdominal pain men, vaginal bleeding, weakness, fever, dyspnea, syncope, headache, dizziness, GI bleed, back pain, seizure, CVA, palpatations, mental health, musculoskeletal)? @ -[Intracranial hemorrhage, concussion, skull fracture, cervical fracture or subluxation EKG interpreted by me (3pts min.). @ -As above X-rays interpreted by me (1pt min.). @ -None done CT interpreted by me (1pt min.). @ CT brain and cervical spine negative for acute traumatic injury, no intracranial hemorrhage or mass effect U/S interpreted by me (1pt. min.). @ -None done What testing was considered but not performed or refused? (CT, X-rays, U/S, labs)? Why? @ -None What meds were considered but not given or refused? Why? @ -None Did you discuss the management of the patient with other professionals (professionals i.e. Dr., PA, ORDER ENTRY, lab, RT, psych nurse, elementary school social worker, chemistry quality control analyst, teacher, investment officer, case filler)? Give summary @ -No Was smoking cessation discussed for >3mins.? @ -No Was critical care preformed (if so, how long)? @ -No Were there social determinants of health that impacted care today? How? (Homelessness, low income, unemployed, alcoholism, drug addiction, transportation, low edu. Level, literacy, decrease access to med. care, senior care, rehab)? @ -No Was there de-escalation of care discussed even if they declined (Discuss DNR or withdrawal of care, Hospice)? DNR status @ -No What co-morbidities impacted this encounter? (DM, HTN, Smoking, COPD, CAD, Cancer, CVA, ARF, Chemo, Hep., AIDS, mental health diagnosis, sleep apnea, morbid obesity)? @ -[Anticoagulation Was patient admitted / discharged? Hospital course, mention meds given and route, prescriptions, significant lab abnormalities, going to OR and other pertinent info. @ 82-year-old female with mechanical fall, head injury, head CT is negative for intracranial hemorrhage or mass effect cervical spine negative for fracture or subluxation Undiagnosed new problem with uncertain prognosis? @ -No Drug Therapy requiring intensive monitoring for toxicity (Heparin, Nitro, Insulin, Cardizem)? @ -No Were any procedures done? @ -No Diagnosis/symptom? @ Concussion Acute, or Chronic, or Acute on Chronic? @Acute Uncomplicated (without systemic symptoms) or Complicated (systemic symptoms)? @ -default Side effects of treatment? @ -No Exacerbation, Progression, or Severe Exacerbation? @ -No Poses a threat to life or bodily function? How? (Chest pain, USA, OR, pneumonia, PE, COPD, DKA, ARF, appy, cholecystitis, CVA, Diverticulitis, Homicidal, Suicidal, threat to staff... and all critical care pts) @ -[Low risk at this time Disposition Clinical Impression: Concussion without loss of consciousness Disposition: HOME SELF-CARE Condition: Good Instructions (If sedation given, give patient instructions): Concussion (ED) Is patient prescribed a controlled substance at d/c from ED?: No Referrals: Judith Loo MD [Primary Care Provider] - 1-2 days Time of Disposition: 15:40
--- NOTE | 2022-11-26 15:31 | CT ---
EXAMINATION TYPE: CT brain allyssa mcmillan con DATE OF EXAM: 11/26/2022 COMPARISON: 11/17/2017 HISTORY: fall CT DLP: 1352.7 mGycm Automated exposure control for dose reduction was used. TECHNIQUE: CT scan of the head and cervical spine are performed without contrast. FINDINGS: Head CT: There is no acute intracranial hemorrhage, mass effect, or midline shift identified. The ventricles and sulci are within normal limits in size. The globes are intact and the visualized sinuses are cl ear. There is moderate age-appropriate atrophy. CT cervical spine: Cervical spine is visualized in its entirety from C1 through upper thoracic levels and demonstrates s atisfactory alignment without evidence of acute fracture or dislocation. Prevertebral soft tissue ap pears within normal limits. The C1-C2 articulation is unremarkable. There are multiple calcific den sities immediately adjacent to the distal tip of the clivus likely represents remote trauma to the cl ivus given the bony fragments are well-corticated. There is advanced degenerative change of the C5-6 and C6-7 discs there is loss of the normal cervical lordosis. There are multilevel degenerative gutierrez es of the facets and uncovertebral joints. There is no bony encroachment of the spinal canal. IMPRESSION: 1. There is no acute fracture or dislocation evident in the cervical spine. Evidence for remote traum a to the distal aspect of the clivus. 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 2. No acute intracranial hemorrhage, mass effect, or midline shift is seen. 3.Age-appropriate atrophy.
== END 2022-11-26 16:24 | disposition home or self-care (01) ==
LOC: EC 14:26
DX: S06.0X0A Concussion without loss of consciousness, initial encounter (principal); I10 Essential (primary) hypertension; I48.91 Unspecified atrial fibrillation; F41.9 Anxiety disorder, unspecified; Z79.899 Other long term (current) drug therapy; Z88.0 Allergy status to penicillin; Z88.8 Allergy status to other drugs, medicaments and biological substances; Z79.01 Long term (current) use of anticoagulants; W10.9XXA Fall (on) (from) unspecified stairs and steps, initial encounter; Y93.01 Activity, walking, marching and hiking
CPT/HCPCS: 70450; 72125; 99283

== ENCOUNTER 2024-02-28 16:41 | Emergency (ER) | payer MEDICARE ==
[2024-02-28 16:46] VITALS: TEMP 97.4
[2024-02-28 17:54] LABS: Basophils # (A) 0.1 k/uL (0-0.2); Basophils % (A) 1 %; Eosinophils # (A) 0.2 k/uL (0-0.7); Eosinophils % (A) 3 %; HCT 45.4 % (34.0-46.0); HGB 14.9 gm/dL (11.4-16.0); Lymphocytes # (A) 0.9 k/uL (1.0-4.8); Lymphocytes % (A) 19 %; MCH 32.7 pg (25.0-35.0); MCHC 32.9 g/dL (31.0-37.0); MCV 99.6 fL (80.0-100.0); Macrocytosis Slight; Mean Platelet Volume 10.2; Monocytes # (A) 0.3 k/uL (0-1.0); Monocytes % (A) 6 %; Neutrophils # (A) 3.3 k/uL (1.3-7.7); Neutrophils % (A) 69 %; Platelet Count 161 k/uL (150-450); RBC 4.56 m/uL (3.80-5.40); RDW 14.5 % (11.5-15.5); WBC 4.8 k/uL (3.8-10.6)
[2024-02-28 18:06] LABS: ALT 23 U/L (4-34); AST 30 U/L (14-36); African American GFR (CKD) 43 (>60 ml/min/1.73 sqM); Albumin 4.2 g/dL (3.5-5.0); Alkaline Phosphatase 123 U/L (38-126); Anion Gap 5 mmol/L; Blood Urea Nitrogen 35 mg/dL (7-17); Calcium 9.1 mg/dL (8.4-10.2); Carbon Dioxide 25 mmol/L (22-30); Chloride 108 mmol/L (98-107); Glucose 112 mg/dL (74-99); Lipase 217 U/L (23-300); Non-African American GFR(CKD) 38 (>60 ml/min/1.73 sqM); Potassium 5.4 mmol/L (3.5-5.1); Sodium 138 mmol/L (137-145); Total Bilirubin 1.6 mg/dL (0.2-1.3)
[2024-02-28 18:28] LABS: Partial Thromboplastin Time 29.1 sec (22.0-30.0); Prothrombin Time 11.1 sec (10.0-12.5)
[2024-02-28] MEDS: SODIUM CHLORIDE 0.9% 500 ML 500 ML IV STA (18:28)
--- NOTE | 2024-02-28 19:08 | ED ---
GI Bleed HPI - General Chief complaint: GI Bleed Stated complaint: GI bleed Time Seen by Provider: 02/28/24 16:56 Source: patient, RN notes reviewed Mode of arrival: ambulatory Limitations: no limitations - History of Present Illness Initial comments: This is an 83-year-old female presenting with for GI bleed for the past 2 nights. Patient endorses diarrhea with both dark and bright red blood that resolved by the next morning before returning the following night. Patient denies associated weakness, dizziness, abdominal pain, nausea/vomiting. Endorses use of Xarelto for A-fib. Also endorses history of diverticulitis, colonic polyps, sigmoid perforation, cancer, hypertension. Denies history of GERD but endorses transient epigastric pain about 1 month ago that is since resolved. Denies fever, chills, chest pain, dyspnea. MD complaint: other (Darkened and red diarrhea) Onset/Timin -: days(s) Quality: painless Consistency: intermittent Context: history of GI bleed Treatments Prior to Arrival: none - Related Data Home Medications Medication Instructions Recorded Confirmed Rivaroxaban [Xarelto] 20 mg PO HS 12/27/18 02/28/24 Sertraline [Zoloft] 50 mg PO HS 12/27/18 02/28/24 hydrALAZINE HCL [Apresoline] 25 mg PO BID 12/27/18 02/28/24 Dicyclomine [Bentyl] 10 mg PO BID 02/28/24 02/28/24 Flecainide Acetate [Tambocor] 100 mg PO BID 02/28/24 02/28/24 atenoloL [Tenormin] 25 mg PO DAILY 02/28/24 02/28/24 lisinopriL 40 mg PO DAILY 02/28/24 02/28/24 Allergies Allergy/AdvReac Type Severity Reaction Status Date / Time Sulfa (Sulfonamide Allergy palms Verified 02/28/24 17:23 Antibiotics) itched Penicillins AdvReac Red face Verified 02/28/24 17:23 Oral steroids AdvReac Red face Uncoded 02/28/24 17:23 Review of Systems ROS Statement: Those systems with pertinent positive or pertinent negative responses have been documented in the HPI. ROS Other: All systems not noted in ROS Statement are negative. Past Medical History Past Medical History: Atrial Fibrillation, Cancer, Hypertension Additional Past Medical History / Comment(s): hx rt breast CA-2017-no radiation or chemo. colitis. hx of ocular migraine History of Any Multi-Drug Resistant Organisms: None Reported Past Surgical History: Adenoidectomy, Appendectomy, Section, Hysterectomy, Tonsillectomy Additional Past Surgical History / Comment(s): right lumpectomy. left ovary removed 1967. colon polyp removal Past Anesthesia/Blood Transfusion Reactions: No Reported Reaction Past Psychological History: Anxiety Smoking Status: Never smoker Past Alcohol Use History: None Reported Past Drug Use History: None Reported - Past Family History Mother Family Medical History: Cancer General Exam Limitations: no limitations General appearance: alert, in no apparent distress Head exam: Present: atraumatic, normocephalic, normal inspection Eye exam: Present: normal appearance, PERRL, EOMI. Absent: scleral icterus, conjunctival injection, periorbital swelling ENT exam: Present: normal exam, mucous membranes moist Neck exam: Present: normal inspection. Absent: tenderness, meningismus, lymphadenopathy Respiratory exam: Present: normal lung sounds bilaterally. Absent: respiratory distress, wheezes, rales, rhonchi, stridor Cardiovascular Exam: Present: regular rate, normal rhythm, normal heart sounds. Absent: systolic murmur, diastolic murmur, rubs, gallop, clicks GI/Abdominal exam: Present: soft, normal bowel sounds. Absent: distended, tenderness, guarding, rebound, rigid Rectal exam: Present: normal inspection, normal rectal tone, black stool Extremities exam: Present: normal inspection, full ROM, normal capillary refill. Absent: tenderness, pedal edema, joint swelling, calf tenderness Back exam: Present: normal inspection Neurological exam: Present: alert, oriented X3, CN II-XII intact Psychiatric exam: Present: normal affect, normal mood Skin exam: Present: warm, dry, intact, normal color. Absent: rash Course Vital Signs 02/28/24 02/28/24 02/28/24 16:43 18:21 18:56 Temperature 97.4 F L Pulse Rate 63 64 69 Respiratory 20 18 18 Rate Blood Pressure 164/74 190/93 190/91 O2 Sat by Pulse 98 99 97 Oximetry Medical Decision Making - Medical Decision Making Was pt. sent in by a medical professional or institution (, PA, ACOUSTICAL CARPENTER, urgent care, hospital, or [facility]...) When possible be specific @ -[No] Did you speak to anyone other than the patient for history (EMS, parent, family, police, friend...)? What history was obtained from this source @ -[No] Did you review nursing and triage notes (agree or disagree)? Why? @ -[I reviewed and agree with nursing and triage notes] Were old charts reviewed (outside hosp., previous admission, EMS record, old EKG, old radiological studies, urgent care reports/EKG's, [facility] records)? Report findings @ -[No old charts were reviewed] Differential Diagnosis (chest pain, altered mental status, abdominal pain women, abdominal pain men, vaginal bleeding, weakness, fever, dyspnea, syncope, headache, dizziness, GI bleed, back pain, seizure, CVA, palpatations, mental health, musculoskeletal)? @ -Differential Abdominal Pain Women: Appendicitis, Cholecystitis, diverticulosis, ischemic bowel, pancreatitis, hepatitis, UTI, gastroenteritis, AAA, incarcerated hernia, bowel obstruction, constipation, inflammatory bowel, hepatitis, peptic ulcer disease, splenic infarction, perforated viscus, vulvitis, ovarian torsion, PID, kidney stone, placenta abruption, this is not meant to be an all-inclusive list EKG interpreted by me (3pts min.). @ -Initial EKG shows A-fib with slow ventricular response at [address] c hanges or T wave inversion. Patient states this is normal for her and her and her conservation science officer are aware. Patient denies associated dizziness, altered LOC or altered mental status. Ventricular rate 38 bpm, QRS duration 112 ms, QTc 425 ms. Second twelve-lead performed when patient was ambulatory shows a near regular rhythm with no P wave and no ST changes or inverted T waves. Ventricular rate 61 bpm, QRS duration 132 ms, QTc 478 ms. Heart rate returned back to A-fib with slow ventricular response when patient was resting in bed again. Ventricular rate 38 bpm, QRS duration 104 ms, QTc 395 ms. X-rays interpreted by me (1pt min.). @ -[None done] CT interpreted by me (1pt min.). @ -[None done] U/S interpreted by me (1pt. min.). @ -[None done] What testing was considered but not performed or refused? (CT, X-rays, U/S, labs)? Why? @ -[None] What meds were considered but not given or refused? Why? @ -[None] Did you discuss the management of the patient with other professionals (lizzy mcelroy i.e. , PA, ACOUSTICAL CARPENTER, lab, RT, psych nurse, oncology social work, freelance displayer, teacher, motorcycle police officer, classification case manager)? Give summary @ -[No] Was smoking cessation discussed for >3mins.? @ -[No] Was critical care preformed (if so, how long)? @ -[No] Were there social determinants of health that impacted care today? How? (Homelessness, low income, unemployed, alcoholism, drug addiction, transportation, low edu. Level, literacy, decrease access to med. care, nursing home, rehab)? @ -[No] Was there de-escalation of care discussed even if they declined (Discuss DNR or withdrawal of care, Hospice)? DNR status @ -[No] What co-morbidities impacted this encounter? (DM, HTN, Smoking, COPD, CAD, Cancer, CVA, ARF, Chemo, Hep., AIDS, mental health diagnosis, sleep apnea, morbid obesity)? @ -Hypertension, cancer, CKD, A-fib Was patient admitted / discharged? Hospital course, mention meds given and route, prescriptions, significant lab abnormalities, going to OR and other pertinent info. @ -[hospital course] Undiagnosed new problem with uncertain prognosis? @ -[No] Drug Therapy requiring intensive monitoring for toxicity (Heparin, Nitro, Insulin, Cardizem)? @ -[No] Were any procedures done? @ -[No] Diagnosis/symptom? @ -[default] Acute, or Chronic, or Acute on Chronic? @ -Acute Uncomplicated (without systemic symptoms) or Complicated (systemic symptoms)? @ -Complicated Side effects of treatment? @ -[No] Exacerbation, Progression, or Severe Exacerbation? @ -[No] Poses a threat to life or bodily function? How? (Chest pain, USA, MD, pneumonia, PE, COPD, DKA, ARF, appy, cholecystitis, CVA, Diverticulitis, Homicidal, Suicidal, threat to staff... and all critical care pts) @ -[No] - Lab Data Result diagrams: 02/28/24 17:14 02/28/24 17:14 Lab Results 02/28/24 02/28/24 02/28/24 Range/Units 17:14 17:14 17:14 WBC 4.8 (3.8-10.6) k/uL RBC 4.56 (3.80-5.40) m/uL Hgb 14.9 (11.4-16.0) gm/dL Hct 45.4 (34.0-46.0) % MCV 99.6 (80.0-100.0) fL MCH 32.7 (25.0-35.0) pg MCHC 32.9 (31.0-37.0) g/dL RDW 14.5 (11.5-15.5) % Plt Count 161 (150-450) k/uL MPV 10.2 Neutrophils % 69 % Lymphocytes % 19 % Monocytes % 6 % Eosinophils % 3 % Basophils % 1 % Neutrophils # 3.3 (1.3-7.7) k/uL Lymphocytes # 0.9 L (1.0-4.8) k/uL Monocytes # 0.3 (0-1.0) k/uL Eosinophils # 0.2 (0-0.7) k/uL Basophils # 0.1 (0-0.2) k/uL Macrocytosis Slight PT 11.1 (10.0-12.5) sec INR 1.0 (<1.2) APTT 29.1 (22.0-30.0) sec Sodium 138 (137-145) mmol/L Potassium 5.4 H (3.5-5.1) mmol/L Chloride 108 H (98-107) mmol/L Carbon Dioxide 25 (22-30) mmol/L Anion Gap 5 mmol/L BUN 35 H (7-17) mg/dL Creatinine 1.31 H (0.52-1.04) mg/dL Est GFR (CKD-EPI)AfAm 43 (>60 ml/min/1.73 sqM) Est GFR (CKD-EPI)NonAf 38 (>60 ml/min/1.73 sqM) Glucose 112 H (74-99) mg/dL Plasma Lactic Acid Mitch (0.7-2.0) mmol/L Calcium 9.1 (8.4-10.2) mg/dL Total Bilirubin 1.6 H (0.2-1.3) mg/dL AST 30 (14-36) U/L ALT 23 (4-34) U/L Alkaline Phosphatase 123 (38-126) U/L Troponin I (0.000-0.034) ng/mL NT-Pro-B Natriuret Pep pg/mL Total Protein 7.0 (6.3-8.2) g/dL Albumin 4.2 (3.5-5.0) g/dL Lipase 217 (23-300) U/L Stool Occult Blood (Negative) 02/28/24 02/28/24 02/28/24 Range/Units 17:14 17:14 18:29 WBC (3.8-10.6) k/uL RBC (3.80-5.40) m/uL Hgb (11.4-16.0) gm/dL Hct (34.0-46.0) % MCV (80.0-100.0) fL MCH (25.0-35.0) pg MCHC (31.0-37.0) g/dL RDW (11.5-15.5) % Plt Count (150-450) k/uL MPV Neutrophils % % Lymphocytes % % Monocytes % % Eosinophils % % Basophils % % Neutrophils # (1.3-7.7) k/uL Lymphocytes # (1.0-4.8) k/uL Monocytes # (0-1.0) k/uL Eosinophils # (0-0.7) k/uL Basophils # (0-0.2) k/uL Macrocytosis PT (10.0-12.5) sec INR (<1.2) APTT (22.0-30.0) sec Sodium (137-145) mmol/L Potassium (3.5-5.1) mmol/L Chloride (98-107) mmol/L Carbon Dioxide (22-30) mmol/L Anion Gap mmol/L BUN (7-17) mg/dL Creatinine (0.52-1.04) mg/dL Est GFR (CKD-EPI)AfAm (>60 ml/min/1.73 sqM) Est GFR (CKD-EPI)NonAf (>60 ml/min/1.73 sqM) Glucose (74-99) mg/dL Plasma Lactic Acid Mitch 1.2 (0.7-2.0) mmol/L Calcium (8.4-10.2) mg/dL Total Bilirubin (0.2-1.3) mg/dL AST (14-36) U/L ALT (4-34) U/L Alkaline Phosphatase (38-126) U/L Troponin I (0.000-0.034) ng/mL NT-Pro-B Natriuret Pep 1130 pg/mL Total Protein (6.3-8.2) g/dL Albumin (3.5-5.0) g/dL Lipase (23-300) U/L Stool Occult Blood Positive H (Negative) 02/28/24 Range/Units 18:29 WBC (3.8-10.6) k/uL RBC (3.80-5.40) m/uL Hgb (11.4-16.0) gm/dL Hct (34.0-46.0) % MCV (80.0-100.0) fL MCH (25.0-35.0) pg MCHC (31.0-37.0) g/dL RDW (11.5-15.5) % Plt Count (150-450) k/uL MPV Neutrophils % % Lymphocytes % % Monocytes % % Eosinophils % % Basophils % % Neutrophils # (1.3-7.7) k/uL Lymphocytes # (1.0-4.8) k/uL Monocytes # (0-1.0) k/uL Eosinophils # (0-0.7) k/uL Basophils # (0-0.2) k/uL Macrocytosis PT (10.0-12.5) sec INR (<1.2) APTT (22.0-30.0) sec Sodium (137-145) mmol/L Potassium (3.5-5.1) mmol/L Chloride (98-107) mmol/L Carbon Dioxide (22-30) mmol/L Anion Gap mmol/L BUN (7-17) mg/dL Creatinine (0.52-1.04) mg/dL Est GFR (CKD-EPI)AfAm (>60 ml/min/1.73 sqM) Est GFR (CKD-EPI)NonAf (>60 ml/min/1.73 sqM) Glucose (74-99) mg/dL Plasma Lactic Acid Mitch (0.7-2.0) mmol/L Calcium (8.4-10.2) mg/dL Total Bilirubin (0.2-1.3) mg/dL AST (14-36) U/L ALT (4-34) U/L Alkaline Phosphatase (38-126) U/L Troponin I <0.012 (0.000-0.034) ng/mL NT-Pro-B Natriuret Pep pg/mL Total Protein (6.3-8.2) g/dL Albumin (3.5-5.0) g/dL Lipase (23-300) U/L Stool Occult Blood (Negative) Disposition Clinical Impression: Hematochezia, Melena Disposition: HOME SELF-CARE Condition: Good Instructions (If sedation given, give patient instructions): Gastrointestinal Bleeding (ED) Is patient prescribed a controlled substance at d/c from ED?: No Referrals: Judith Loo MD [Primary Care Provider] - 1-2 days Tara Treviño MD [STAFF PHYSICIAN] - 1-2 days Time of Disposition: 21:10
--- NOTE | 2024-02-28 20:16 | CT ---
EXAMINATION TYPE: CT abdomen pelvis w con DATE OF EXAM: 02/28/2024 7:48 PM COMPARISON: CT abdomen pelvis most recent from 12/23/2020. CLINICAL INDICATION: Female, 83 years old with history of Melena; Dark red and bright red stool. Diar nellie. TECHNIQUE: Axial CT abdomen pelvis w con;Sagittal and coronal reformats were created on a separate w orkstation. Contrast used:80 ml mL of Isovue 300 with IV Contrast, (none if empty) Oral contrast used: without Oral Contrast (none if empty) CT DLP: 1210.6 mGycm, Automated exposure control for dose reduction was used. FINDINGS: LOWER CHEST: The heart is enlarged for size. Elevated left diaphragm ABDOMEN LIVER: Simple appearing cyst near the falciform ligament. GALLBLADDER AND BILE DUCTS: Unremarkable. PANCREAS: Unremarkable. SPLEEN: Unremarkable. ADRENAL GLANDS: Unremarkable. KIDNEYS AND URETERS: No evidence of hydronephrosis or renal calculus. The ureters are unremarkable. PELVIS BLADDER: No evidence for wall thickening or mass given limitations of exam. REPRODUCTIVE: The uterus is surgically absent. ABDOMEN & PELVIS STOMACH AND BOWEL: No evidence of bowel obstruction. Scattered colonic diverticula. Artery contents i n the right colon. PERITONEUM/RETROPERITONEUM: No evidence of pneumoperitoneum or free fluid. VASCULATURE: No evidence of aortic aneurysm. MUSCULOSKELETAL: No acute osseous abnormalities LYMPH NODES: No gross evidence for lymphadenopathy. SOFT TISSUE/ABDOMINAL WALL: Unremarkable IMPRESSION: 1. No evidence for acute abdominal process. 2. Colonic diverticulosis. 3. Elevated left diaphragm. 4. Mild cardiomegaly. 5. Watery stool in the colon correlate for diarrhea. [facility], , 02/28/2024 8:14 PM
[2024-02-28 21:37] VITALS: BP 152/66; PULSE 50; RESP 20
== END 2024-02-28 21:37 | disposition home or self-care (01) ==
LOC: EC 16:41
DX: K92.1 Melena (principal); Z88.0 Allergy status to penicillin; Z88.2 Allergy status to sulfonamides; Z88.1 Allergy status to other antibiotic agents
CPT/HCPCS: 36415; 83880; 80053; 83605; 83690; 84484; 85025; 85610; 85730; 82272; 74177; 99285; 96360; 96361 ×2; Q9967

== ENCOUNTER → 2024-03-12 | Day surgery (SDC) | payer MEDICARE ==
[2024-03-07 15:12] VITALS: BMI 26.6
[~2024-03-12] MED LIST changes: -ATROPINE SULFATE 0.1 MG/ML 10ML SYRINGE ONE; -LACTATED RINGERS 1,000 ML IV SCH; -LIDOCAINE 1% (10MG/ML) FOR IV START INTRADERMA PRN; +fentaNYL (PF) 50 MCG/ML 2 ML AMP ONE
[2024-03-12 09:26] VITALS: TEMP 98.8
[2024-03-12] MEDS: LACTATED RINGERS 1,000 ML IV SCH (09:30)
[2024-03-12] MEDS: IV FLUID CONTINUATION 1,000 ML IV ONE ×2 (09:30→10:06)
[2024-03-12] MEDS: LIDOCAINE 1% (10MG/ML) FOR IV START INTRADERMA STA (09:30)
--- NOTE | 2024-03-12 10:43 | P.PCN ---
Date of Procedure: 03/12/24 Procedure(s) Performed: BRIEF HISTORY: Patient is a 83-year-old pleasant white female scheduled for an elective colonoscopy as a part of evaluation of intermittent rectal bleeding and follow-up large ascending colon polyp that was diagnosed 4 years ago for which she underwent endoscopy mucosal resection at [facility] by Dr. Lea PROCEDURE PERFORMED: Colonoscopy with biopsy.. PREOPERATIVE DIAGNOSIS: Intermittent rectal bleeding and follow-up large ascending colon polyp. IV sedation per Anesthesia. PROCEDURE: After informed consent was obtained, the patient, was brought into the endoscopy unit. IV sedation was administered by Anesthesia under continuous monitoring. Digital rectal examination was normal. Initially the Olympus CF-160 flexible video colonoscope was then inserted in the rectum, gradually advanced into the colon further advancement was not possible. The scope was removed and a. Colonoscopy was then inserted to the rectumand gradually advanced into the cecum with moderate to severe difficulty. Careful examination was performed as the scope was gradually being withdrawn. Ileocecal valve and the appendiceal orifice were visualized and appeared normal. Prep was fair.. Mucosa of the cecum, had 2 small nonbleeding arteriovenous malformations noted. In the ascen ding colon at the site of previous polypectomy site there was a 3 mm ascending polyp that was removed by cold biopsy. Rest of the ascending colon, normal. The transverse colon there was another 3 mm polyp that was removed by cold biopsy. Rest of the transverse colon, descending colon, sigmoid colon, and rectum appeared normal. Sigmoid diverticulosis retroflexion was performed in the rectum and internal hemorrhoids were seen. The patient tolerated the procedure well. IMPRESSION: 3 mm residual polyp in the ascending colon status post cold biopsy 3 mm transverse colon polyp status post cold biopsy Moderate sigmoid diverticulosis. 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 Small internal hemorrhoids RECOMMENDATIONS: Findings of this examination were discussed with the patient as well as her her family. She was advised to follow with the biopsy results. Continue with a high-fiber diet and take fiber supplement on a regular basis. Advised to use [id number] Imodium as needed for chronic diarrhea. Follow- up in the office in 2 to 3 weeks.
[2024-03-12 11:04] VITALS: BP 122/62; PULSE 50; RESP 16
== END ==
LOC: ORWHC2ENDO 08:25
PROVIDERS: ATTEND Internal Medicine Gastroenterology
DX: K62.5 Hemorrhage of anus and rectum (principal); D12.2 Benign neoplasm of ascending colon; D12.3 Benign neoplasm of transverse colon; K63.5 Polyp of colon; K64.8 Other hemorrhoids; K57.30 Diverticulosis of large intestine without perforation or abscess without bleeding; K55.20 Angiodysplasia of colon without hemorrhage; Z86.0100 Personal history of colon polyps, unspecified; I48.91 Unspecified atrial fibrillation; F41.9 Anxiety disorder, unspecified; Z85.3 Personal history of malignant neoplasm of breast; Z79.01 Long term (current) use of anticoagulants; Z79.899 Other long term (current) drug therapy; Z90.49 Acquired absence of other specified parts of digestive tract; Z98.890 Other specified postprocedural states; Z88.2 Allergy status to sulfonamides
CPT/HCPCS: 88305; 45380; J2003; J3010; J2704; J1596